=== PATIENT | male | born 1960 | race Caucasian/White ===

== ENCOUNTER → 2018-04-08 15:50 | Outpatient (CLI) | payer MEDICARE, OTHER, SELFPAY ==
[2018-04-08 16:09] LABS: Basophils % 0.7 % (0.1-2.0); Eosinophils % 0.6 % (0.1-12.0); Hemoglobin 15.1 g/dL (14.1-18.0); Lymphocytes # 1.2 K/mm3 (0.7-4.5); Lymphocytes % 26.5 K/mm3 (10-50); Mean Corpuscular HGB Conc 32.2 g/dL (31.8-35.4); Mean Corpuscular Volume 93.2 fl (80-94); Mean Platelet Volume 8.8 fl (7.4-10.4); Monocytes # 0.2 K/mm3 (0.1-1.0); Monocytes % 4.8 % (1.7-9.3); Neutrophils # 2.9 K/mm3 (1.8-7.8); Neutrophils % 67.4 % (37.0-80.0); Platelet Count 115 K/mm3 (142-424); Red Blood Count 5.04 M/mm3 (4.60-6.20); Red Cell Distribution Width 13.1 % (11.5-17.5); White Blood Count 4.3 K/mm3 (4.8-10.8)
--- NOTE | 2018-04-08 16:16 | XR_ITS ---
XR chest 2V HISTORY: ORDERING PHYSICIAN: Fredi Whatley MD PATIENT AGE: 58 years COMPARISON: None FINDINGS: There is extensive gaseous distention of both large and small bowel with bilateral bowel interposition under the hemidiaphragm somewhat similar when compared 07/03/2014. There is mild bibasilar atelectasis. Unremarkable cardiovascular structures. Bone plate is noted over the right humerus. Upper lobes are clear. IMPRESSION: Elevated hemidiaphragm with gaseous distended large and small bowel with bowel interposition and mild bibasilar atelectasis
[2018-04-08 18:42] LABS: Anion Gap 12.5 mEq/L (5-15); Blood Urea Nitrogen 13 mg/dL (7-18); Calcium 9.3 mg/dL (8.5-10.1); Carbon Dioxide 30 mmol/L (21.0-32.0); Chloride 104 mmol/L (98-107); Creatinine,Serum 0.94 mg/dL (0.70-1.30); Estimated Glomerular Filt Rate 82 ml/min (>60); GFR (African American) 99 ML/MIN (>60); Glucose 94 mg/dL (74-106); Potassium 4.5 mmoL/L (3.5-5.1); Sodium 142 mmol/L (136-145)
== END ==
PROVIDERS: PCP Emergency Medicine; Visit Provider Orthopaedic Surgery
DX: Z01.818 Encounter for other preprocedural examination (principal); S62.101A Fracture of unspecified carpal bone, right wrist, initial encounter for closed fracture; S52.531A Colles' fracture of right radius, initial encounter for closed fracture; S52.601A Unspecified fracture of lower end of right ulna, initial encounter for closed fracture
CPT/HCPCS: 36415; 71046; 80048; 85025; 93005

== ENCOUNTER 2018-04-10 09:57 | Day surgery (SDC) | payer MEDICARE, OTHER, SELFPAY ==
[2018-04-09 14:04] VITALS: BMI 21.9
[2018-04-10] VITALS (11 sets, daily range): BP systolic 97–116; BP diastolic 68–84; PULSE 63–78; RESP 16–20; TEMP 36.2–43; O2SAT 94–99; BMI 21.9
--- NOTE | 2018-04-10 11:47 | P.PN_ITS ---
[facility] Anesthesia Checklist - Patient Identification Patient Identification: Arm Band, Verbal (Name & ) - Structural Data Admitted From: Home Planned Operative Procedure/s: Extra articular right distal radius ORIF Consent for Planned Operative Procedure(s) Verified: Yes Verified Documents: Surgical Consent, History and Physical - NPO Status Verified Time NPO: 20:00 - Additional verifications Anesthesia Reactions: No - Airway Assessment C-Spine Mobility Assessed: Yes TMJ Mobility Assessed: Yes Dentition: Good Dentition - Neurological Assessment Level of Consciousness: Awake Hx Seizures: Yes (Last episode 06/2014) Numbness or tingling in extremities: No - Anesthesia Plan Anesthesia Risk discussed: Yes Anesthesia Plan: Verified ASA Class: III Anesthesia Type: General - Preoperative Comments Pre-Operative Comments: Right Supraclaviculer nerve block [facility] Anesthesia HX I have reviewed the patient's past medical history: Yes Medical History: Reports:: Seizures Denies:: Cancer, Diabetes Mellitus Type 1, Diabetes Mellitus Type 2, Internal Pacemaker, MRSA Other Medical History: Denies: Blood Transfusion Reaction Other Surgeries: Yes: No Previous Surgery. No: Pacemaker Amputation: No Fractures: No *Family Hx:: Unable to obtain
--- NOTE | 2018-04-10 14:24 | XR_ITS ---
XR wrist RT 2V HISTORY ORIF right wrist ITS.REASON: IN OR ORIF,,1:50 FLUORO TIME ORDERING PHYSICIAN: Fredi Whatley MD PATIENT AGE: 58 years Comparison: 04/01/2018 FINDINGS: Fluoroscopy with C-arm utilized for ORIF of the comminuted right wrist fracture. Volar bone plate is present with multiple screws with good alignment of fracture fragments with minimal lateral displacement of the distal fracture fragment. IMPRESSION: Good alignment status post ORIF right distal radial fracture
--- NOTE | 2018-04-10 15:07 | HMH.ANESI ---
[facility] Anesthesia Record Part I Intake, IV Amount: 1,100 Estimated blood loss (mL): 50 Urine output (mL): 0 Blood Products used (#): none Blood Pressure: 115/84 SaO2: 96 Pulse Rate: 72 Respiratory Rate: 16 Temperature: 99.2 F Patient is:: Awake, Stable Stable to PACU at:: 15:02
--- NOTE | 2018-04-10 15:08 | P.PN_ITS ---
[facility] Anesthesia Record Part II Discharge Time: 15:32 Destination: [facility] PACU nurse assessment reviewed?: Yes Patient Condition:: Good Anesthesia Complications:: None
--- NOTE | 2018-04-10 15:08 | HMH.ANESII ---
[facility] Anesthesia Record Part II Discharge Time: 15:32 Destination: [facility] PACU nurse assessment reviewed?: Yes Patient Condition:: Good Anesthesia Complications:: None
--- NOTE | 2018-04-10 16:05 | PC.NURSE ---
1525[facility] 1 [address] dr last orders. see emar.
--- NOTE | 2018-04-11 12:04 | HMH.OPNOTE ---
Date of procedure: 04/10/18 Pre-op Diagnosis:: 1. Closed, comminuted, displaced distal radius fracture, right wrist 2. Closed, nondisplaced fracture distal ulna and ulnar styloid process, right wrist Post-op Diagnosis:: 1. Closed, comminuted, displaced distal radius fracture, right wrist 2. Closed, nondisplaced fracture distal ulna and ulnar styloid process, right wrist Procedure performed:: Open reduction and internal fixation, right distal radius Surgeon:: Fredi Whatley MD Weed Cutter(s):: Jessie Mccauley FISH SKINNING MACHINE FEEDER:: Other (Carlos Walker) Anesthesia: GETA, regional Estimated blood loss (mL): 30 Clinical Note:: Patient is a 58-year-old ambidextrous male who sustained a closed, comminuted and displaced fracture of her right distal radius and nondisplaced fracture of the right distal ulna following a mechanical fall about a week ago. Evaluation including x-rays of his right wrist showed a closed, comminuted and displaced fracture of the right distal radius and nondisplaced fracture of the distal ulna and ulnar styloid process. There was dorsal displacement and angulation angulation and foreshortening of the radius with loss of radial inclination and loss of the normal volar tilt of the distal radius. Surgery was indicated to reduce and stabilize the fracture in order to decrease pain, restore the anatomy and function. Operative findings:: Displaced, comminuted and unstable fracture of the right distal radius and a nondisplaced fracture of the distal ulna and ulnar styloid process as noted on the preoperative x-rays. Bone was noted to be osteoporotic and soft. Operative note:: On the day of the procedure, the patient was met in the preoperative area. The patient was positively identified, physical examination performed and documented. Following a detailed discussion with the patient about the management options including both nonsurgical and surgical, he elected to proceed with surgical remediation. After appropriate workup, the patient was brought to the hospital for surgery. I have again discussed the details of the procedure, risks and benefits, alternatives and the expected outcomes. The complications discussed include but are not limited to infection, bleeding, injury to nerves, tendons and blood vessels, incisional scar (cosmesis), DVT/PE, malunion, nonunion/delayed union, loss of position, refracture, wrist/finger stiffness, CRPS (complex regional pain syndrome- pain, sensory and temperature changes, swelling and stiffness), painful/prominent hardware, loss of fixation/hardware failure, incomplete relief of pain, incomplete return of function, posttraumatic arthritis and likely need for further surgery in future and also the risks of anesthesia including heart attack, stroke, and even . I have discussed how there is a small but real possibility of loss of use of the arm, loss of the limb or loss of life itself. I have also explained how additional surgery may be required if there are any complications or the fracture fails to heal. We have also discussed the postoperative pain management, recovery and rehabilitation, immobilization required, the likely need for physical therapy, the possibility of stiffness, chronic pain and we've also discussed the option of nonsurgical treatment. Patient expressed a full understanding and wished to proceed. The operative side was marked and the consent form was reviewed and signed. Patient was then brought to the operating room and placed supine on the table. The right upper extremity was placed over an arm table. All the bony prominences were well padded. A general anesthesia was administered by the anesthetic team. Prior to the patient had a scalene nerve block in the preoperative area. A well-padded tourniquet cuff was applied over the right upper arm. The right upper extremity was prepped and draped in the usual sterile fashion. A preprocedure timeout was performed as per hospital protocol. 2 g of IV Ancef wa
--- NOTE | 2018-04-11 12:58 | P.OP_ITS ---
Date of procedure: 04/10/18 Pre-op Diagnosis:: 1. Closed, comminuted, displaced distal radius fracture, right wrist 2. Closed, nondisplaced fracture distal ulna and ulnar styloid process, right wrist Post-op Diagnosis:: 1. Closed, comminuted, displaced distal radius fracture, right wrist 2. Closed, nondisplaced fracture distal ulna and ulnar styloid process, right wrist Procedure performed:: Open reduction and internal fixation, right distal radius Surgeon:: Fredi Whatley MD Document Scanner(s):: Jessie Mccauley ELECTRICAL EQUIPMENT ASSEMBLER:: Other (Carlos Walker) Anesthesia: GETA, regional Estimated blood loss (mL): 30 Clinical Note:: Patient is a 58-year-old ambidextrous male who sustained a closed, comminuted and displaced fracture of her right distal radius and nondisplaced fracture of the right distal ulna following a mechanical fall about a week ago. Evaluation including x-rays of his right wrist showed a closed, comminuted and displaced fracture of the right distal radius and nondisplaced fracture of the distal ulna and ulnar styloid process. There was dorsal displacement and angulation angulation and foreshortening of the radius with loss of radial inclination and loss of the normal volar tilt of the distal radius. Surgery was indicated to reduce and stabilize the fracture in order to decrease pain, restore the anatomy and function. Operative findings:: Displaced, comminuted and unstable fracture of the right distal radius and a nondisplaced fracture of the distal ulna and ulnar styloid process as noted on the preoperative x-rays. Bone was noted to be osteoporotic and soft. Operative note:: On the day of the procedure, the patient was met in the preoperative area. The patient was positively identified, physical examination performed and documented. Following a detailed discussion with the patient about the management options including both nonsurgical and surgical, he elected to proceed with surgical remediation. After appropriate workup, the patient was brought to the hospital for surgery. I have again discussed the details of the procedure, risks and benefits, alternatives and the expected outcomes. The complications discussed include but are not limited to infection, bleeding, injury to nerves, tendons and blood vessels, incisional scar (cosmesis), DVT/PE , malunion, nonunion/delayed union, loss of position, refracture, wrist/finger stiffness, CRPS (complex regional pain syndrome- pain, sensory and temperature changes, swelling and stiffness), painful/prominent hardware, loss of fixation/ hardware failure, incomplete relief of pain, incomplete return of function, posttraumatic arthritis and likely need for further surgery in future and also the risks of anesthesia including heart attack, stroke, and even . I have discussed how there is a small but real possibility of loss of use of the arm, loss of the limb or loss of life itself. I have also explained how additional surgery may be required if there are any complications or the fracture fails to heal. We have also discussed the postoperative pain management, recovery and rehabilitation, immobilization required, the likely need for physical therapy, the possibility of stiffness, chronic pain and we've also discussed the option of nonsurgical treatment. Patient expressed a full understanding and wished to proceed. The operative side was marked and the consent form was reviewed and signed. Patient was then brought to the operating room and placed supine on the table. The right upper extremity was placed over an arm table. All the bony prominences were well padded. A general anesthesia was administered by the anesthetic team. Prior to the patient had a scalene nerve block in the preoperative a
== END 2018-04-10 16:25 | disposition hospice, home (50) ==
PROVIDERS: PCP Emergency Medicine; Visit Provider Orthopaedic Surgery
PROC: (CPT 25608; principal; 2018-04-10 11:30)
DX: S52.501A Unspecified fracture of the lower end of right radius, initial encounter for closed fracture (principal); S52.614A Nondisplaced fracture of right ulna styloid process, initial encounter for closed fracture; W19.XXXA Unspecified fall, initial encounter
CPT/HCPCS: 25608; 73100; 76000; 93005; 96374; C1713; C1769; C1776; J2405

== ENCOUNTER → 2018-04-25 10:03 | Outpatient (CLI) | payer MEDICARE, OTHER, SELFPAY ==
--- NOTE | 2018-04-25 10:10 | XR_ITS ---
XR wrist RT min 3V HISTORY: Follow-up right wrist fracture ITS.REASON: sp ORIF rt wrist/ cast applied ORDERING PHYSICIAN: Fredi Whatley MD PATIENT AGE: 58 years COMPARISON: Right wrist 04/01/2018 FINDINGS: The metallic orthopedic plate is seen fixating to the volar surface of the distal radius fixated by multiple threaded screws with the previously angulated for now is near anatomic alignment. The chip fracture of the ulnar styloid is faintly seen through the density of the cast. IMPRESSION: Satisfactory ORIF distal radial fracture with stable essentially nondisplaced fracture of the ulnar styloid
== END ==
PROVIDERS: Visit Provider Orthopaedic Surgery
DX: Z09 Encounter for follow-up examination after completed treatment for conditions other than malignant neoplasm (principal); S62.101A Fracture of unspecified carpal bone, right wrist, initial encounter for closed fracture; S52.531A Colles' fracture of right radius, initial encounter for closed fracture; S52.601A Unspecified fracture of lower end of right ulna, initial encounter for closed fracture
CPT/HCPCS: 73110

== ENCOUNTER → 2018-05-23 09:06 | Outpatient (CLI) | payer MEDICARE, OTHER, SELFPAY ==
--- NOTE | 2018-05-23 09:11 | XR_ITS ---
XR wrist RT min 3V HISTORY: Distal radial and ulnar styloid fracture ITS.REASON: s/p ORIF rt wrist surgery 04/10/18 ORDERING PHYSICIAN: Fredi Whatley MD PATIENT AGE: 58 years COMPARISON: Right wrist within the cast 04/25/2018 FINDINGS: The cast has been removed. The volar metallic plate is again seen transfixing the distal radial fracture. There is blurring of the fracture line suggesting partial healing. The ulnar styloid chip fractures unchanged in appearance and probably will never completely fuse. IMPRESSION: Interval healing of comminuted distal radial fracture
== END ==
PROVIDERS: Visit Provider Orthopaedic Surgery
DX: Z09 Encounter for follow-up examination after completed treatment for conditions other than malignant neoplasm (principal)
CPT/HCPCS: 73110

== ENCOUNTER 2018-07-08 08:00 | Outpatient (RCR) | payer MEDICARE, OTHER, SELFPAY | END 2018-07-08 08:01 | disposition home or self-care (01) | LOC: OT 08:00 | PROVIDERS: PCP Emergency Medicine; Visit Provider Orthopaedic Surgery | DX: S52.531A Colles' fracture of right radius, initial encounter for closed fracture (principal) | CPT/HCPCS: 97110; 97140; 97166 ==

== ENCOUNTER → 2018-07-18 09:18 | Outpatient (CLI) | payer MEDICARE, OTHER, SELFPAY ==
--- NOTE | 2018-07-18 09:22 | XR_ITS ---
XR wrist RT min 3V HISTORY follow-up ORIF ITS.REASON: sp orif rt wrist sx 04/10/18 ORDERING PHYSICIAN: Fredi Whatley MD PATIENT AGE: 58 years Comparison: 05/23/2018 FINDINGS: Anterior bone plate remains in place stabilizing the transverse distal radial fracture with good alignment. Fracture line still visible along the ulnar aspect. Ulnar styloid avulsion injury once again noted. IMPRESSION: Overall no change nondisplaced distal radial fracture status post ORIF
== END ==
PROVIDERS: PCP Emergency Medicine; Visit Provider Orthopaedic Surgery
DX: Z09 Encounter for follow-up examination after completed treatment for conditions other than malignant neoplasm (principal)
CPT/HCPCS: 73110

== ENCOUNTER → 2022-05-30 09:32 | Outpatient (CLI) | payer MEDICARE, OTHER, SELFPAY ==
--- NOTE | 2022-05-30 09:39 | XR_ITS ---
PROCEDURE INFORMATION: Exam: XR Left Hip Exam date and time: 05/30/2022 9:54 AM Age: 62 years old Clinical indication: Hip pain; Left hip TECHNIQUE: Imaging protocol: Radiologic exam of the Left hip. Views: 2 or 3 views hip with pelvis when performed. COMPARISON: No relevant prior studies available. FINDINGS: Bones/joints: Degenerative spondylosis and facet arthropathy within the lower lumbar spine. Osteophytosis and eburnation of the sacroiliac joints and hips. Soft tissues: Unremarkable. Gastrointestinal tract: Air-filled loops of small and large bowel without definite pathologic distention. Rectal fecal impaction. Vasculature: Phleboliths overlie the pelvic soft tissues. IMPRESSION: 1. Air-filled loops of small and large bowel without definite pathologic distention. Rectal fecal impaction. 2. Degenerative disc disease and facet arthropathy within the lower lumbar spine. 3. 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
== END ==
PROVIDERS: PCP Emergency Medicine; Visit Provider Physician Assistant Surgical
DX: M25.552 Pain in left hip (principal)
CPT/HCPCS: 73502

== ENCOUNTER 2023-06-11 18:56 | Inpatient (IN) | payer MEDICARE, OTHER, SELFPAY ==
[2023-06-11 18:58] VITALS: BP 129/88; PULSE 71; RESP 16; TEMP 36.7; O2SAT 95; BMI 23.6
--- NOTE | 2023-06-11 19:08 | CT_ITS ---
PROCEDURE INFORMATION: Exam: CT Abdomen And Pelvis With Contrast Exam date and time: 06/11/2023 8:21 PM Age: 63 years old Clinical indication: Bloating and vomiting; Abdominal pain; Additional info: Distended abd, abd pain x2 days TECHNIQUE: Imaging protocol: Computed tomography of the abdomen and pelvis with contrast. Radiation optimization: All CT scans at this facility use at least one of these dose optimization techniques: automated exposure control; mA and/or kV adjustment per patient size (includes targeted exams where dose is matched to clinical indication); or iterative reconstruction. Contrast material: ISOVUE; Contrast volume: 75 ml; Contrast route: IV; REPORTING DATA: Count of CT and Cardiac NM exams in prior 12 months: This patient has received 0 known CTs and 0 known cardiac nuclear medicine studies in the 12 months prior to the current study. COMPARISON: CR XR HIP LT 2-3V W/PELVIS 05/30/2022 9:54 AM FINDINGS: Lungs: Bilateral ground-glass regions of opacification. Findings nonspecific and may reflect interstitial lung disease. An acute inflammatory process could not be entirely excluded. Liver: Hepatic steatosis Gallbladder and bile ducts: Normal. No calcified stones. No ductal dilation. Pancreas: Normal. No ductal dilation. Spleen: Normal. No splenomegaly. Adrenal glands: Evaluation limited Kidneys and ureters: Normal. No hydronephrosis. Stomach and bowel: Markedly dilated large bowel loops. Collapse of the rectosigmoid colon. Visualized small bowel loops are collapsed. Appendix: No evidence of appendicitis. Intraperitoneal space: Unremarkable. No free air. No significant fluid collection. Vasculature: Incomplete visualization of twisting of the mesenteric vessels compatible with closed loop obstruction. Lymph nodes: Unremarkable. No enlarged lymph nodes. Urinary bladder: Unremarkable as visualized. Reproductive: Unremarkable as visualized. Bones/joints: Unremarkable. No acute fracture. Soft tissues: Unremarkable. IMPRESSION: 1. Findings suggestive of volvulus. 2. Incomplete visualization of twisting of the mesenteric vessels compatible with closed loop obstruction. 3. A call has been placed to the referring physician at which time an addended report will be issued.
--- NOTE | 2023-06-11 19:10 | HMH.EDGENADL ---
Discharge Plan Disposition Patient Disposition: Admitted Condition: Serious Prescriptions Prescriptions: No Action zonisamide 100 mg capsule 100 mg PO Q12H omeprazole 20 mg capsule,delayed release(DR/EC) 20 mg PO DAILY potassium chloride 10 mEq tablet,ER particles/crystals 10 meq PO DAILY lacosamide [Vimpat] 200 mg tablet See Rx Instructions PO BID Qty: 120 5RF Rx Instructions: 2 tablets PO twice a day; phenobarbital 64.8 mg tablet See Rx Instructions PO .COMPLEX Qty: 150 5RF Rx Instructions: 1 tablet PO daily & 2 tablets qhs for seizures furosemide 40 MG tablet 40 mg PO DAILY montelukast 10 MG tablet 10 mg PO PM loratadine 10 MG tablet 10 mg PO DAILY doxepin 25 mg capsule 75 mg PO PM Referrals Follow up/Referrals: Reji Goodman MD [Primary Care Provider] - See instructions Clinical Impressions Clinical Impression: Sigmoid volvulus Instructions Patient Instructions: DI for Acute Abdominal Pain Discharge ED Provider: Hari Han General Adult HPI General Chief complaint: Abdominal Pain Stated complaint: abd pain Time Seen by Provider: 06/11/23 19:03 History of Present Illness HPI narrative: 63-year-old male, resident at assisted living facility, history of seizures, presents with abdominal distention and pain. Patient reports that his abdomen has been distended for the last couple of days. He reports that he had a tiny amount of hard stool out last night but other than that has not had a normal bowel movement for at least 2 weeks. Reports he has not been passing gas. Patient reports vomiting this morning and yesterday. No prior history of abdominal surgery. No reported fevers. Patient is at baseline mental status per EMS. Related Data Home Medications Medication Instructions Recorded Confirmed furosemide 40 mg tablet 40 mg PO DAILY Fluid 04/01/18 05/30/22 loratadine 10 mg tablet 10 mg PO DAILY allergies 04/01/18 05/30/22 montelukast 10 mg tablet 10 mg PO PM allergies 04/01/18 05/30/22 zonisamide 100 mg capsule 100 mg PO Q12H parkinsons 04/08/18 05/30/22 doxepin 25 mg capsule 75 mg PO PM seizures 05/30/22 05/30/22 omeprazole 20 mg capsule,delayed 20 mg PO DAILY 05/30/22 05/30/22 release potassium chloride 10 mEq 10 meq PO DAILY 05/30/22 05/30/22 tablet,extended release(part/cryst) Previous Rx's Medication Instructions Recorded lacosamide 200 mg tablet (Vimpat) See Rx Instructions PO BID 01/25/23 seizures #120 tabs phenobarbital 64.8 mg tablet See Rx Instructions PO .COMPLEX sz 05/10/23 #150 tabs Allergies Allergy/AdvReac Type Severity Reaction Status Date / Time No Known Allergies Allergy Verified 06/11/23 22:45 [facility] Disclaimer: The information contained in this section may have been updated after the patient was seen, as this information can be updated by other users. Social History Smoking Status: Unknown if ever smoked alcohol intake: never substance use type: denies use current occupational status: disabled Travel in the last 8 weeks: None household members: caregiver housing: assisted living facility current occupational exposures/hazards: No caffeine: No ROS Obtained: Yes All systems reviewed & no additional complaints except as documented Physical Exam General General appearance: alert and in no apparent distress Head Head exam: atraumatic and normocephalic Eye Eye exam: Present normal appearance, PERRL and EOMI ENT ENT exam: Present normal oropharynx and normal external ear exam Neck Neck exam: Present normal inspection and full ROM Chest Chest inspection: Present normal inspection and symmetric chest wall rise; Absent tenderness Respiratory Respiratory exam: Present normal lung sounds bilaterally; Absent respiratory distress Cardiovascular Cardiovascular exam: Present regular rate and normal rhythm Abdominal Exam Abdominal exam: Present
[2023-06-11 19:30] VITALS: BP 127/81; PULSE 67; O2SAT 96
[2023-06-11 19:50] LABS: Basophils % 0.2 % (0.1-2.0); Eosinophils # 0.1 K/mm3 (0.0-0.4); Lymphocytes # 0.9 K/mm3 (0.7-4.5); Lymphocytes % 12.6 % (10-50); Mean Corpuscular HGB Conc 31.9 g/dL (31.8-35.4); Mean Corpuscular Volume 93.9 fl (80-94); Mean Platelet Volume 9.5 fl (7.4-10.4); Monocytes # 0.3 K/mm3 (0.1-1.0); Monocytes % 3.9 % (1.7-9.3); Neutrophils # 5.5 K/mm3 (1.8-7.8); Neutrophils % 82.3 % (37.0-80.0); Platelet Count 107 K/mm3 (142-424); Red Blood Count 5.33 M/mm3 (4.60-6.20); Red Cell Distribution Width 14.2 % (11.5-17.5); White Blood Count 6.7 K/mm3 (4.8-10.8)
[2023-06-11 19:59] LABS: Alanine Aminotransferase 35 U/L (12-78); Albumin Level 4.7 g/dl (3.5-5.0); Albumin/Globulin Ratio 1.6 (1.1-1.8); Alkaline Phosphatase 132 U/L (38-126); Anion Gap 14.1 mEq/L (5-15); Aspartate Amino Transferase 41 U/L (17-59); Bilirubin,Total 0.8 mg/dl (0.2-1.3); Blood Urea Nitrogen 16 mg/dl (9-20); Calcium 9.2 mg/dl (8.4-10.2); Carbon Dioxide 28 mmol/L (22.0-30.0); Chloride 104 mmol/L (98-107); Creatinine Clearance Estimated 76 mL/min (50-200); Estimated Glomerular Filt Rate 85 ml/min (>60); GFR (African American) 102 ML/MIN (>60); Globulin 2.9 g/dL (1.3-3.2); Glucose 133 mg/dl (74-100); Potassium 3.1 mmoL/L (3.5-5.1); Sodium 143 mmol/L (136-145); Total Protein,Serum 7.6 g/dl (6.3-8.2)
[2023-06-11 20:00] VITALS: BP 124/84; PULSE 73; O2SAT 96
[2023-06-11 20:00] LABS: Lactic Acid 1.5 mmol/L (0.7-2.1)
[2023-06-11 21:00] VITALS: BP 136/90; PULSE 84; RESP 18; O2SAT 95
[2023-06-11 21:30] VITALS: BP 132/89; PULSE 88; RESP 20; O2SAT 95
--- NOTE | 2023-06-11 21:43 | PC.NURSE ---
Surgery team paged @ [phone] Darrick Mock returned call @ 2139 [facility] returned call @ 2140 Denise returned call @ [phone]
--- NOTE | 2023-06-11 21:45 | PC.NURSE ---
WENT IN TO ASSIST PT WITH TAKING CLOTHES SHOES AND SOCKS OFF PLACED IN PERSONAL BELONGING BAG AND PT HAD GOWN PUT ON, CALL LIGHT AT BS
--- NOTE | 2023-06-11 21:56 | EXP.SURG.CON ---
History of Present Illness *Admission Date: 06/11/23 *Reason for visit:: Volvulus *History of present illness: This is a 63-year-old gentleman who presented to the emergency department with increasing abdominal pain/distention. Evaluation included a CT scan revealed massive colonic distention which changes most consistent with likely sigmoid volvulus. More profound volvulus to include transverse colon and cecum not able to be radiographically excluded. Forwarded from emergency department evaluation: 63-year-old male, resident at assisted living facility, history of seizures, presents with abdominal distention and pain. Patient reports that his abdomen has been distended for the last couple of days. He reports that he had a tiny amount of hard stool out last night but other than that has not had a normal bowel movement for at least 2 weeks. Reports he has not been passing gas. Patient reports vomiting this morning and yesterday. No prior history of abdominal surgery. No reported fevers. Patient is at baseline mental status per EMS. [facility] Disclaimer: The information contained in this section may have been updated after the patient was seen, as this information can be updated by other users. Social History Smoking Status: Unknown if ever smoked alcohol intake: never substance use type: denies use current occupational status: disabled Travel in the last 8 weeks: None household members: caregiver housing: assisted living facility current occupational exposures/hazards: No caffeine: No Meds Home Medications and Allergies Home Medications Medication Instructions Recorded Confirmed Type furosemide 40 mg tablet 40 mg PO DAILY Fluid 04/01/18 05/30/22 History loratadine 10 mg tablet 10 mg PO DAILY allergies 04/01/18 05/30/22 History montelukast 10 mg tablet 10 mg PO PM allergies 04/01/18 05/30/22 History zonisamide 100 mg capsule 100 mg PO Q12H parkinsons 04/08/18 05/30/22 History doxepin 25 mg capsule 75 mg PO PM seizures 05/30/22 05/30/22 History omeprazole 20 mg capsule,delayed 20 mg PO DAILY 05/30/22 05/30/22 History release potassium chloride 10 mEq 10 meq PO DAILY 05/30/22 05/30/22 History tablet,extended release(part/cryst) lacosamide 200 mg tablet (Vimpat) See Rx Instructions PO BID 01/25/23 Rx seizures #120 tabs phenobarbital 64.8 mg tablet See Rx Instructions PO .COMPLEX sz 05/10/23 Rx #150 tabs New Prescriptions to Start Prescriptions: Allergies Allergy/AdvReac Type Severity Reaction Status Date / Time No Known Allergies Allergy Verified 05/30/22 10:42 Exam (Inpt) Vital signs and Labs for Last 24 Hours: Temp Pulse Resp BP Pulse Ox O2 Del Method 98.1 F 88 20 132/89 95 Room Air 06/11/23 18:58 06/11/23 21:30 06/11/23 21:30 06/11/23 21:30 06/11/23 21:30 06/11/23 20:00 Laboratory Results - last 24 hr 06/11/23 19:40: WBC 6.7, RBC 5.33, Hgb 16.0, Hct 50.0, MCV 93.9, MCH 30.0, MCHC 31.9, RDW 14.2, Plt Count 107 L, MPV 9.5, Neut % (Auto) 82.3 H, Lymph % (Auto) 12.6, [place] % (Auto) 3.9, Eos % (Auto) 1.0, Baso % (Auto) 0.2, Neut # (Auto) 5.5, Lymph # (Auto) 0.9, [place] # (Auto) 0.3, Eos # (Auto) 0.1, Baso # (Auto) 0.0, Sodium 143, Potassium 3.1 L, Chloride 104, Carbon Dioxide 28, Anion Gap 14.1, BUN 16, Creatinine 0.90, Estimated Creat Clear 76, Estimated GFR 85, Est GFR ( Amer) 102, Glucose 133 H, Lactate 1.5, Calcium 9.2, Total Bilirubin 0.8, AST 41, ALT 35, Alkaline Phosphatase 132 H, Total Protein 7.6, Albumin 4.7, Globulin 2.9, Albumin/Globulin Ratio 1.6 I & O for Labs for Last 24 Hours: Intake & Output 06/09/23 06/10/23 06/11/23 06/12/23 11:59 11:59 11:59 11:59 Weight 160 lb Constitutional: no acute distress Respiratory: Absent respiratory distress Cardiac: Absent Tachycardia GI: Present distention Comments:: Profound Results Labs 06/11/23 19:40 06/11/23 19:40 Labs: Laboratory Results - last
[2023-06-11 22:29] VITALS: BP 122/84; PULSE 75; RESP 18; TEMP 36.6
--- NOTE | 2023-06-11 23:09 | HMH.SCOPE ---
Procedure: Date: 06/11/23 Patient Date of :: 1960 Procedure Performed:: Flexible sigmoidoscopy Indications:: Sigmoid volvulus Performing Provider:: Geo Smith MD Referring Provider:: Emergency department Sedation:: Monitored anesthesia care Procedure:: After informed consent was obtained the patient was taken to the endoscopy suite. Sedation ensued after the patient was transferred to the left lateral decubitus position. Pulse, blood pressure, and oxygen saturation were monitored throughout the procedure. Digital rectal exam revealed no significant abnormality. The colonoscope was placed in position. Very large amount of stool was noted throughout the rectum and sigmoid colon. Multiple attempts at advancement of the colonoscope were unsuccessful in obtaining decompression. Additional efforts were deemed unwarranted and the decision was made to proceed with surgical intervention. The colonoscope was carefully removed and the patient was transferred to recovery in stable condition. Please see findings and specimens below for detail. Findings:: Rectum/sigmoid with large volume of stool Unable to successfully decompress volvulus Specimens:: None Recommendations:: The patient was transferred emergently to the operating room Complications:: No immediate Estimated blood obtained (mL): 0 Colonoscopy Component Colonoscopy Component Was a colonoscopy performed during today's procedure?: No
[2023-06-12] VITALS (37 sets, daily range): BP systolic 87–121; BP diastolic 46–76; PULSE 68–90; RESP 12–22; TEMP 35.7–37.2; O2SAT 94–98; BMI 20.5
--- NOTE | 2023-06-12 02:30 | EXP.OP.NOTE ---
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 Decompression was not able to be accomplished. Please see separate endoscopy report. He was then transferred to the operative suite where his abdomen was prepped and draped in a sterile fashion. A midline laparotomy incision was made. A tiny serosal laceration to the proximal/mid small bowel was noted during entry with scalpel. This was felt to be due to the degree with which the small bowel was compressed to the anterior abdominal wall secondary to underlying massive colonic distention. Although this did appear to be a small serosal only injury, imbrication with interrupted 3-0 Nurolon was completed. A massively dilated right colon and transverse colon were noted. The right colon/cecum was partially volvulized; however, further evaluation revealed that this was secondary to the primary causative transverse torsion. The massive cecal distention and patchy serosal changes however made a subtotal colectomy necessary. The right colon was carefully elevated as the mesentery was taken at the colonic margin with a combination of electrocautery and the Enseal device. The terminal ileum was transected with the linear stapler. The massively dilated transverse colon was then detorsed. The mesenteric dissection continued to just beyond the splenic flexure. The sigmoid colon appeared viable with no significant dilatation. The decision was made to proceed with subtotal colectomy, sigmoid mucous fistula, and end ileostomy. Of note, the right and proximal transverse colon was with the linear stapler to essentially remove weight from the operative field with concomitant secondary torsion. The transverse colon was treated in a similar manner. The third specimen (the splenic flexure) was treated in a similar manner. With all 3 specimens passed off for pathologic evaluation attention was turned to creation of a sigmoid mucous fistula and end ileostomy. Bilateral lower quadrant skin incisions were made. The left lower quadrant incision was much smaller as it was for the mucous fistula. The underlying fascia was then transected in a cruciate manner. The sigmoid colon margin was then brought through the defect with Downey. In a similar manner the ileostomy site was created on the right. The serosa was approximated intra-abdominally with interrupted 2-0 Vicryl. The midline laparotomy incision was reapproximated with running #2 Novafil. Skin was stapled. The ileostomy and mucous fistula were then matured with interrupted 3-0 Vicryl. Dressings were applied and the patient was transferred to recovery in stable condition after extubation. Note: Due to the emergent nature of the patient's procedures, official informed consent (POA) could not be obtained. The patient did appear to understand and agreed to proceed. Condition: stable Disposition: PACU Specimens:: Right/proximal transverse colon Transverse colon Splenic flexure Note: The above specimens were secondary to overall size/weight and secondary concomitant torque on remaining structures. Complications:: No immediate
[2023-06-12 02:52] LABS: Basophils % 0.1 % (0.1-2.0); Eosinophils # 0.1 K/mm3 (0.0-0.4); Eosinophils % 1.2 % (0.1-12.0); Hematocrit 47.2 % (42.0-52.0); Hemoglobin 14.5 g/dL (14.1-18.0); Lymphocytes # 0.5 K/mm3 (0.7-4.5); Mean Corpuscular HGB Conc 30.7 g/dL (31.8-35.4); Mean Corpuscular Hemoglobin 29.5 pg (27.0-31.2); Mean Corpuscular Volume 96.1 fl (80-94); Mean Platelet Volume 9.2 fl (7.4-10.4); Monocytes # 0.2 K/mm3 (0.1-1.0); Monocytes % 3.5 % (1.7-9.3); Neutrophils # 4.6 K/mm3 (1.8-7.8); Neutrophils % 86.1 % (37.0-80.0); Platelet Count 90 K/mm3 (142-424); Red Blood Count 4.91 M/mm3 (4.60-6.20); Red Cell Distribution Width 14.2 % (11.5-17.5); White Blood Count 5.3 K/mm3 (4.8-10.8)
--- NOTE | 2023-06-12 02:56 | EXP.ANES.CKL ---
[facility] Disclaimer: The information contained in this section may have been updated after the patient was seen, as this information can be updated by other users. Social History Smoking Status: Unknown if ever smoked alcohol intake: never substance use type: denies use current occupational status: disabled Travel in the last 8 weeks: None household members: caregiver housing: assisted living facility current occupational exposures/hazards: No caffeine: No [facility] Anesthesia Checklist Patient Identification Patient Identification: Arm Band Structural Data Admitted From: Emergency Dept Planned Operative Procedure/s: Sigmoidectomy Consent for Planned Operative Procedure(s) Verified: Yes Verified Documents: Surgical Consent and History and Physical NPO Status Verified Time NPO: 00:00 Additional verifications Patient : No Anesthesia Reactions: No Hx Blood Transfusions: No Blood Transfusion Reaction: No Cephalosporin Allergy: No Previous Colonoscopy: No Cardiovascular Assessment Peripheral Edema: No Airway Assessment Mallampati Score:: Class III C-Spine Mobility Assessed: Yes TMJ Mobility Assessed: Yes Dentition: Poor Dentition Neurological Assessment Level of Consciousness: Awake, Alert, Appropriate and Follows Commands Hx Seizures: Yes Anesthesia Plan Anesthesia Risk discussed: Yes ASA Class: III Anesthesia Type: General
--- NOTE | 2023-06-12 02:57 | EXP.ANES.I ---
[facility] Anesthesia Record Part I Anesthesia Record I Intake, IV Amount: 1,800 Hydration: Adequate Estimated blood loss (mL): 200 Urine output (mL): 200 Blood Products used (#): none Blood Pressure: 107/69 SaO2: 96 Pulse Rate: 72 Airway Patency: Patent Respiratory Rate: 22 Temperature: 96.2 F Pain scale (0-10): 0 Nausea: No Vomiting: No Patient is:: Drowsy and Stable Stable to PACU at:: 02:40
[2023-06-12 03:06] LABS: Anion Gap 15.9 mEq/L (5-15); Blood Urea Nitrogen 17 mg/dl (9-20); Calcium 8.1 mg/dl (8.4-10.2); Carbon Dioxide 23 mmol/L (22.0-30.0); Chloride 107 mmol/L (98-107); Creatinine Clearance Estimated 76 mL/min (50-200); Estimated Glomerular Filt Rate 113 ml/min (>60); GFR (African American) 137 ML/MIN (>60); Glucose 172 mg/dl (74-100); Sodium 143 mmol/L (136-145)
[2023-06-12 03:11] LABS: MANUAL DIFFERENTIAL MANUAL DIFFERENTIAL (MANUAL DIFF)
[2023-06-12 03:12] LABS: Potassium 2.9 mmoL/L (3.5-5.1)
--- NOTE | 2023-06-12 03:13 | PC.NURSE ---
critical potassium of 2.9 reported by annia in lab, name and verified, AYDIN Paula notified
--- NOTE | 2023-06-12 03:14 | PC.NURSE ---
pt to floor via stretcher at this time
--- NOTE | 2023-06-12 03:29 | EXP.HP ---
History of Present Illness *Admission Date: 06/11/23 *Reason for visit:: transverse colon volvuslus w/ secondary cecal voulus *History of present illness: 63 year old male presented to the ED from [place] for c/o abd pain, bloating, constipation for the last two weeks. PMHX of seizures and chronic hip pain. The ED workup revealed hypokalemia and a massively distended colon with swirl sign suggesting a sigmoid volvulus. The ED physician spoke with Dr. Smith for surgical consultation and the hospitalist team for admission and medical management of the patient. The patient was then taken to the Endoscopy suite to attempt decompression. 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 He is alert and oriented. NG tube is in place and connected to low wall suction. A surgical consult will be placed to assist with further medical management. [facility] Disclaimer: The information contained in this section may have been updated after the patient was seen, as this information can be updated by other users. Social History Smoking Status: Unknown if ever smoked alcohol intake: never substance use type: denies use current occupational status: disabled Travel in the last 8 weeks: None household members: caregiver housing: assisted living facility current occupational exposures/hazards: No caffeine: No Review of Systems Review of Systems Review of systems:: pertinent systems reviewed and negative unless documented below *Cardiovascular Cardiovascular: Reports system reviewed and no additional complaints, except as documented *Respiratory Respiratory: Reports system reviewed and no additional complaints, except as documented *Gastrointestinal Gastrointestinal: Reports abdominal pain *Genitourinary Genitourinary: Reports system reviewed and no additional complaints, except as documented *Musculoskeletal Musculoskeletal: Reports system reviewed and no additional complaints, except as documented *Neurologic Neurologic: Reports system reviewed and no additional complaints, except as documented Meds Home Medications and Allergies Home Medications Medication Instructions Recorded Confirmed Type furosemide 40 mg tablet 40 mg PO DAILY Fluid 04/01/18 06/12/23 History loratadine 10 mg tablet 10 mg PO DAILY allergies 04/01/18 06/12/23 History montelukast 10 mg tablet 10 mg PO HS allergies 04/01/18 06/12/23 History zonisamide 100 mg capsule 100 mg PO Q12H Seizures 04/08/18 06/12/23 History omeprazole 20 mg capsule,delayed 20 mg PO DAILY Acid Reflux 05/30/22 06/12/23 History release potassium chloride 10 mEq 10 meq PO DAILY potassium 05/30/22 06/12/23 History tablet,extended release(part/cryst) replacement acetaminophen 650 mg tablet 650 mg PO Q6H PRN Pain 06/12/23 06/12/23 History doxepin 75 mg capsule 75 mg PO HS Insomnia 06/12/23 06/12/23 History lacosamide 200 mg tablet (Vimpat) 400 mg PO BID seizures 06/12/23 06/12/23 History loperamide 2 mg capsule 2 mg PO Q3H PRN Diarrhea 06/12/23 06/12/23 History phenobarbital 64.8 mg tablet 64.8 mg PO AM seizures 06/12/23 06/12/23 History phenobarbital 64.8 mg tablet 129.6 mg PO HS seizures 06/12/23 06/12/23 History New Prescriptions to Start Prescriptions: Allergies Allergy/AdvReac Type Severity Reaction Status Date / Time No Known Allergies Allergy Verified 06/11/23 22:45 Exam Data for Last 24 hours Vital signs and Labs for Last 24 Hours: Temp Pulse Resp BP Pulse Ox O2 Del Method 97.6 F 68 15 121/72 97 Room Air 06/12/23 03:09 06/12/23 03:09 06/12/23 03:09 06/12/23 03:06/12/23 03:06/12/23 03:09 Laboratory Results - last 24 hr 06/11/23 19:40: WBC 6.7, RBC 5.33, Hgb 16.0, Hct 50.0, MCV 93
[2023-06-12 04:07] LABS: Magnesium 1.8 mg/dl (1.6-2.3)
--- NOTE | 2023-06-12 04:42 | P.PNANES_ITS ---
[facility] Disclaimer: The information contained in this section may have been updated after the patient was seen, as this information can be updated by other users. Social History Smoking Status: Unknown if ever smoked alcohol intake: never substance use type: denies use current occupational status: disabled Travel in the last 8 weeks: None household members: caregiver housing: assisted living facility current occupational exposures/hazards: No caffeine: No [facility] Anesthesia Checklist Patient Identification Patient Identification: Arm Band and Family Structural Data Admitted From: Home Planned Operative Procedure/s: 40 weeks gestation, here for labor and delivery. Consent for Planned Operative Procedure(s) Verified: Yes Verified Documents: Surgical Consent and History and Physical NPO Status Verified Time NPO: 00:00 Additional verifications Patient : Yes Anesthesia Reactions: No Hx Blood Transfusions: No Blood Transfusion Reaction: No Cephalosporin Allergy: No Previous Colonoscopy: No Airway Assessment Mallampati Score:: Class I C-Spine Mobility Assessed: Yes TMJ Mobility Assessed: Yes Dentition: Good Dentition Neurological Assessment Level of Consciousness: Awake, Alert, Appropriate and Follows Commands Hx Seizures: No Anesthesia Plan Anesthesia Risk discussed: Yes ASA Class: I Anesthesia Type: Epidural
--- NOTE | 2023-06-12 04:43 | EXP.ANES.I ---
[facility] Anesthesia Record Part I Anesthesia Record I Intake, IV Amount: 900 Hydration: Adequate Estimated blood loss (mL): 600 Urine output (mL): 0 Blood Products used (#): none Blood Pressure: 140/80 SaO2: 97 Pulse Rate: 108 Airway Patency: Patent Respiratory Rate: 18 Temperature: 97.4 F Pain scale (0-10): 0 Nausea: No Vomiting: No Patient is:: Awake and Stable Stable to PACU at:: 04:23
[2023-06-12 04:53] LABS: Acanthocytes 1+; Lymphocytes % 13 % (10-50); Monocytes % 3 % (2-9); Neutrophils % 84 % (42-76); Platelet Estimate Normal; Total Cells Counted 100
[2023-06-12 04:59] LABS: Microscopic, Urine URINE MICROSCOPIC (MICROSCOPIC)
[2023-06-12 05:00] LABS: Appearance,Urine CLEAR (Clear); Bilirubin,Urine Negative (Negative); Blood, Urine TRACE-I (Negative); Color,Urine YELLOW (Yellow); Glucose,Urine (UA) Negative (Negative); Ketones,Urine TRACE (Negative); Leukocyte Esterase,Urine Negative (Negative); Nitrate,Urine Negative (Negative); Protein,Urine TRACE (Negative); Urobilinogen,Urine 0.2 EU/dl (0.2)
[2023-06-12 05:50] LABS: Bacteria,Urine 1+ /lpf; Mucus,Urine 1+ /lpf; WBC,Urine Occasional #/hpf (0-3)
--- NOTE | 2023-06-12 06:34 | PC.NURSE ---
educated pt. on use of egg breaker, verbalized understanding, will need continued teaching. verified egg breaker with Kayleigh Hammonds RN.
--- NOTE | 2023-06-12 06:55 | PC.NURSE ---
med rec and some admission questions unable to be answered due to pt. confusion.
--- NOTE | 2023-06-12 07:47 | PC.NURSE ---
LEGISLATIVE ANALYST cleared with Ernie Gomez RN, 3 mg used this shift
[2023-06-12 08:38] LABS: Basophils % 0.2 % (0.1-2.0); Eosinophils # 0.1 K/mm3 (0.0-0.4); Eosinophils % 0.9 % (0.1-12.0); Hematocrit 43.9 % (42.0-52.0); Hemoglobin 14.2 g/dL (14.1-18.0); Lymphocytes # 0.5 K/mm3 (0.7-4.5); Lymphocytes % 6.3 % (10-50); Mean Corpuscular HGB Conc 32.4 g/dL (31.8-35.4); Mean Corpuscular Hemoglobin 30.1 pg (27.0-31.2); Mean Corpuscular Volume 92.8 fl (80-94); Mean Platelet Volume 9.6 fl (7.4-10.4); Monocytes # 0.4 K/mm3 (0.1-1.0); Monocytes % 4.6 % (1.7-9.3); Neutrophils # 7.3 K/mm3 (1.8-7.8); Platelet Count 92 K/mm3 (142-424); Red Blood Count 4.73 M/mm3 (4.60-6.20); Red Cell Distribution Width 14.5 % (11.5-17.5); White Blood Count 8.3 K/mm3 (4.8-10.8)
[2023-06-12 08:48] LABS: Anion Gap 16.1 mEq/L (5-15); Blood Urea Nitrogen 16 mg/dl (9-20); Calcium 8.2 mg/dl (8.4-10.2); Carbon Dioxide 22 mmol/L (22.0-30.0); Chloride 108 mmol/L (98-107); Creatinine Clearance Estimated 65 mL/min (50-200); Estimated Glomerular Filt Rate 113 ml/min (>60); GFR (African American) 137 ML/MIN (>60); Glucose 136 mg/dl (74-100); Potassium 3.1 mmoL/L (3.5-5.1); Sodium 143 mmol/L (136-145)
--- NOTE | 2023-06-12 09:06 | P.CONPHA_ITS ---
Pharmacy Intervention Comments: Home medications were verified using a med list from [facility]. -Leonel Meade, PharmD student
--- NOTE | 2023-06-12 10:32 | P.PNANES_ITS ---
[facility] Anesthesia Record Part II Anesthesia Record Part II Discharge Time: 03:09 Destination: Medical Surgical Department PACU nurse assessment reviewed?: Yes Patient Condition:: Good Anesthesia Complications:: None Swallowing reflex intact?: Yes Airway Patency: Patent Cyanosis?: No Blood Pressure: 121/72 SaO2: 97 Respiratory Rate: 15 Pulse Rate: 68 Temperature: 97.6 F Mental Status: Alert & Oriented Pain level:: 0 Nausea and/or vomitting:: None Intake, IV Amount: 0 Hydration: Adequate
--- NOTE | 2023-06-12 10:37 | PC.NURSE ---
pt unsure of medical history.
--- NOTE | 2023-06-12 12:02 | EXP.SURG.PN ---
Subjective Patient reports: feels better Exam Data for Last 24 hours Vital signs and Labs for Last 24 Hours: Temp Pulse Resp BP Pulse Ox O2 Del Method 98.5 F 78 18 91/63 L 97 Room Air 06/12/23 11:07 06/12/23 11:00 06/12/23 11:00 06/12/23 11:00 06/12/23 11:00 06/12/23 11:00 Laboratory Results - last 24 hr 06/11/23 19:40: WBC 6.7, RBC 5.33, Hgb 16.0, Hct 50.0, MCV 93.9, MCH 30.0, MCHC 31.9, RDW 14.2, Plt Count 107 L, MPV 9.5, Neut % (Auto) 82.3 H, Lymph % (Auto) 12.6, [place] % (Auto) 3.9, Eos % (Auto) 1.0, Baso % (Auto) 0.2, Neut # (Auto) 5.5, Lymph # (Auto) 0.9, [place] # (Auto) 0.3, Eos # (Auto) 0.1, Baso # (Auto) 0.0, Sodium 143, Potassium 3.1 L, Chloride 104, Carbon Dioxide 28, Anion Gap 14.1, BUN 16, Creatinine 0.90, Estimated Creat Clear 76, Estimated GFR 85, Est GFR ( Amer) 102, Glucose 133 H, Lactate 1.5, Calcium 9.2, Total Bilirubin 0.8, AST 41, ALT 35, Alkaline Phosphatase 132 H, Total Protein 7.6, Albumin 4.7, Globulin 2.9, Albumin/Globulin Ratio 1.6 06/12/23 00:00: Urine Color Yellow, Urine Appearance Clear, Urine pH 6.0, Ur Specific Ant[place] 1.020, Urine Protein Trace, Urine Glucose (UA) Negative, Urine Ketones Trace, Urine Blood Trace-i, Urine Nitrate Negative, Urine Bilirubin Negative, Urine Urobilinogen 0.2, Ur Leukocyte Esterase Negative, Urine RBC 5-10, Urine WBC Occasional, Urine Bacteria 1+, Urine Mucus 1+ 06/12/23 02:49: WBC 5.3, RBC 4.91, Hgb 14.5, Hct 47.2, MCV 96.1 H, MCH 29.5, MCHC 30.7 L, RDW 14.2, Plt Count 90 L, MPV 9.2, Neut % (Auto) 86.1 H, Lymph % (Auto) 9.0 L, [place] % (Auto) 3.5, Eos % (Auto) 1.2, Baso % (Auto) 0.1, Neut # (Auto) 4.6, Lymph # (Auto) 0.5 L, [place] # (Auto) 0.2, Eos # (Auto) 0.1, Baso # (Auto) 0.0, Total Counted 100, Neutrophils % (Manual) 84 H, Lymphocytes % (Manual) 13, Monocytes % (Manual) 3, Platelet Estimate Normal, Acanthocytes (Spur) 1+, Sodium 143, Potassium 2.9 L*, Chloride 107, Carbon Dioxide 23, Anion Gap 15.9 H, BUN 17, Creatinine 0.70 D, Estimated Creat Clear 76, Estimated GFR 113, Est GFR ( Amer) 137 D, Glucose 172 H D, Calcium 8.1 L, Magnesium 1.8 06/12/23 07:45: Sodium 143, Potassium 3.1 L, Chloride 108 H, Carbon Dioxide 22, Anion Gap 16.1 H, BUN 16, Creatinine 0.70, Estimated Creat Clear 65, Estimated GFR 113, Est GFR ( Amer) 137, Glucose 136 H D, Calcium 8.2 L 06/12/23 08:20: WBC 8.3 D, RBC 4.73, Hgb 14.2, Hct 43.9, MCV 92.8, MCH 30.1, MCHC 32.4, RDW 14.5, Plt Count 92 L, MPV 9.6, Neut % (Auto) 88.0 H, Lymph % (Auto) 6.3 L, [place] % (Auto) 4.6, Eos % (Auto) 0.9, Baso % (Auto) 0.2, Neut # (Auto) 7.3, Lymph # (Auto) 0.5 L, [place] # (Auto) 0.4, Eos # (Auto) 0.1, Baso # (Auto) 0.0 I & O for Last 24 hours: Intake & Output 06/10/23 06/11/23 06/12/23 06/13/23 11:59 11:59 11:59 11:59 Intake Total 1800 / 1800 Output Total 725 / 725 Balance 1075 / 1075 Weight 138 lb 8.016 oz Constitutional Constitutional: no acute distress *Routine Respiratory Exam Respiratory: Absent respiratory distress *Routine Cardiovascular Exam Cardiovascular: Absent tachycardia *Routine Abdominal Exam Comments: Ileostomy and mucous fistula viable Progress Note: A&P Assessment and plan (1) Transverse colon volvulus: Status: Acute Assessment and plan: Stable status post subtotal colectomy with ileostomy/mucous fistula. Continue nasogastric decompression for now Continue incentive spirometer Begin ambulation (2) Cecal volvulus: Status: Acute (3) History of seizure: Status: Acute
--- NOTE | 2023-06-12 12:06 | CARE MANAGER ---
Addendum entered by [facility] 06/24/23 09:33: Updated patient information has been faxed to Yenni bailey/ [facility]. Addendum entered by [facility] 06/21/23 10:47: Updated patient information has been faxed to Yenni bailey/ [facility]. Discharge date is unknown at this time. Addendum entered by Cecy Gooding 06/18/23 12:30: I have updated Jillian bailey/ Suzanne Cren[facility] regarding this patient. Addendum entered by [facility] 06/17/23 08:08: Updated patient information has been faxed to Yenni bailey/ [facility]. I have also updated Yenni that patient is not medically stable for discharge at this time. Addendum entered by [facility] 06/14/23 11:00: Yenni bailey/ [facility] stated that she can accept this patient SNF level of care. I will update patient, MD and Guardian. Addendum entered by [facility] 06/14/23 08:48: Guardian has called back and approved patient information to be faxed to [facility]: information has been faxed at this time. Addendum entered by [facility] 06/13/23 12:00: I have updated Guardian that I am unable to get [facility]. Guardian stated that she would make contact with State Guardian's in that area and call me back with other facilities. Addendum entered by [facility] 06/12/23 14:49: PT/OT recommended SNF level of care at time of discharge. I called and left a message with Admission Coor at [facility] to return my phone call. Discharge date is unknown at this time. Addendum entered by Mago Card RN 06/12/23 12:18: Evangelina called back to state that the patient's brother, Johann and sister in law, Genny, can have access to information if they call. She states the brother is currently in [facility] which is in [facility] and this is probably where we should look for placement once patient is medically stable. Addendum entered by Mago Card RN 06/12/23 12:10: The number to reach transportation dispatch manager guardianship after hours is [phone] Original Note: Spoke with Evangelina from [facility]. Currently the patient's guardian is on medical leave and so she will be handling his case. Her direct number is [phone]. She states that when he is ready for rehab it is ok to send his information to [facility].
--- NOTE | 2023-06-12 12:23 | PC.NURSE ---
[address] Smith about ambulation status. verbally received from that pt was to start ambulation tomorrow. entered order for pt to ambulate qid. clarified with md: pt to ambulate today, does not have to ambulate in halls, md just wants him moving. per md ok to enter PT/OT order
--- NOTE | 2023-06-12 14:05 | PC.NURSE ---
1330 pt worked with PT at bedside. able to stand with minimal assistance. pt tolerated well.
--- NOTE | 2023-06-12 15:28 | HMH.PTEV ---
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 He resides at a local personal usp and is generally independent with all ADLs and mobility without AD at baseline. Subjective Subjective He reports some pain in the abdomen with mobility, but overall feel much better. Rehab PT IP Eval Objective Appearance Patient Behavior Appropriate Patient Orientation Person,Place Difficulty following instructions none Speech Pattern Clear Ambulation Patient Able to Ambulate No Balance Ability to Arise Able, uses arms to help Sitting Balance Steady, safe Standing Balance Steady, wide stance Dynamic Sitting Balance Ability Good Dynamic Standing Balance Ability Fair Transfers Bed Transfer Ability Minimal x 1 (25% assist) Chair Transfer Ability Minimal x 1 (25% assist) Sit to Stand Bed Transfer Ability Minimal x 1 (25% assist) Sit to Stand Chair Transfer Ability Minimal x 1 (25% assist) ROM All Extremities PT ROM Status WFL MMT All Extremities PT MMT WFL Rehab PT IP prob,goals,plan Problems Date of Evaluation: 06/12/23 PT IP Problems Bed Mobility,Transfers,Gait Rehab Potential Rehab Potential Good Plan PT Intervention Plan Bed Mobility,Transfers,Gait, Self care,Therapeutic Exercise PT Plan Frequency Daily Duration LOS Discharge Goals Bed Transfer Ability Contact Guard/Hand Hold Sit to Stand Chair Transfer Ability Contact Guard/Hand Hold Ambulation Assistive Device None Ambulation Distance (feet) 30 Discharge Plan PT Discharge Plan Pt is currently most appropriate for rehab placement once medically stable for d/c. G -code Required No PHYSICIAN CERTIFICATION: I certify the specified therapy services for Ac Quinonez are required, authorized, and reviewed every 30 days.
[2023-06-12 18:36] LABS: Chloride 108 mmol/L (98-107)
[2023-06-12 18:37] LABS: Potassium 3.7 mmoL/L (3.5-5.1); Sodium 140 mmol/L (136-145)
[2023-06-12 18:39] LABS: Alanine Aminotransferase 36 U/L (12-78); Aspartate Amino Transferase 47 U/L (17-59); Blood Urea Nitrogen 14 mg/dl (9-20); Creatinine Clearance Estimated 65 mL/min (50-200); Estimated Glomerular Filt Rate 113 ml/min (>60); GFR (African American) 137 ML/MIN (>60)
[2023-06-12 18:40] LABS: Albumin/Globulin Ratio 1.3 (1.1-1.8); Alkaline Phosphatase 92 U/L (38-126); Anion Gap 9.7 mEq/L (5-15); Calcium 8.3 mg/dl (8.4-10.2); Carbon Dioxide 26 mmol/L (22.0-30.0); Globulin 2.3 g/dL (1.3-3.2); Glucose 118 mg/dl (74-100); Magnesium 1.9 mg/dl (1.6-2.3); Total Protein,Serum 5.3 g/dl (6.3-8.2)
--- NOTE | 2023-06-12 19:10 | PC.NURSE ---
pt received 10 doses of Morphine from CALL CENTRE SUPERVISOR during this shift. 1899
[2023-06-13] VITALS (11 sets, daily range): BP systolic 83–116; BP diastolic 60–76; PULSE 66–90; RESP 16–21; TEMP 36.4–37.1; O2SAT 90–96; BMI 21.7
--- NOTE | 2023-06-13 05:03 | PC.NURSE ---
Pt has used PROMOTIONAL MARKETING AGENT pump as needed this shift. Pt A&OX4. NG 58 cm at L nare draining dark brown fluid, intermittent low wall suction in place. Colostomy and mucous fistula stomas pink. 50 ml emptied from colostomy bag this shift. Very little output from mucous fistula. Midline incision dressing is CDI. Coto catheter in place draining clear, dark yellow urine. Scds in place to BLE. LR infusing @125 ml/hr. Pt remains on RA and has tolerated well. NSR on telemetry.
[2023-06-13 06:16] LABS: Chloride 108 mmol/L (98-107); Sodium 140 mmol/L (136-145)
[2023-06-13 06:17] LABS: Potassium 3.7 mmoL/L (3.5-5.1)
[2023-06-13 06:19] LABS: Alanine Aminotransferase 31 U/L (12-78); Albumin Level 2.8 g/dl (3.5-5.0); Albumin/Globulin Ratio 1.2 (1.1-1.8); Alkaline Phosphatase 81 U/L (38-126); Anion Gap 9.7 mEq/L (5-15); Aspartate Amino Transferase 38 U/L (17-59); Bilirubin,Total 0.7 mg/dl (0.2-1.3); Blood Urea Nitrogen 15 mg/dl (9-20); Calcium 8.4 mg/dl (8.4-10.2); Carbon Dioxide 26 mmol/L (22.0-30.0); Creatinine Clearance Estimated 69 mL/min (50-200); Estimated Glomerular Filt Rate 97 ml/min (>60); GFR (African American) 117 ML/MIN (>60); Globulin 2.3 g/dL (1.3-3.2); Glucose 97 mg/dl (74-100); Total Protein,Serum 5.1 g/dl (6.3-8.2)
[2023-06-13 06:35] LABS: Basophils % 0.4 % (0.1-2.0); Eosinophils # 0.1 K/mm3 (0.0-0.4); Eosinophils % 0.9 % (0.1-12.0); Hematocrit 41.6 % (42.0-52.0); Hemoglobin 13.3 g/dL (14.1-18.0); Lymphocytes # 0.8 K/mm3 (0.7-4.5); Lymphocytes % 12.8 % (10-50); Mean Corpuscular HGB Conc 31.9 g/dL (31.8-35.4); Mean Corpuscular Hemoglobin 30.1 pg (27.0-31.2); Mean Corpuscular Volume 94.3 fl (80-94); Mean Platelet Volume 9.7 fl (7.4-10.4); Monocytes # 0.4 K/mm3 (0.1-1.0); Monocytes % 5.7 % (1.7-9.3); Neutrophils # 5.2 K/mm3 (1.8-7.8); Neutrophils % 80.2 % (37.0-80.0); Platelet Count 76 K/mm3 (142-424); Red Blood Count 4.42 M/mm3 (4.60-6.20); Red Cell Distribution Width 14.5 % (11.5-17.5); White Blood Count 6.5 K/mm3 (4.8-10.8)
--- NOTE | 2023-06-13 07:44 | P.PN_ITS ---
Subjective Patient reports: feels better Exam Data for Last 24 hours Vital signs and Labs for Last 24 Hours: Temp Pulse Resp BP Pulse Ox O2 Del Method 98.7 F 81 16 89/63 L 91 L Room Air 06/13/23 07:33 06/13/23 06:00 06/13/23 06:00 06/13/23 06:00 06/13/23 06:00 06/13/23 06:54 Laboratory Results - last 24 hr 06/12/23 07:45: Sodium 143, Potassium 3.1 L, Chloride 108 H, Carbon Dioxide 22, Anion Gap 16.1 H, BUN 16, Creatinine 0.70, Estimated Creat Clear 65, Estimated GFR 113, Est GFR ( Amer) 137, Glucose 136 H D, Calcium 8.2 L 06/12/23 08:20: WBC 8.3 D, RBC 4.73, Hgb 14.2, Hct 43.9, MCV 92.8, MCH 30.1, MCHC 32.4, RDW 14.5, Plt Count 92 L, MPV 9.6, Neut % (Auto) 88.0 H, Lymph % (Auto) 6.3 L, [place] % (Auto) 4.6, Eos % (Auto) 0.9, Baso % (Auto) 0.2, Neut # (Auto) 7.3, Lymph # (Auto) 0.5 L, [place] # (Auto) 0.4, Eos # (Auto) 0.1, Baso # (Auto) 0.0 06/12/23 18:05: Sodium 140, Potassium 3.7, Chloride 108 H, Carbon Dioxide 26, Anion Gap 9.7, BUN 14, Creatinine 0.70, Estimated Creat Clear 65, Estimated GFR 113, Est GFR ( Amer) 137, Glucose 118 H, Calcium 8.3 L, Magnesium 1.9, Total Bilirubin 1.0, AST 47, ALT 36, Alkaline Phosphatase 92, Total Protein 5.3 L D, Albumin 3.0 L D, Globulin 2.3, Albumin/Globulin Ratio 1.3 06/13/23 05:44: WBC 6.5, RBC 4.42 L, Hgb 13.3 L, Hct 41.6 L, MCV 94.3 H, MCH 30.1, MCHC 31.9, RDW 14.5, Plt Count 76 L, MPV 9.7, Neut % (Auto) 80.2 H, Lymph % (Auto) 12.8, [place] % (Auto) 5.7, Eos % (Auto) 0.9, Baso % (Auto) 0.4, Neut # (Auto) 5.2, Lymph # (Auto) 0.8, [place] # (Auto) 0.4, Eos # (Auto) 0.1, Baso # (Auto) 0.0, Sodium 140, Potassium 3.7, Chloride 108 H, Carbon Dioxide 26, Anion Gap 9.7, BUN 15, Creatinine 0.80, Estimated Creat Clear 69, Estimated GFR 97, Est GFR ( Amer) 117, Glucose 97, Calcium 8.4, Magnesium 2.0, Total Bilirubin 0.7, AST 38, ALT 31, Alkaline Phosphatase 81, Total Protein 5.1 L, Albumin 2.8 L, Globulin 2.3, Albumin/Globulin Ratio 1.2 I & O for Last 24 hours: Intake & Output 06/10/23 06/11/23 06/12/23 06/13/23 11:59 11:59 11:59 11:59 Intake Total 1800 / 1800 3271 / 3271 Output Total 725 / 725 1575 / 1575 Balance 1075 / 1075 1696 / 1696 Weight 138 lb 8.016 oz 147 lb Constitutional Constitutional: no acute distress *Routine Respiratory Exam Respiratory: Absent respiratory distress *Routine Cardiovascular Exam Cardiovascular: Absent tachycardia *Routine Abdominal Exam Comments: Ileostomy and mucous fistula viable. Small amount of air and fluid in ileostomy bag. Progress Note: A&P Assessment and plan (1) Transverse colon volvulus: Status: Acute Assessment and plan: Overall, doing fairly well status post subtotal colectomy with ileostomy/mucous fistula NG to drain bag Remove Coto Continue to increase ambulation/physical therapy (2) Cecal volvulus: Status: Acute (3) History of seizure: Status: Acute
--- NOTE | 2023-06-13 11:55 | PC.NURSE ---
0820 pt ng tube placed to gravity per md orders.
--- NOTE | 2023-06-13 12:09 | PC.NURSE ---
Pt sister in law called to check on pt. AVA requested via state guardianship that pt be placed in a specific care home near her because that is where his brother currently resides. AVA is Genny Quinonez [phone]
--- NOTE | 2023-06-13 15:13 | EXP.ACUTE.PN ---
Subjective *Date: 06/13/23 *Time: 15:13 Interval history: Patient had some gas from his colostomy today. NG transition to gravity. No nausea or vomiting. Stable on room air. Afebrile overnight. Blood pressure softer this morning on rounds. No jarad bleeding noted. Medical Exam Vital signs and Labs for Last 24 Hours: Vital Signs Temp Pulse Pulse Resp BP Pulse Ox O2 Del Method 06/13/23 08:00 80 06/13/23 12:58 Room Air 06/13/23 12:00 98 F 82 21 88/66 L 90 L Room Air 06/13/23 11:00 Room Air 06/13/23 08:00 82 92 L Room Air 06/13/23 09:00 Room Air 06/13/23 10:00 98.1 F 78 20 90/64 L 91 L Room Air 06/13/23 08:00 82 18 83/60 L 92 L Room Air 06/13/23 07:33 98.7 F 06/13/23 06:54 Room Air 06/13/23 06:00 81 16 89/63 L 91 L Room Air 06/13/23 05:00 Room Air 06/13/23 04:53 92 L Room Air 06/13/23 04:00 80 06/13/23 04:00 98.6 F 82 20 103/72 L 93 L Room Air 06/13/23 03:00 Room Air 06/13/23 02:00 87 20 98/73 L 92 L Room Air 06/13/23 00:00 80 06/12/23 20:00 80 06/13/23 00:30 Room Air 06/13/23 00:00 97.6 F 84 20 88/65 L 96 Room Air 06/12/23 23:00 Room Air 06/12/23 20:00 95 Room Air 06/12/23 22:00 82 20 96/66 L 94 L Room Air 06/12/23 21:00 Room Air 06/12/23 20:00 98.7 F 80 18 94/63 L 96 Room Air 06/12/23 19:00 77 18 89/65 L 94 L Room Air 06/12/23 18:39 Room Air 06/12/23 16:00 70 06/12/23 18:00 73 20 101/61 L 94 L Room Air 06/12/23 17:00 69 18 93/63 L 95 Room Air 06/12/23 16:59 Room Air 06/12/23 16:01 77 18 89/60 L 95 Room Air 06/12/23 15:48 73 95 Room Air Intake and Output 06/12/23 06/13/23 06/13/23 23:59 07:59 15:59 Intake Total 2147 / 4546 1124 / 1174 50 / 1174 Output Total 300 / 2000 825 / 1325 500 / 1325 Balance 1847 / 2546 299 / -151 -450 / -151 Intake: Intake, Oral Amount 0 / 0 Intake, Other Amount 298 / 298 Intake, Total IV Amount 1849 / 2448 1124 / 1174 50 / 1174 KCl 10mEq/100ml 100 ml @ 100 300 / 300 mls/hr IV Q1H [facility] Rx#:[id number] KCl 10mEq/100ml 100 ml @ 100 299 / 299 mls/hr IV Q1H [facility] Rx#:[id number] Lactated Ringers 1000ML 1,000 950 / 1499 1024 / 1024 ml @ 125 mls/hr IV .Q8H [facility] Rx# :[id number] Piperacillin/Tazo 3.375 gm In 0 300 / 350 100 / 150 50 / 150 .9 % Sodium Chloride 50 ml @ 100 mls/hr IV Q6H [facility] Rx#: [id number] Output: Output, Urine Amount 0 / 725 100 / 100 Output, Stool Amount 50 / 50 Output, Urine Amount (Catheter) 425 / 825 400 / 825 Coto 425 / 825 400 / 825 Output, Gastric Drainage Amount 300 / 450 250 / 350 100 / 350 Left Nare 300 / 450 250 / 350 100 / 350 Other: Number of Unmeasured Voids 0 0 Weight 66.678 kg 66.678 kg Patient Weight 06/13/23 23:59 Weight 66.678 kg Laboratory Results - last 24 hr 06/12/23 18:05: Sodium 140, Potassium 3.7, Chloride 108 H, Carbon Dioxide 26, Anion Gap 9.7, BUN 14, Creatinine 0.70, Estimated Creat Clear 65, Estimated GFR 113, Est GFR ( Amer) 137, Glucose 118 H, Calcium 8.3 L, Magnesium 1.9, Total Bilirubin 1.0, AST 47, ALT 36, Alkaline Phosphatase 92, Total Protein 5.3 L D, Albumin 3.0 L D, Globulin 2.3, Albumin/Globulin Ratio 1.3 06/13/23 05:44: WBC 6.5, RBC 4.42 L, Hgb 13.3 L, Hct 41.6 L, MCV 94.3 H, MCH 30.1, MCHC 31.9, RDW 14.5, Plt Count 76 L, MPV 9.7, Neut % (Auto) 80.2 H, Lymph % (Auto) 12.8, [place] % (Auto) 5.7, Eos % (Auto) 0.9, Baso % (Auto) 0.4, Neut # (Auto) 5.2, Lymph # (Auto) 0.8, [place] # (Auto) 0.4, Eos # (Auto) 0.1, Baso # (Auto) 0.0, Sodium 140, Potassium 3.7, Chloride 108 H, Carbon Dioxide 26, Anion Gap 9.7, BUN 15, Creatinine 0.80, Estimated Creat Clear 69, Estimated GFR 97, Est GFR ( Amer) 117, Glucose 97, Calcium 8.4, Magnesium 2.0, Total Bilirubin 0.7, AST 38, ALT 31, Alkaline Phosphatase 81, [place]
--- NOTE | 2023-06-13 16:16 | PC.NURSE ---
Addendum entered by Jessie Gomez RN 06/13/23 16:20: pt voided 250ml of urine Original Note: 1550 pt had not voided since carr was dc this am. when asked, pt denied needing to void. bolus was ordered r/t pt having soft bp. bladder scanner used to assess amount of urine in pt bladder. 303ml of urine was determined to be average of what was in bladder. pt was assisted to standing position at bedside and was able to void in urinal.
--- NOTE | 2023-06-13 16:49 | PC.NURSE ---
[address] Smith that pt ng tube was placed to gravity at 0820. pt denies any n/v or belching at this time. no residual/overflow noted to gravity bag. able to aspirate 20ml stomach contents. pt has been able to tolerate occasional water this shift. per Dr Smith remove pt ng tube at this time. also notified Dr Smith that pt has had unchanged/no new drainage noted to midline incision since he rounded on pt this am. per Dr Smith ok to leave pt dressing in place at this time. but midline dressing and fernanda ostomy appliances to be changed in am tomorrow.
--- NOTE | 2023-06-13 17:36 | PC.NURSE ---
[address] Smith, requested if pt is able to have clear liquids. per dr smith, ok for pt to have limited clear liquids per nursing, no carbonation and no tray. Dr Alba notified of updates in pt orders from Surgery.
--- NOTE | 2023-06-13 17:40 | PC.NURSE ---
1720 ng tube removed at this time. pt tolerated well.
--- NOTE | 2023-06-13 18:44 | PC.NURSE ---
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
--- NOTE | 2023-06-13 18:52 | PC.NURSE ---
Pt has rested in room this shift. he was up to the chair until approx 1200. pt tolerated well. he was able to talk to his sister in law on the phone and appeared to enjoy this. pt has nad at this time. pt is currently sitting up in bed watching tv. pt was able to pull approx 1500ml on the incentive spirometer this evening. this did produce a non productive cough. pt denies any pain that is unrelieved by the BARREL REAMER pump which he used 10 times this shift. pt does have scattered rhonchi that clear with cough. lung sounds are diminished in the bases with faint crackles. bowel sounds are hypo active in all quads. minimal drainage noted from mucous fistula and some gas/air noted from colostomy.
--- NOTE | 2023-06-13 20:42 | PC.NURSE ---
Patient brother called, update provided and spoke to patient.
[2023-06-14] VITALS (10 sets, daily range): BP systolic 108–130; BP diastolic 63–77; PULSE 69–90; RESP 16–19; TEMP 36.7–37; O2SAT 93–97; BMI 21.7
[2023-06-14 05:53] LABS: Basophils % 0.2 % (0.1-2.0); Eosinophils % 0.7 % (0.1-12.0); Hematocrit 38.6 % (42.0-52.0); Hemoglobin 12.1 g/dL (14.1-18.0); Lymphocytes # 0.8 K/mm3 (0.7-4.5); Lymphocytes % 16.9 % (10-50); Mean Corpuscular HGB Conc 31.2 g/dL (31.8-35.4); Mean Corpuscular Hemoglobin 29.7 pg (27.0-31.2); Mean Corpuscular Volume 95.2 fl (80-94); Mean Platelet Volume 9.7 fl (7.4-10.4); Monocytes # 0.2 K/mm3 (0.1-1.0); Monocytes % 4.7 % (1.7-9.3); Neutrophils # 3.7 K/mm3 (1.8-7.8); Neutrophils % 77.5 % (37.0-80.0); Platelet Count 80 K/mm3 (142-424); Red Blood Count 4.06 M/mm3 (4.60-6.20); Red Cell Distribution Width 14.3 % (11.5-17.5); White Blood Count 4.8 K/mm3 (4.8-10.8)
[2023-06-14 06:01] LABS: Chloride 105 mmol/L (98-107); Potassium 3.6 mmoL/L (3.5-5.1); Sodium 135 mmol/L (136-145)
[2023-06-14 06:04] LABS: Alanine Aminotransferase 33 U/L (12-78); Albumin Level 2.5 g/dl (3.5-5.0); Albumin/Globulin Ratio 1.1 (1.1-1.8); Alkaline Phosphatase 73 U/L (38-126); Anion Gap 11.6 mEq/L (5-15); Aspartate Amino Transferase 44 U/L (17-59); Bilirubin,Total 0.7 mg/dl (0.2-1.3); Blood Urea Nitrogen 16 mg/dl (9-20); Calcium 8.2 mg/dl (8.4-10.2); Carbon Dioxide 22 mmol/L (22.0-30.0); Creatinine Clearance Estimated 69 mL/min (50-200); Estimated Glomerular Filt Rate 113 ml/min (>60); GFR (African American) 137 ML/MIN (>60); Globulin 2.3 g/dL (1.3-3.2); Glucose 78 mg/dl (74-100); Total Protein,Serum 4.8 g/dl (6.3-8.2)
[2023-06-14 06:14] LABS: Magnesium 1.8 mg/dl (1.6-2.3)
--- NOTE | 2023-06-14 08:58 | EXP.SURG.PN ---
Subjective Patient reports: no new complaints Narrative: No nausea or emesis since nasogastric tube removed. Per nursing, he has continued to have some air in the bag . Exam Data for Last 24 hours Vital signs and Labs for Last 24 Hours: Temp Pulse Resp BP Pulse Ox O2 Del Method 98.6 F 78 18 129/69 93 L Room Air 06/14/23 07:59 06/14/23 07:59 06/14/23 07:59 06/14/23 07:59 06/14/23 07:59 06/14/23 07:59 Laboratory Results - last 24 hr 06/14/23 05:26: WBC 4.8 D, RBC 4.06 L, Hgb 12.1 L, Hct 38.6 L, MCV 95.2 H, MCH 29.7, MCHC 31.2 L, RDW 14.3, Plt Count 80 L, MPV 9.7, Neut % (Auto) 77.5, Lymph % (Auto) 16.9, [place] % (Auto) 4.7, Eos % (Auto) 0.7, Baso % (Auto) 0.2, Neut # (Auto) 3.7, Lymph # (Auto) 0.8, [place] # (Auto) 0.2, Eos # (Auto) 0.0, Baso # (Auto) 0.0, Sodium 135 L, Potassium 3.6, Chloride 105, Carbon Dioxide 22, Anion Gap 11.6, BUN 16, Creatinine 0.70, Estimated Creat Clear 69, Estimated GFR 113, Est GFR ( Amer) 137, Glucose 78, Calcium 8.2 L, Magnesium 1.8, Total Bilirubin 0.7, AST 44, ALT 33, Alkaline Phosphatase 73, Total Protein 4.8 L, Albumin 2.5 L D, Globulin 2.3, Albumin/Globulin Ratio 1.1 I & O for Last 24 hours: Intake & Output 06/11/23 06/12/23 06/13/23 06/14/23 11:59 11:59 11:59 11:59 Intake Total 1800 / 1800 3321 / 3321 3834 / 3834 Output Total 725 / 725 2075 / 2075 600 / 600 Balance 1075 / 1075 1246 / 1246 3234 / 3234 Weight 138 lb 8.016 oz 147 lb 146 lb 15.997 oz Constitutional Constitutional: no acute distress *Routine Respiratory Exam Respiratory: Absent respiratory distress *Routine Cardiovascular Exam Cardiovascular: Absent tachycardia *Routine Abdominal Exam Abdominal: Present soft and distended (Mild distention in mid/upper abdomen) Comments: Ileostomy pink/viable. Air and small amount of output/succus in bag. Mucous fistula viable. Midline incision without sign of infection. Progress Note: A&P Assessment and plan (1) Transverse colon volvulus: Status: Acute Assessment and plan: Overall, doing well status post subtotal colectomy with ileostomy/mucous fistula Clear liquid diet without carbonation (2) Cecal volvulus: Status: Acute
--- NOTE | 2023-06-14 09:46 | PC.NURSE ---
DSG to Midline incision site changed with MD Smith in room. Ostomy appliances left in place.
--- NOTE | 2023-06-14 10:50 | DIET.NUTRFU ---
Patient NGT removed and diet advanced to clear liquids today. Nursing reported that patient is tolerating diet well. Will provide Boost Breeze with all meals to aid in meeting protein and energy needs. Patient's wt is currently stable at 66kg. Gas and drainage output noted from colostomy. Labs reviewed, albumin 2.5 noted. Patient's urine output remains good, 1525mL noted yesterday. Will continue to monitor patient's nutritional status and intervene as needed.
--- NOTE | 2023-06-14 11:07 | PC.NURSE ---
INSPECTOR PUBLICATIONS DC. Medication wasted via charge nurse. 5 mg of Morphine self administered via INSPECTOR PUBLICATIONS this shift.
--- NOTE | 2023-06-14 11:14 | EXP.ACUTE.PN ---
Subjective *Date: 06/14/23 *Time: 11:14 Interval history: Patient's pain doing somewhat better. Decreased use of BRICK MACHINE OPERATOR pump. No nausea or vomiting. Tolerating limited clears yesterday. Afebrile and hemodynamically stable. Medical Exam Vital signs and Labs for Last 24 Hours: Vital Signs Temp Pulse Pulse Resp BP Pulse Ox O2 Del Method 06/14/23 11:00 Room Air 06/14/23 08:00 Room Air 06/14/23 09:00 Room Air 06/14/23 07:59 98.6 F 78 18 129/69 93 L Room Air 06/14/23 06:20 Room Air 06/14/23 05:00 Room Air 06/14/23 04:00 98.4 F 69 17 119/63 95 Room Air 06/14/23 04:00 80 06/14/23 03:00 Room Air 06/14/23 01:00 Room Air 06/14/23 00:00 98.1 F 86 17 118/67 95 Room Air 06/13/23 20:00 90 06/14/23 00:00 90 06/13/23 23:00 Room Air 06/13/23 21:00 Room Air 06/13/23 20:00 98.1 F 66 17 116/76 93 L Room Air 06/13/23 19:47 Nasal Cannula 06/13/23 12:00 90 06/13/23 18:44 Room Air 06/13/23 17:00 Room Air 06/13/23 16:00 70 06/13/23 16:00 97.8 F 78 19 113/76 96 Room Air 06/13/23 15:50 Room Air 06/13/23 12:58 Room Air 06/13/23 12:00 98 F 82 21 88/66 L 90 L Room Air Intake and Output 06/13/23 06/14/23 06/14/23 23:59 07:59 15:59 Intake Total 3834 / 5008 Output Total 600 / 1925 900 / 900 Balance 3234 / 3083 -900 / -900 Intake: Intake, Oral Amount 380 / 380 Intake, Other Amount 609 / 609 Intake, Total IV Amount 2845 / 4019 Lactated Ringers 1000ML 1,000 1795 / 2819 ml @ 125 mls/hr IV .Q8H [facility] Rx# :[id number] Lactated Ringers 1000ML 1,000 1000 / 1000 ml @ 500 mls/hr IV .Q2H [facility] Rx# :[id number] Piperacillin/Tazo 3.375 gm In 0 50 / 200 .9 % Sodium Chloride 50 ml @ 100 mls/hr IV Q6H [facility] Rx#: [id number] Output: Output, Urine Amount 600 / 700 900 / 900 Other: Number of Voids 0 Number of Bowel Movements 1 Weight 66.678 kg Patient Weight 06/14/23 23:59 Weight 66.678 kg Laboratory Results - last 24 hr 06/14/23 05:26: WBC 4.8 D, RBC 4.06 L, Hgb 12.1 L, Hct 38.6 L, MCV 95.2 H, MCH 29.7, MCHC 31.2 L, RDW 14.3, Plt Count 80 L, MPV 9.7, Neut % (Auto) 77.5, Lymph % (Auto) 16.9, [place] % (Auto) 4.7, Eos % (Auto) 0.7, Baso % (Auto) 0.2, Neut # (Auto) 3.7, Lymph # (Auto) 0.8, [place] # (Auto) 0.2, Eos # (Auto) 0.0, Baso # (Auto) 0.0, Sodium 135 L, Potassium 3.6, Chloride 105, Carbon Dioxide 22, Anion Gap 11.6, BUN 16, Creatinine 0.70, Estimated Creat Clear 69, Estimated GFR 113, Est GFR ( Amer) 137, Glucose 78, Calcium 8.2 L, Magnesium 1.8, Total Bilirubin 0.7, AST 44, ALT 33, Alkaline Phosphatase 73, Total Protein 4.8 L, Albumin 2.5 L D, Globulin 2.3, Albumin/Globulin Ratio 1.1 I & O for Labs for Last 24 Hours: Intake & Output 06/11/23 06/12/23 06/13/23 06/14/23 23:59 23:59 23:59 23:59 Intake Total 3947 / 4546 5008 / 5008 Output Total 1475 / 1999 1925 / 1925 900 / 900 Balance 2472 / 2546 3083 / 3083 -900 / -900 Weight 72.575 kg 62.823 kg 66.678 kg 66.678 kg Constitutional: Present no acute distress, thin and chronically ill appearing Head: Present atraumatic and normocephalic ENT: Present normal exam Comment:: Pterygium bilaterally Neck: Present normal inspection Respiratory: Present normal respiratory effort; Absent rhonchi, wheezes or crackles Cardiac: Present Reg Rate and Rhythm GI: Present soft, tenderness (interval improvement, incision CDI. Ostomy and mucous fistula pink and healthy) and normal bowel sounds; Absent distention Extremities: Present normal inspection and full ROM Skin: Present intact; Absent erythema Neuro: Present Grossly Intact, alert, awake and moves all extremities Assessment and Plan *Assessment and plan (1) Transverse colon volvulus: Status: Acute Category: Medical Code(s): K56.2 - Volvulus (2) Cecal volvulus:
[2023-06-15] VITALS (9 sets, daily range): BP systolic 118–139; BP diastolic 71–96; PULSE 70–98; RESP 16–19; TEMP 36.9–37.4; O2SAT 94–97; BMI 22.6
--- NOTE | 2023-06-15 06:56 | EXP.ACUTE.PN ---
Subjective *Date: 06/15/23 *Time: 08:39 Interval history: Tolerating clear liquid diet. Complaining of some abdominal pain today. No nausea or vomiting. Stable on room air. Remains afebrile. Having output from his ostomy including both gas and liquid output. In bedside chair for meals. Medical Exam Vital signs and Labs for Last 24 Hours: Vital Signs Temp Pulse Pulse Resp BP Pulse Ox O2 Del Method 06/15/23 06:14 Room Air 06/15/23 04:49 Room Air 06/15/23 04:00 80 06/15/23 04:00 99.3 F 77 18 124/82 94 L Room Air 06/15/23 03:00 Room Air 06/15/23 01:00 Room Air 06/15/23 00:00 70 06/14/23 23:00 Room Air 06/14/23 23:51 98.4 F 89 19 130/76 97 Room Air 06/14/23 20:57 Room Air 06/14/23 20:00 80 06/14/23 19:50 Room Air 06/14/23 19:48 98.0 F 82 19 123/77 97 Room Air 06/14/23 18:33 Room Air 06/14/23 17:00 Room Air 06/14/23 12:00 80 06/14/23 16:00 80 06/14/23 16:00 98.5 F 83 16 118/74 93 L Room Air 06/14/23 15:00 Room Air 06/14/23 08:00 80 06/14/23 13:00 Room Air 06/14/23 11:47 98.5 F 79 18 108/73 L 93 L Room Air 06/14/23 11:00 Room Air 06/14/23 08:00 Room Air 06/14/23 09:00 Room Air 06/14/23 07:59 98.6 F 78 18 129/69 93 L Room Air Intake and Output 06/14/23 06/14/23 06/15/23 15:59 23:59 07:59 Intake Total 480 / 3105 2625 / 3105 Output Total 900 / 5 112 / 2024 400 / 400 Balance -420 / 1080 1500 / 1080 -400 / -400 Intake: Intake, Oral Amount 480 / 780 300 / 780 Intake, Total IV Amount 1650 / 1650 Lactated Ringers 1000ML 1,000 1500 / 1500 ml @ 125 mls/hr IV .Q8H [facility] Rx# :[id number] Piperacillin/Tazo 3.375 gm In 0 150 / 150 .9 % Sodium Chloride 50 ml @ 100 mls/hr IV Q6H [facility] Rx#: [id number] Infusion Intake 675 / 675 Lactated Ringers 1000ML 1,000 625 / 625 ml @ 125 mls/hr IV .Q8H [facility] Rx# :[id number] Piperacillin/Tazo 3.375 gm In 0 50 / 50 .9 % Sodium Chloride 50 ml @ 100 mls/hr IV Q6H [facility] Rx#: [id number] Output: Output, Urine Amount 900 / 2025 1125 / 2025 400 / 400 Other: Number of Unmeasured Voids 1 Number of Bowel Movements 1 Weight 69.127 kg Patient Weight 06/15/23 23:59 Weight 69.127 kg I & O for Labs for Last 24 Hours: Intake & Output 06/12/23 06/13/23 06/14/23 06/15/23 23:59 23:59 23:59 23:59 Intake Total 3947 / 4546 5008 / 5008 3105 / 3105 Output Total 1475 / 2000 1925 / 1925 2025 / 5 400 / 400 Balance 2472 / 2546 3083 / 3083 1080 / 1080 -400 / -400 Weight 62.823 kg 66.678 kg 66.678 kg 69.127 kg Constitutional: Present no acute distress, thin and chronically ill appearing Head: Present atraumatic and normocephalic ENT: Present normal exam Comment:: Pterygium bilaterally Neck: Present normal inspection Respiratory: Present normal respiratory effort; Absent rhonchi, wheezes or crackles Cardiac: Present Reg Rate and Rhythm GI: Present soft, tenderness (Mild and diffuse, incision CDI. Ostomy and mucous fistula pink and healthy) and hyperactive bowel sounds; Absent distention Comments:: [place] liquid discharge from ileostomy with gas in bag. Extremities: Present normal inspection and full ROM Skin: Present intact; Absent erythema Neuro: Present Grossly Intact, alert, awake and moves all extremities Assessment and Plan *Assessment and plan (1) Transverse colon volvulus: Status: Acute Category: Medical Code(s): K56.2 - Volvulus (2) Cecal volvulus: Status: Acute Category: Medical Code(s): K56.2 - Volvulus (3) History of seizure: Status: Acute Category: Medical Code(s): Z87.898 - Personal history of other specified conditions (4) Hypokalemia: Status: Acute Category: Medical Code(s): E87.6 - Hypokalemia Evan
[2023-06-15 07:13] LABS: Chloride 105 mmol/L (98-107)
[2023-06-15 07:14] LABS: Potassium 3.7 mmoL/L (3.5-5.1); Sodium 135 mmol/L (136-145)
[2023-06-15 07:16] LABS: Alanine Aminotransferase 30 U/L (12-78); Alkaline Phosphatase 71 U/L (38-126); Aspartate Amino Transferase 36 U/L (17-59); Bilirubin,Total 0.8 mg/dl (0.2-1.3); Blood Urea Nitrogen 14 mg/dl (9-20); Creatinine Clearance Estimated 72 mL/min (50-200); Estimated Glomerular Filt Rate 113 ml/min (>60); GFR (African American) 137 ML/MIN (>60)
[2023-06-15 07:17] LABS: Albumin Level 2.5 g/dl (3.5-5.0); Anion Gap 11.7 mEq/L (5-15); Calcium 7.9 mg/dl (8.4-10.2); Carbon Dioxide 22 mmol/L (22.0-30.0); Globulin 2.4 g/dL (1.3-3.2); Glucose 86 mg/dl (74-100); Total Protein,Serum 4.9 g/dl (6.3-8.2)
[2023-06-15 07:27] LABS: Magnesium 1.8 mg/dl (1.6-2.3)
[2023-06-15 07:31] LABS: Basophils % 0.2 % (0.1-2.0); Eosinophils % 0.9 % (0.1-12.0); Hematocrit 38.6 % (42.0-52.0); Hemoglobin 12.4 g/dL (14.1-18.0); Lymphocytes # 0.6 K/mm3 (0.7-4.5); Lymphocytes % 13.3 % (10-50); Mean Corpuscular Hemoglobin 29.7 pg (27.0-31.2); Mean Corpuscular Volume 92.8 fl (80-94); Mean Platelet Volume 9.6 fl (7.4-10.4); Monocytes # 0.2 K/mm3 (0.1-1.0); Monocytes % 4.6 % (1.7-9.3); Neutrophils # 3.7 K/mm3 (1.8-7.8); Neutrophils % 81.1 % (37.0-80.0); Platelet Count 84 K/mm3 (142-424); Red Blood Count 4.16 M/mm3 (4.60-6.20); Red Cell Distribution Width 14.1 % (11.5-17.5); White Blood Count 4.5 K/mm3 (4.8-10.8)
--- NOTE | 2023-06-15 09:07 | EXP.SURG.PN ---
Subjective Patient reports: no new complaints Narrative: No major complaints. No nausea. Taking clear liquids. Exam Data for Last 24 hours Vital signs and Labs for Last 24 Hours: Temp Pulse Resp BP Pulse Ox O2 Del Method 98.9 F 75 16 139/88 95 Room Air 06/15/23 07:12 06/15/23 08:00 06/15/23 07:12 06/15/23 07:12 06/15/23 07:12 06/15/23 08:00 Laboratory Results - last 24 hr 06/15/23 06:46: WBC 4.5 L, RBC 4.16 L, Hgb 12.4 L, Hct 38.6 L, MCV 92.8, MCH 29.7, MCHC 32.0, RDW 14.1, Plt Count 84 L, MPV 9.6, Neut % (Auto) 81.1 H, Lymph % (Auto) 13.3, [place] % (Auto) 4.6, Eos % (Auto) 0.9, Baso % (Auto) 0.2, Neut # (Auto) 3.7, Lymph # (Auto) 0.6 L, [place] # (Auto) 0.2, Eos # (Auto) 0.0, Baso # (Auto) 0.0, Sodium 135 L, Potassium 3.7, Chloride 105, Carbon Dioxide 22, Anion Gap 11.7, BUN 14, Creatinine 0.70, Estimated Creat Clear 72, Estimated GFR 113, Est GFR ( Amer) 137, Glucose 86, Calcium 7.9 L, Magnesium 1.8, Total Bilirubin 0.8, AST 36, ALT 30, Alkaline Phosphatase 71, Total Protein 4.9 L, Albumin 2.5 L, Globulin 2.4, Albumin/Globulin Ratio 1.0 L I & O for Last 24 hours: Intake & Output 06/12/23 06/13/23 06/14/23 06/15/23 11:59 11:59 11:59 11:59 Intake Total 1800 / 1800 3321 / 3321 3834 / 3834 3645 / 3645 Output Total 725 / 725 2075 / 2075 1500 / 1500 1525 / 1525 Balance 1075 / 1075 1246 / 1246 2334 / 2334 2120 / 2120 Weight 138 lb 8.016 oz 147 lb 146 lb 15.997 oz 152 lb 6.4 oz *Routine Abdominal Exam Comments: Abdomen somewhat distended. Ostomies viable. Liquid and gas from ileostomy. 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
--- NOTE | 2023-06-15 10:58 | EXP.PHA.PN ---
Subjective *Date: 06/15/23 *Time: 10:58 Medical Exam Vital signs and Labs for Last 24 Hours: Vital Signs Temp Pulse Pulse Resp BP Pulse Ox O2 Del Method 06/15/23 09:00 Room Air 06/15/23 08:00 75 06/15/23 08:00 Room Air 06/15/23 07:12 98.9 F 82 16 139/88 95 Room Air 06/15/23 06:14 Room Air 06/15/23 04:49 Room Air 06/15/23 04:00 80 06/15/23 04:00 99.3 F 77 18 124/82 94 L Room Air 06/15/23 03:00 Room Air 06/15/23 01:00 Room Air 06/15/23 00:00 70 06/14/23 23:00 Room Air 06/14/23 23:51 98.4 F 89 19 130/76 97 Room Air 06/14/23 20:57 Room Air 06/14/23 20:00 80 06/14/23 19:50 Room Air 06/14/23 19:48 98.0 F 82 19 123/77 97 Room Air 06/14/23 18:33 Room Air 06/14/23 17:00 Room Air 06/14/23 12:00 80 06/14/23 16:00 80 06/14/23 16:00 98.5 F 83 16 118/74 93 L Room Air 06/14/23 15:00 Room Air 06/14/23 13:00 Room Air 06/14/23 11:47 98.5 F 79 18 108/73 L 93 L Room Air 06/14/23 11:00 Room Air Intake and Output 06/14/23 06/15/23 06/15/23 23:59 07:59 15:59 Intake Total 2625 / 3105 540 / 540 Output Total 1125 / 2025 400 / 400 Balance 1500 / 1080 140 / 140 Intake: Intake, Oral Amount 300 / 780 540 / 540 Intake, Total IV Amount 1650 / 1650 Lactated Ringers 1000ML 1,000 1500 / 1500 ml @ 125 mls/hr IV .Q8H [facility] Rx# :[id number] Piperacillin/Tazo 3.375 gm In 0 150 / 150 .9 % Sodium Chloride 50 ml @ 100 mls/hr IV Q6H [facility] Rx#: [id number] Infusion Intake 675 / 675 Lactated Ringers 1000ML 1,000 625 / 625 ml @ 125 mls/hr IV .Q8H [facility] Rx# :[id number] Piperacillin/Tazo 3.375 gm In 0 50 / 50 .9 % Sodium Chloride 50 ml @ 100 mls/hr IV Q6H [facility] Rx#: [id number] Output: Output, Urine Amount 1124 400 / 400 Other: Number of Unmeasured Voids 1 Number of Bowel Movements 0 Weight 69.127 kg Patient Weight 06/15/23 23:59 Weight 69.127 kg Laboratory Results - last 24 hr 06/15/23 06:46: WBC 4.5 L, RBC 4.16 L, Hgb 12.4 L, Hct 38.6 L, MCV 92.8, MCH 29.7, MCHC 32.0, RDW 14.1, Plt Count 84 L, MPV 9.6, Neut % (Auto) 81.1 H, Lymph % (Auto) 13.3, [place] % (Auto) 4.6, Eos % (Auto) 0.9, Baso % (Auto) 0.2, Neut # (Auto) 3.7, Lymph # (Auto) 0.6 L, [place] # (Auto) 0.2, Eos # (Auto) 0.0, Baso # (Auto) 0.0, Sodium 135 L, Potassium 3.7, Chloride 105, Carbon Dioxide 22, Anion Gap 11.7, BUN 14, Creatinine 0.70, Estimated Creat Clear 72, Estimated GFR 113, Est GFR ( Amer) 137, Glucose 86, Calcium 7.9 L, Magnesium 1.8, Total Bilirubin 0.8, AST 36, ALT 30, Alkaline Phosphatase 71, Total Protein 4.9 L, Albumin 2.5 L, Globulin 2.4, Albumin/Globulin Ratio 1.0 L I & O for Labs for Last 24 Hours: Intake & Output 06/12/23 06/13/23 06/14/23 06/15/23 23:59 23:59 23:59 23:59 Intake Total 3947 / 4546 5008 / 5008 3105 / 3105 540 / 540 Output Total 1475 / 2000 1925 / 1925 2024 400 / 400 Balance 2472 / 2546 3083 / 3083 1080 / 1080 140 / 140 Weight 62.823 kg 66.678 kg 66.678 kg 69.127 kg The patient's infection will respond to the chosen ABx?: Yes Is the patient receiving the right drug, dose, and route?: Yes Could a more targeted ABx be ordered?: No
--- NOTE | 2023-06-15 16:02 | PC.NURSE ---
Pt has been more tired today. Has declined to sit in the chair long but only for meals. Has c/o discomfort to abdomen. Medicated per jan. Midline incision is RAÚL. No drainage noted. Stoma is beefy. Ostomy appliance in place. No leaking noted. 100 ml blood tinged drainage. Mucous fistula with appliance in place. Also no leaking found. 20 ml blood tinged drainage. Education on incentive spirometer provided. Pt has declined to wear Scds this shift. Call light within reach.
[2023-06-16] VITALS (26 sets, daily range): BP systolic 97–145; BP diastolic 70–93; PULSE 78–97; RESP 12–19; TEMP 36.5–36.9; O2SAT 93–98; BMI 22.6
--- NOTE | 2023-06-16 01:31 | CT_ITS ---
PROCEDURE INFORMATION: Exam: CT Abdomen And Pelvis Without Contrast Exam date and time: 06/16/2023 1:48 AM Age: 63 years old Clinical indication: Abdominal pain; Additional info: Abd pain S/P iliostomy/ volvulus TECHNIQUE: Imaging protocol: Computed tomography of the abdomen and pelvis without contrast. Radiation optimization: All CT scans at this facility use at least one of these dose optimization techniques: automated exposure control; mA and/or kV adjustment per patient size (includes targeted exams where dose is matched to clinical indication); or iterative reconstruction. REPORTING DATA: Count of CT and Cardiac NM exams in prior 12 months: This patient has received [address] and 0 known cardiac nuclear medicine studies in the 12 months prior to the current study. COMPARISON: CT ABDOMEN PELVIS W CON 06/11/2023 8:21 PM FINDINGS: Pleural spaces: There are trace bilateral pleural effusions. Liver: Normal. No mass. Gallbladder and bile ducts: Normal. No calcified stones. No ductal dilation. Pancreas: Normal. No ductal dilation. Spleen: There are multiple calcifications in the spleen most likely reflects small granulomas. Adrenal glands: Normal. No mass. Kidneys and ureters: Normal. No hydronephrosis. Stomach and bowel: There is severe gaseous distention of the visualized bowel loops extending to the region proximal to the right lower quadrant ostomy site (100 series 3). Appendix: No evidence of appendicitis. Intraperitoneal space: There is a massive volume of pneumoperitoneum. There is moderate ascites. Vasculature: There is atherosclerotic disease of the visualized aorta and its major branch vessels. Lymph nodes: Unremarkable. No enlarged lymph nodes. Urinary bladder: There is a small locule of air within the urinary bladder. Reproductive: Unremarkable as visualized. Bones/joints: There is diffuse degenerative disease of the visualized osseous structures. Soft tissues: The patient is status post laparotomy. IMPRESSION: 1. There is a massive volume of pneumoperitoneum. 2. There is severe gaseous distention of the visualized bowel loops extending to the region proximal to the right lower quadrant ostomy site (100 series 3).
--- NOTE | 2023-06-16 01:42 | PC.NURSE ---
upon 1am rounds RN noticed some [facility] and patient complained of an upset stomach and had the hic-ups. 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 A stat CT without contract was ordered.
--- NOTE | 2023-06-16 02:59 | XR_ITS ---
PROCEDURE INFORMATION: Exam: XR Abdomen Exam date and time: 06/16/2023 3:18 AM Age: 63 years old Clinical indication: Device placement; Gi device; Nasogastric tube; Additional info: Ng placement TECHNIQUE: Imaging protocol: Radiologic exam of the abdomen. Views: Frontal supine view of the abdomen. 1 View. COMPARISON: CT ABDOMEN PELVIS WO CON 06/16/2023 1:48 AM FINDINGS: Tubes, catheters and devices: An enteric catheter overlies the left upper quadrant. Gastrointestinal tract: There is marked gaseous distention of bowel loops in the abdomen. Severe free intraperitoneal air is again noted in the abdomen. Bones/joints: Unremarkable. IMPRESSION: Enteric catheter in place as described. Persistent marked gaseous distention. Free intraperitoneal air may relate to recent surgery.
--- NOTE | 2023-06-16 03:43 | EXP.SURG.PN ---
Subjective Narrative: Patient had developed onset of acute worsening abdominal pain a couple hours ago. According to nursing staff on examination he was noted to show new onset of significant abdominal distention. The hospitalist ordered a CT scan. This revealed massive volume of pneumoperitoneum and severe gaseous distention of visualized loops of bowel extending to the region of the right lower quadrant ostomy site. This information was relayed to me. Nursing was instructed to place a nasogastric tube and I immediately came in to evaluate the patient. Patient had massive volume of gas and liquid aspirated after nasogastric tube placement. He states that this gave him some relief. Exam Data for Last 24 hours Vital signs and Labs for Last 24 Hours: Temp Pulse Resp BP Pulse Ox O2 Del Method 98.4 F 83 18 121/84 97 Room Air 06/16/23 00:00 06/16/23 00:00 06/16/23 00:00 06/16/23 00:00 06/16/23 00:00 06/16/23 03:00 Laboratory Results - last 24 hr 06/15/23 06:46: WBC 4.5 L, RBC 4.16 L, Hgb 12.4 L, Hct 38.6 L, MCV 92.8, MCH 29.7, MCHC 32.0, RDW 14.1, Plt Count 84 L, MPV 9.6, Neut % (Auto) 81.1 H, Lymph % (Auto) 13.3, [place] % (Auto) 4.6, Eos % (Auto) 0.9, Baso % (Auto) 0.2, Neut # (Auto) 3.7, Lymph # (Auto) 0.6 L, [place] # (Auto) 0.2, Eos # (Auto) 0.0, Baso # (Auto) 0.0, Sodium 135 L, Potassium 3.7, Chloride 105, Carbon Dioxide 22, Anion Gap 11.7, BUN 14, Creatinine 0.70, Estimated Creat Clear 72, Estimated GFR 113, Est GFR ( Amer) 137, Glucose 86, Calcium 7.9 L, Magnesium 1.8, Total Bilirubin 0.8, AST 36, ALT 30, Alkaline Phosphatase 71, Total Protein 4.9 L, Albumin 2.5 L, Globulin 2.4, Albumin/Globulin Ratio 1.0 L I & O for Last 24 hours: Intake & Output 06/13/23 06/14/23 06/15/23/13/23 11:59 11:59 11:59 11:59 Intake Total 3321 / 3321 3834 / 3834 3645 / 3645 940 / 940 Output Total 2074 / 2074 1500 / 1500 1525 / 1995 1070 / 1070 Balance 1246 / 1246 2334 / 2334 2120 / 1650 -130 / -130 Weight 147 lb 146 lb 15.997 oz 152 lb 6.4 oz Microbiology Reports for the Last 24 Hours: Microbiology 06/11/23 23:15 Urine,Catheterized Urine Culture - Preliminary NO GROWTH AFTER 24 HOURS *Routine Abdominal Exam Comments: Abdomen nondistended. Ostomy is viable. 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 He has massive bowel distention and a massive pneumoperitoneum with a moderate amount of ascites. Concern for perforated viscus. Plan will be for emergent reopening of recent laparotomy with possible bowel resection. This is emergent given the concern for bowel viscus perforation and potential for worsening intra-abdominal contamination and peritonitis.
--- NOTE | 2023-06-16 04:01 | PC.NURSE ---
Attempted to call numbers on file no answer
--- NOTE | 2023-06-16 04:26 | PC.NURSE ---
Surgery just came and took patient
--- NOTE | 2023-06-16 04:39 | PC.NURSE ---
Surgery team paged per Dr. Castaneda [phone] Lindsay returned call at [phone] Kyle returned call at [phone] Carlotta returned call at [phone]
--- NOTE | 2023-06-16 07:07 | EXP.OP.NOTE ---
Date of procedure: 06/16/23 Pre-op Diagnosis:: Acute abdomen, massive pneumoperitoneum Post-op Diagnosis:: Same Procedure performed:: Reopening of recent laparotomy with thorough abdominal exploration Surgeon:: Onel Castaneda MD SUPERVISOR DAIRY SANITATION:: Kyle Florentino Anesthesia: GETA Estimated blood loss (mL): 20 Clinical Note:: Patient is a 63-year-old male who is a resident at [facility]. He had presented to the emergency department in the evening of 06/11/2023 with progressive severe abdominal pain and distention. Evaluation in the emergency department revealed findings of volvulus with closed-loop obstruction. Surgery was consulted. Patient was seen and evaluated by Dr. Smith. Given the possibility of sigmoid volvulus he underwent attempted colonoscopic decompression without success. Patient was taken emergently to the operating room in the family therapist hours of 06/12/2023 at which time he underwent laparotomy and was found to have complete volvulus of the transverse colon creating severe right colonic torsion with secondary cecal volvulus. He underwent subtotal colectomy with creation of end ileostomy and descending/sigmoid colon mucous fistula creation. Please see operative dictation for complete details. Nasogastric tube was placed to drain back on postoperative day #1 and removed later that day. On postoperative day #2 patient was started on limited clear liquids. He had ileostomy output of some liquid and gas. On the morning of postoperative day #3 he was having some slight increase in abdominal pain. Diet was judiciously advanced. On 1 AM rounds by nursing staff abdomen was noted to be significantly distended as a change from prior and patient complained of upset stomach . STAMP REDEMPTION CLERK hospitalist was asked to evaluate the patient and ordered CT scan. CT scan revealed massive volume of pneumoperitoneum and severe gaseous distention of the visualized loops of bowel extending to the region of the right lower quadrant ostomy site. This information was relayed to me. Nursing was instructed to place nasogastric tube. Patient was evaluated. He did have a significant amount of volume of gas and liquid aspirated after nasogastric tube placement which gave him some relief. CT scan was reviewed. There were findings of massive bowel distention and massive pneumoperitoneum with moderate amount of ascites. There was concern for possible perforated viscus. Plan was made for emergent reopening of recent laparotomy with possible bowel resection. At this is given emergent status as there is concern for bowel viscus perforation and potential for worsening intra-abdominal contamination and peritonitis. Operative findings:: Patient had findings of severe ileus with significant profound distention of small bowel without mechanical obstruction. He had very distended stomach. The sigmoid colon (defunctionalized) was massively distended but viable. There were a couple of linear serosal tears without definitive evidence of transmural perforation. Evaluation of the posterior stomach and duodenum was difficult given the patient's underlying abnormal anatomy but there was no definite gastric or duodenal perforation. He did have a distended gallbladder. No evidence of cholecystitis Operative note:: Patient was taken emergently to the operating room. He was positioned in supine position. General anesthesia was induced. The ostomy appliances were removed. Abdomen was prepped and draped in the standard surgical fashion. [place] were removed. Fascial sutures were incised and peritoneum was entered. There was a significant amount of fluid present which appeared to be reactive serosanguineous fluid. This was suctioned free. There was noted to be appreciable distention of small bowel and remaining colon, defunctionalized portion, was massively distended. There were a couple of linear serosal tears on the sigmoid colon but no evidence of any transmural perforation.
--- NOTE | 2023-06-16 07:51 | PC.NURSE ---
pt back to [phone] from OR
--- NOTE | 2023-06-16 07:52 | PC.NURSE ---
per telephone order from MD Castaneda, hooked pt's ngt up to lws
[2023-06-16 07:56] LABS: Microscopic,Cath URINE MICROSCOPIC (MICROSCOPIC)
--- NOTE | 2023-06-16 08:05 | PC.NURSE ---
spoke with MD Castaneda, asked if wanted this RN to give prn norco for pain and MD ordered morphine prn (see emar) and instructed this RN to hold am meds that are po as pt is npo with ngt to lws after surgery this am
[2023-06-16 08:12] LABS: Appearance,Urine/Cath CLEAR (Clear); Blood, Urine/Cath Negative (Negative); Color,Urine/Cath YELLOW (Yellow); Glucose,Urine/Cath (UA) Negative (Negative); Ketones,Urine/Cath 2+ (Negative); Leukocyte Esterase,Cath Negative (Negative); Nitrate,Cath Negative (Negative); Protein,Urine/Cath TRACE (Negative); Specific Gravity, Urine/Cath 1.025 (1.005-1.030); Urobilinogen,Cath 0.2 EU/dl (0.2)
[2023-06-16 08:27] LABS: Bacteria,Urine/Cath TRACE /lpf; Bilirubin,Cath 1+ (Negative); Squamous Epithelial Ur./Cath Occasional #/hpf (0-5); WBC,Urine/Cath Occasional #/hpf (0-3)
--- NOTE | 2023-06-16 08:33 | EXP.ACUTE.PN ---
Subjective *Date: 06/16/23 *Time: 13:37 Interval history: Patient distention and discomfort overnight. CT was obtained showing significant gaseous distention of intestines along with ascites and free air within his abdomen. Surgery contacted. Patient taken for laparotomy this morning. Significant fluid drained from abdomen. No jarad perforation or leakage noted. NG replaced, currently n.p.o. with bowel rest. Patient remains afebrile and hemodynamically stable. Medical Exam Vital signs and Labs for Last 24 Hours: Vital Signs Temp Pulse Pulse Resp BP BP Pulse Ox 06/16/23 07:45 86 14 129/85 97 06/16/23 08:15 87 13 139/84 97 06/16/23 08:00 84 14 138/88 96 06/16/23 07:30 81 16 145/93 H 96 06/16/23 07:41 97.7 F 06/16/23 07:35 97.7 F 89 18 130/74 97 06/16/23 07:25 97.7 F 96 H 19 130/78 96 06/16/23 07:15 97.7 F 91 H 17 138/81 96 06/16/23 07:05 97.7 F 97 H 19 139/86 96 06/16/23 04:00 80 06/16/23 00:00 90 06/16/23 04:00 98.2 F 79 19 120/72 96 06/16/23 03:00 06/15/23 20:00 80 06/16/23 01:00 06/16/23 00:00 98.4 F 83 18 121/84 97 06/15/23 23:00 06/15/23 21:00 06/15/23 20:00 06/15/23 20:00 99.2 F 81 19 122/71 95 06/15/23 18:40 06/15/23 12:00 98 H 06/15/23 16:00 77 06/15/23 16:48 06/15/23 15:00 06/15/23 15:31 98.6 F 76 18 132/96 H 97 06/15/23 13:00 06/15/23 10:57 06/15/23 10:24 98.4 F 76 16 118/83 94 L 06/15/23 09:00 O2 Del Method 06/16/23 07:45 Room Air 06/16/23 08:15 Room Air 08/13/23 08:00 Room Air 06/16/23 07:30 Room Air 06/16/23 07:41 06/16/23 07:35 Room Air 06/16/23 07:25 Room Air 06/16/23 07:15 Room Air 06/16/23 07:05 Room Air 06/16/23 04:00 06/16/23 00:00 06/16/23 04:00 Room Air 06/16/23 03:00 Room Air 06/15/23 20:00 06/16/23 01:00 Room Air 06/16/23 00:00 Room Air 06/15/23 23:00 Room Air 06/15/23 21:00 Room Air 06/15/23 20:00 Room Air 06/15/23 20:00 Room Air 06/15/23 18:40 Room Air 06/15/23 12:00 06/15/23 16:00 06/15/23 16:48 Room Air 06/15/23 15:00 Room Air 06/15/23 15:31 Room Air 06/15/23 13:00 Room Air 06/15/23 10:57 Room Air 06/15/23 10:24 Room Air 06/15/23 09:00 Room Air Intake and Output 06/15/23 06/16/23 06/16/23 23:59 07:59 15:59 Intake Total 480 / 1430 100 / 100 Output Total 400 / 1370 1425 / 1425 Balance 80 / 60 -1325 / -1325 Intake: Intake, Oral Amount 480 / 1380 0 / 0 Intake, Total IV Amount 100 / 100 Piperacillin/Tazo 3.375 gm In 0 100 / 100 .9 % Sodium Chloride 50 ml @ 100 mls/hr IV Q6H [facility] Rx#: [id number] Output: Output, Urine Amount 300 / 1050 325 / 325 Output, Gastric Drainage Amount 500 / 500 Right Nare 500 / 500 Output, Drainage Amount 100 / 320 600 / 600 Ostomy 100 / 300 600 / 600 Other: Number of Unmeasured Voids 0 0 Weight 69.218 kg Patient Weight 06/16/23 23:59 Weight 69.218 kg Laboratory Results - last 24 hr 06/16/23 04:55: Urine Color Yellow, Urine Appearance Clear, Urine pH 6.0, Ur Specific [place] 1.025, Urine Protein Trace, Urine Glucose (UA) Negative, Urine Ketones 2+, Urine Blood Negative, Urine Nitrate Negative, Urine Bilirubin 1+ A, Urine Urobilinogen 0.2, Ur Leukocyte Esterase Negative, Urine RBC None, Urine WBC Occasional, Ur Squamous Epith Cells Occasional, Urine Bacteria Trace I & O for Labs for Last 24 Hours: Intake & Output 06/13/23 06/14/23 06/15/23 06/16/23 23:59 23:59 23:59 23:59 Intake Total 5008 / 5008 3105 / 3105 1380 / 1430 100 / 100 Output Total 1925 / 1925 2024 / 2024 1270 / 1370 1425 / 1425 Balance 3083 / 3083 1080 / 1080 110 / 60 -1325 / -1325 Weight 66.678 kg 66.678 kg 69.127 kg 69.218 kg Microbiology Reports for the Last 24 Hours: Microbiology 06/11/23 23:15 Urine,Catheterized
[2023-06-16 08:54] LABS: Alanine Aminotransferase 22 U/L (12-78); Albumin Level 2.7 g/dl (3.5-5.0); Albumin/Globulin Ratio 1.1 (1.1-1.8); Alkaline Phosphatase 70 U/L (38-126); Anion Gap 17.1 mEq/L (5-15); Aspartate Amino Transferase 35 U/L (17-59); Bilirubin,Total 0.7 mg/dl (0.2-1.3); Blood Urea Nitrogen 12 mg/dl (9-20); Calcium 7.8 mg/dl (8.4-10.2); Carbon Dioxide 16 mmol/L (22.0-30.0); Chloride 109 mmol/L (98-107); Creatinine Clearance Estimated 72 mL/min (50-200); Estimated Glomerular Filt Rate 135 ml/min (>60); GFR (African American) 164 ML/MIN (>60); Globulin 2.4 g/dL (1.3-3.2); Glucose 105 mg/dl (74-100); Magnesium 1.9 mg/dl (1.6-2.3); Potassium 4.1 mmoL/L (3.5-5.1); Sodium 138 mmol/L (136-145); Total Protein,Serum 5.1 g/dl (6.3-8.2)
[2023-06-16 09:04] LABS: Basophils % 0.4 % (0.1-2.0); Eosinophils # 0.1 K/mm3 (0.0-0.4); Eosinophils % 0.8 % (0.1-12.0); Hematocrit 52.8 % (42.0-52.0); Hemoglobin 16.6 g/dL (14.1-18.0); Lymphocytes # 0.4 K/mm3 (0.7-4.5); Lymphocytes % 6.5 % (10-50); Mean Corpuscular HGB Conc 31.5 g/dL (31.8-35.4); Mean Corpuscular Hemoglobin 29.9 pg (27.0-31.2); Mean Platelet Volume 9.9 fl (7.4-10.4); Monocytes # 0.3 K/mm3 (0.1-1.0); Monocytes % 4.4 % (1.7-9.3); Neutrophils # 5.4 K/mm3 (1.8-7.8); Platelet Count 130 K/mm3 (142-424); Red Blood Count 5.56 M/mm3 (4.60-6.20); White Blood Count 6.1 K/mm3 (4.8-10.8)
[2023-06-16 09:05] LABS: MANUAL DIFFERENTIAL MANUAL DIFFERENTIAL (MANUAL DIFF)
[2023-06-16 10:48] LABS: Lymphocytes % 5 % (10-50); Monocytes % 7 % (2-9); Neutrophils % 88 % (42-76); Platelet Estimate Slight Decrease; RBC Morphology Normal; Total Cells Counted 100
[2023-06-17] VITALS (18 sets, daily range): BP systolic 90–124; BP diastolic 61–81; PULSE 60–90; RESP 12–16; TEMP 36.9–38.9; O2SAT 94–99; BMI 22.4
--- NOTE | 2023-06-17 06:00 | XR_ITS ---
PROCEDURE INFORMATION: Exam: XR Complete Acute Abdomen Series Including Chest Exam date and time: 06/17/2023 5:24 AM Age: 63 years old Clinical indication: Abdominal pain; Additional info: Volvulus TECHNIQUE: Imaging protocol: Radiologic exam. Complete acute abdomen series, including 2 or more views of the abdomen and a single view chest. COMPARISON: CR XR KUB 06/16/2023 3:18 AM FINDINGS: Tubes, catheters and devices: Nasogastric tube is seen in the stomach. Lungs: Normal. No consolidation. Pleural spaces: Normal. No pleural effusions. No pneumothorax. Heart/Mediastinum: Normal. No cardiomegaly. Gastrointestinal tract: Distended loops of bowel are again visualized not significantly changed from prior. Intraperitoneal space: Pneumoperitoneum is present the patient is status post recent laparotomy. Bones/joints: Normal. No acute fracture. Soft tissues: Normal. IMPRESSION: Pneumoperitoneum with distended loops of bowel unchanged from prior study.
--- NOTE | 2023-06-17 06:19 | EXP.SURG.PN ---
Subjective Narrative: Patient without significant complaints. No issues overnight. Exam Data for Last 24 hours Vital signs and Labs for Last 24 Hours: Temp Pulse Resp BP Pulse Ox O2 Del Method 98.0 F 78 15 118/81 95 Room Air 06/16/23 20:00 06/17/23 04:00 06/17/23 04:00 06/17/23 04:00 06/17/23 04:00 06/17/23 05:00 Laboratory Results - last 24 hr 06/16/23 04:55: Urine Color Yellow, Urine Appearance Clear, Urine pH 6.0, Ur Specific [place] 1.025, Urine Protein Trace, Urine Glucose (UA) Negative, Urine Ketones 2+, Urine Blood Negative, Urine Nitrate Negative, Urine Bilirubin 1+ A, Urine Urobilinogen 0.2, Ur Leukocyte Esterase Negative, Urine RBC None, Urine WBC Occasional, Ur Squamous Epith Cells Occasional, Urine Bacteria Trace 06/16/23 08:34: WBC 6.1 D, RBC 5.56 D, Hgb 16.6, Hct 52.8 H, MCV 95.0 H, MCH 29.9, MCHC 31.5 L, RDW 14.0, Plt Count 130 L D, MPV 9.9, Neut % (Auto) 88.0 H, Lymph % (Auto) 6.5 L, [place] % (Auto) 4.4, Eos % (Auto) 0.8, Baso % (Auto) 0.4, Neut # (Auto) 5.4, Lymph # (Auto) 0.4 L, [place] # (Auto) 0.3, Eos # (Auto) 0.1, Baso # (Auto) 0.0, Total Counted 100, Neutrophils % (Manual) 88 H, Lymphocytes % (Manual) 5 L, Monocytes % (Manual) 7, Platelet Estimate Slight decrease, RBC Morphology Normal, Sodium 138, Potassium 4.1, Chloride 109 H, Carbon Dioxide 16 L, Anion Gap 17.1 H, BUN 12, Creatinine 0.60 L, Estimated Creat Clear 72, Estimated GFR 135, Est GFR ( Amer) 164, Glucose 105 H, Calcium 7.8 L, Magnesium 1.9, Total Bilirubin 0.7, AST 35, ALT 22 D, Alkaline Phosphatase 70, Total Protein 5.1 L, Albumin 2.7 L, Globulin 2.4, Albumin/Globulin Ratio 1.1 I & O for Last 24 hours: Intake & Output 06/14/23 06/15/23 06/16/23 06/17/23 11:59 11:59 11:59 11:59 Intake Total 3834 / 3834 3645 / 3645 940 / 940 100 / 100 Output Total 1500 / 1500 1525 / 1995 2295 / 2295 600 / 600 Balance 2334 / 2334 2120 / 1650 -1355 / -1355 -500 / -500 Weight 146 lb 15.997 oz 152 lb 6.4 oz 152 lb 9.6 oz Microbiology Reports for the Last 24 Hours: Microbiology 06/11/23 23:15 Urine,Catheterized Urine Culture - Final NO GROWTH AFTER 48 HOURS *Routine Abdominal Exam Abdominal: Present tenderness and ostomy Comments: Abdomen less distended but still with some tenderness. Ostomy is viable without significant output. 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 Continue nasogastric decompression at this time with close monitoring.
[2023-06-17 06:21] LABS: Basophils % 0.3 % (0.1-2.0); Eosinophils % 0.5 % (0.1-12.0); Hematocrit 45.2 % (42.0-52.0); Lymphocytes % 14.9 % (10-50); Mean Corpuscular HGB Conc 30.8 g/dL (31.8-35.4); Mean Corpuscular Hemoglobin 28.8 pg (27.0-31.2); Mean Corpuscular Volume 93.6 fl (80-94); Mean Platelet Volume 9.6 fl (7.4-10.4); Monocytes # 0.6 K/mm3 (0.1-1.0); Monocytes % 8.6 % (1.7-9.3); Neutrophils # 4.9 K/mm3 (1.8-7.8); Neutrophils % 75.9 % (37.0-80.0); Platelet Count 152 K/mm3 (142-424); Red Blood Count 4.83 M/mm3 (4.60-6.20); White Blood Count 6.4 K/mm3 (4.8-10.8)
[2023-06-17 06:26] LABS: Alanine Aminotransferase 33 U/L (12-78); Albumin Level 2.6 g/dl (3.5-5.0); Albumin/Globulin Ratio 1.1 (1.1-1.8); Alkaline Phosphatase 64 U/L (38-126); Anion Gap 13.2 mEq/L (5-15); Aspartate Amino Transferase 60 U/L (17-59); Bilirubin,Total 0.6 mg/dl (0.2-1.3); Blood Urea Nitrogen 15 mg/dl (9-20); Calcium 7.8 mg/dl (8.4-10.2); Carbon Dioxide 22 mmol/L (22.0-30.0); Chloride 108 mmol/L (98-107); Creatinine Clearance Estimated 72 mL/min (50-200); Estimated Glomerular Filt Rate 97 ml/min (>60); GFR (African American) 117 ML/MIN (>60); Globulin 2.4 g/dL (1.3-3.2); Glucose 107 mg/dl (74-100); Potassium 4.2 mmoL/L (3.5-5.1); Sodium 139 mmol/L (136-145)
[2023-06-17 06:33] LABS: Magnesium 1.9 mg/dl (1.6-2.3)
--- NOTE | 2023-06-17 07:27 | EXP.ACUTE.PN ---
Subjective *Date: 06/17/23 *Time: 10:16 Interval history: Pain stable, continues to have abdominal pain. Denies any nausea or vomiting. States he has had minimal output from his ostomy. Stable on room air. No seizure activity. Medical Exam Vital signs and Labs for Last 24 Hours: Vital Signs Temp Pulse Pulse Pulse Resp BP Pulse Ox 06/17/23 06:00 77 15 119/78 98 06/17/23 04:00 90 06/17/23 04:00 78 15 118/81 95 06/17/23 02:00 78 16 122/81 97 06/17/23 04:00 06/17/23 05:00 06/16/23 23:00 06/17/23 00:00 83 15 124/79 94 L 06/16/23 08:00 90 06/16/23 20:00 78 15 107/70 L 96 06/17/23 03:00 06/17/23 01:00 06/16/23 22:00 85 16 108/73 L 98 06/17/23 00:00 80 06/16/23 21:00 06/16/23 20:00 06/16/23 20:00 98.0 F 06/16/23 18:11 06/16/23 18:00 86 16 106/73 L 94 L 06/16/23 16:00 85 12 107/72 L 95 06/16/23 17:00 06/16/23 16:00 80 06/16/23 12:00 90 06/16/23 15:09 98.5 F 06/16/23 13:00 06/16/23 11:00 06/16/23 14:15 91 H 15 97/75 L 94 L 06/16/23 13:15 91 H 100/74 L 93 L 06/16/23 12:15 88 115/79 93 L 06/16/23 11:15 89 112/79 95 06/16/23 10:59 97.8 F 06/16/23 08:00 85 06/16/23 10:15 88 14 116/80 94 L 06/16/23 09:45 88 13 117/76 95 06/16/23 09:15 86 14 118/75 96 06/16/23 07:45 86 14 129/85 97 06/16/23 08:45 86 14 125/81 96 06/16/23 08:46 06/16/23 08:00 96 06/16/23 08:15 87 13 139/84 97 06/16/23 08:00 84 14 138/88 96 06/16/23 07:30 81 16 145/93 H 96 06/16/23 07:41 97.7 F 06/16/23 07:35 97.7 F 89 18 130/74 97 O2 Del Method 06/17/23 06:00 Room Air 06/17/23 04:00 06/17/23 04:00 Room Air 06/17/23 02:00 Room Air 06/17/23 04:00 Room Air 06/17/23 05:00 Room Air 06/16/23 23:00 Room Air 06/17/23 00:00 Room Air 06/16/23 08:00 06/16/23 20:00 Room Air 06/17/23 03:00 Room Air 06/17/23 01:00 Room Air 06/16/23 22:00 Room Air 06/17/23 00:00 06/16/23 21:00 Room Air 06/16/23 20:00 Room Air 06/16/23 20:00 06/16/23 18:11 Room Air 06/16/23 18:00 Room Air 06/16/23 16:00 Room Air 06/16/23 17:00 Room Air 06/16/23 16:00 06/16/23 12:00 06/16/23 15:09 06/16/23 13:00 Room Air 06/16/23 11:00 Room Air 06/16/23 14:15 Room Air 06/16/23 13:15 Room Air 06/16/23 12:15 Room Air 06/16/23 11:15 Room Air 06/16/23 10:59 06/16/23 08:00 06/16/23 10:15 Room Air 06/16/23 09:45 Room Air 06/16/23 09:15 Room Air 06/16/23 07:45 Room Air 06/16/23 08:45 Room Air 06/16/23 08:46 Room Air 06/16/23 08:00 Room Air 06/16/23 08:15 Room Air 06/16/23 08:00 Room Air 06/16/23 07:30 Room Air 06/16/23 07:41 06/16/23 07:35 Room Air Intake and Output 06/16/23 06/16/23 06/17/23 15:59 23:59 07:59 Intake Total 0 / 200 100 / 200 Output Total 125 5 475 / 2024 700 / 700 Balance -125 / -1825 -375 / -1825 -700 / -700 Intake: Intake, Oral Amount 0 / 0 Intake, Total IV Amount 100 / 200 Piperacillin/Tazo 3.375 gm In 0 100 / 200 .9 % Sodium Chloride 50 ml @ 100 mls/hr IV Q6H [facility] Rx#: [id number] Output: Output, Urine Amount 0 / 325 0 / 325 700 / 700 Output, Urine Amount (Catheter) 125 / 300 175 / 300 [place] 125 / 300 175 / 300 Output, Gastric Drainage Amount 300 / 800 Right Nare 300 / 800 Output, Drainage Amount 0 / 600 Ostomy 0 / 600 Other: Number of Unmeasured Voids 0 0 Weight 68.719 kg Patient Weight 06/17/23 23:59 Weight 68.719 kg Laboratory Results - last 24 hr 06/16/23 04:55: Urine Color Yellow, Urine Appearance Clear, Urine pH 6.0, Ur Specific [place] 1.025, Urine Protein Trace, Urine Glucose (UA) Negative, Urine Ketones 2+, Urine Blood Negative, Urine Nitrate Negative, Urine Bilirubin
--- NOTE | 2023-06-17 07:58 | PC.NURSE ---
notified MD Alba that pt has temp of 102, instructed to give tylenolMD to order
--- NOTE | 2023-06-17 11:00 | DIET.NUTRFU ---
Patient reviewed in rounds today, he now triggers for PCM due to unable to advance diet and nutrition prior to admit. Patient had to undergo sx again and is now NPO. He does have active BS. Patient was clear liquids x2 meals on 06/14, Full liquids x1 meal on 06/15, otherwise has been NPO since admit late on 06/11. If continues NPO may need to consider TPN to better meet nutritional needs. Reviewed that with provider today. Labs reviewed albumin slightly up at 2.6L. He received lactated ringers yesterday. Last BM 06/14 prior to secondary sx. Wt is up at 68kg, admit wt 62kg, possible increase due to IVF received. No hx of CHF, but was on lasix prior to admit, will continue to monitor weights.
[2023-06-18] VITALS (13 sets, daily range): BP systolic 87–106; BP diastolic 57–72; PULSE 70–80; RESP 14–18; TEMP 36.3–37.1; O2SAT 93–99; BMI 20.8
[2023-06-18 06:39] LABS: Basophils % 0.4 % (0.1-2.0); Eosinophils % 0.8 % (0.1-12.0); Hematocrit 42.1 % (42.0-52.0); Lymphocytes # 0.8 K/mm3 (0.7-4.5); Lymphocytes % 15.8 % (10-50); Mean Corpuscular Hemoglobin 29.4 pg (27.0-31.2); Mean Platelet Volume 9.4 fl (7.4-10.4); Monocytes # 0.3 K/mm3 (0.1-1.0); Monocytes % 6.3 % (1.7-9.3); Neutrophils # 3.7 K/mm3 (1.8-7.8); Neutrophils % 76.9 % (37.0-80.0); Platelet Count 130 K/mm3 (142-424); Red Blood Count 4.43 M/mm3 (4.60-6.20); Red Cell Distribution Width 14.2 % (11.5-17.5); White Blood Count 4.8 K/mm3 (4.8-10.8)
[2023-06-18 06:46] LABS: Alanine Aminotransferase 33 U/L (12-78); Albumin Level 2.3 g/dl (3.5-5.0); Alkaline Phosphatase 61 U/L (38-126); Anion Gap 12.8 mEq/L (5-15); Aspartate Amino Transferase 62 U/L (17-59); Bilirubin,Total 0.4 mg/dl (0.2-1.3); Blood Urea Nitrogen 16 mg/dl (9-20); Calcium 7.5 mg/dl (8.4-10.2); Carbon Dioxide 23 mmol/L (22.0-30.0); Chloride 108 mmol/L (98-107); Creatinine Clearance Estimated 66 mL/min (50-200); Estimated Glomerular Filt Rate 135 ml/min (>60); GFR (African American) 164 ML/MIN (>60); Globulin 2.2 g/dL (1.3-3.2); Glucose 83 mg/dl (74-100); Potassium 3.8 mmoL/L (3.5-5.1); Sodium 140 mmol/L (136-145); Total Protein,Serum 4.5 g/dl (6.3-8.2)
--- NOTE | 2023-06-18 06:55 | EXP.SURG.PN ---
Subjective Patient reports: no new complaints Narrative: He states that he feels okay . Exam Data for Last 24 hours Vital signs and Labs for Last 24 Hours: Temp Pulse Resp BP Pulse Ox O2 Del Method 97.9 F 73 16 100/66 L 95 Room Air 06/18/23 06:00 06/18/23 06:00 06/18/23 06:00 06/18/23 06:00 06/18/23 06:00 06/18/23 06:44 Laboratory Results - last 24 hr 06/18/23 05:25: WBC 4.8, RBC 4.43 L, Hgb 13.0 L, Hct 42.1, MCV 95.0 H, MCH 29.4, MCHC 31.0 L, RDW 14.2, Plt Count 130 L, MPV 9.4, Neut % (Auto) 76.9, Lymph % (Auto) 15.8, [place] % (Auto) 6.3, Eos % (Auto) 0.8, Baso % (Auto) 0.4, Neut # (Auto) 3.7, Lymph # (Auto) 0.8, [place] # (Auto) 0.3, Eos # (Auto) 0.0, Baso # (Auto) 0.0, Sodium 140, Potassium 3.8, Chloride 108 H, Carbon Dioxide 23, Anion Gap 12.8, BUN 16, Creatinine 0.60 L D, Estimated Creat Clear 66, Estimated GFR 135, Est GFR ( Amer) 164 D, Glucose 83 D, Calcium 7.5 L, Total Bilirubin 0.4, AST 62 H, ALT 33, Alkaline Phosphatase 61, Total Protein 4.5 L, Albumin 2.3 L D, Globulin 2.2, Albumin/Globulin Ratio 1.0 L I & O for Last 24 hours: Intake & Output 06/15/23 06/16/23 06/17/23 06/18/23 11:59 11:59 11:59 11:59 Intake Total 3645 / 3645 940 / 940 100 / 100 600 / 600 Output Total 152 / 1994 2295 / 2295 1300 / 1300 675 / 675 Balance 2120 / 1650 -1355 / -1355 -1200 / -1200 -75 / -75 Weight 152 lb 6.4 oz 152 lb 9.6 oz 151 lb 8 oz 140 lb 9.6 oz Constitutional Constitutional: no acute distress *Routine Respiratory Exam Respiratory: Absent respiratory distress *Routine Cardiovascular Exam Cardiovascular: Absent tachycardia *Routine Abdominal Exam Abdominal: Present soft Comments: Moderate epigastric distention. Fairly large volume of fluid within ostomy bag. Progress Note: A&P Assessment and plan (1) Transverse colon volvulus: Status: Acute Assessment and plan: Stable POD6 s/p subtotal colectomy and POD2 s/p re-exploration for suspected massive free air and increasing distention/pain. No definitive evidence of obvious injury or other complication noted upon re-exploration. He continues to have output via ostomy. Moderate distention remains. Contrast study via NG tube to assess for possible leak not seen during re-exploration. (2) Cecal volvulus: Status: Acute (3) History of seizure: Status: Acute (4) Hypokalemia: Status: Acute
--- NOTE | 2023-06-18 07:00 | FL_ITS ---
FINAL REPORT CLINICAL HISTORY: possible perf, FT 2:22 FINDINGS: UPPER GI EXAM HISTORY: Abdominal pain, nausea. PROCEDURE: . Gastrografin contrastt was placed through the patient's nasogastric tube. Spot and overhead films were obtained. FINDINGS: There is no gastroesophageal reflux. Peristalsis is normal. The rugal fold pattern of the stomach appears edematous. There is no extravasation of contrast identified but the study is limited secondary to marked dilatation of small bowel loops. There is narrowing of the proximal duodenum which may be secondary to edema but narrowing secondary to malignancy cannot be excluded. FLUOROSCOPY TIME: 2.22 minutes IMPRESSION: 1. Edematous appearance of the stomach. 2. Narrowing of the proximal duodenum may be secondary to edema but endoscopic correlation is recommended. 3. No extravasationof contrast is identified but the study is limited secondary to marked gaseous distention in overlapping bowel loops. A CT with oral contrast may better assess for small perforation. Films reviewed , interpreted and dictated by Dr. Nguyen Transcribed by Kyle López PA-C. Reviewed, Interpreted and Dictated by Onel Nguyen III, MD Transcribed by ARTHUR Chavez Authenticated and [facility]
--- NOTE | 2023-06-18 12:01 | CT_ITS ---
FINAL REPORT TECHNIQUE: Axial images through the abdomen and pelvis were performed without contrast. Oral contrast was given. This study was performed with techniques to keep radiation doses as low as reasonably achievable, (ALARA). Individualized dose reduction techniques using automated exposure control or adjustment of mA and/or kV according to the patient's size were employed. CLINICAL HISTORY: ? small perforation (not seen on UGI) COMPARISON: 06/16/2023 FINDINGS: ABDOMEN: There is mild bibasilar atelectasis and small left effusion. The heart size is normal. Limited images of the liver are unremarkable. The spleen is normal. No adrenal mass is identified. The aorta is normal in caliber. There is no significant adenopathy. There is no nephrolithiasis. There is no hydronephrosis. There is a large amount of ascites. There is a large amount of pneumoperitoneum, worse than previous. There are multiple distended bowel loops. Moderate anasarca is identified. There is wall thickening of multiple bowel loops. PELVIS: Bilateral pelvic ostomies are noted. The appendix is not identified. There is a [place] catheter. There is no significant adenopathy. IMPRESSION: Large amount of pneumoperitoneum, worse than previous. Large ascites. Reviewed, Interpreted and Dictated by Onel Nguyen III, MD Transcribed by Neha Zheng Authenticated and [facility]
--- NOTE | 2023-06-18 12:36 | EXP.PN ---
Subjective *Date: 06/18/23 *Time: 12:36 Interval history: No acute events overnight. He continues to have output from his ileostomy. He denies pain. Exam Data for Last 24 hours Vital signs and Labs for Last 24 Hours: Temp Pulse Resp BP Pulse Ox O2 Del Method 98.3 F 77 18 95/64 L 99 Room Air 06/18/23 11:11 06/18/23 10:00 06/18/23 10:00 06/18/23 10:00 06/18/23 10:00 06/18/23 11:00 Laboratory Results - last 24 hr 06/18/23 05:25: WBC 4.8, RBC 4.43 L, Hgb 13.0 L, Hct 42.1, MCV 95.0 H, MCH 29.4, MCHC 31.0 L, RDW 14.2, Plt Count 130 L, MPV 9.4, Neut % (Auto) 76.9, Lymph % (Auto) 15.8, [place] % (Auto) 6.3, Eos % (Auto) 0.8, Baso % (Auto) 0.4, Neut # (Auto) 3.7, Lymph # (Auto) 0.8, [place] # (Auto) 0.3, Eos # (Auto) 0.0, Baso # (Auto) 0.0, Sodium 140, Potassium 3.8, Chloride 108 H, Carbon Dioxide 23, Anion Gap 12.8, BUN 16, Creatinine 0.60 L D, Estimated Creat Clear 66, Estimated GFR 135, Est GFR ( Amer) 164 D, Glucose 83 D, Calcium 7.5 L, Magnesium 2.0, Total Bilirubin 0.4, AST 62 H, ALT 33, Alkaline Phosphatase 61, Total Protein 4.5 L, Albumin 2.3 L D, Globulin 2.2, Albumin/Globulin Ratio 1.0 L I & O for Last 24 hours: Intake & Output 06/15/23 06/16/23 06/17/23 06/18/23 23:59 23:59 23:59 23:59 Intake Total 1380 / 1430 200 / 200 600 / 600 0 / 0 Output Total 1270 / 1370 2024 / 2024 1225 / 1225 150 / 150 Balance 110 / 60 -1825 / -1825 -625 / -625 -150 / -150 Weight 69.127 kg 69.218 kg 68.719 kg 63.775 kg Constitutional Constitutional: no acute distress *Routine HEENT Exam Head: Present normocephalic Eye: Present EOMI and PERRL ENT: Present mucous membranes moist *Routine Neck Exam Neck: Present supple; Absent lymphadenopathy *Routine Respiratory Exam Respiratory: Present CTA bilaterally *Routine Cardiovascular Exam Cardiovascular: Present RRR *Routine Abdominal Exam Abdominal: Present soft and tenderness; Absent rebound *Routine Extremities Exam Extremities: Absent cyanosis, clubbing or edema *Routine Skin Exam Skin: Present warm; Absent rash *Routine Neurological Exam Neurological: Present alert and moving all extremities Assessment and Plan *Assessment and plan (1) Transverse colon volvulus: Status: Acute Category: Medical Code(s): K56.2 - Volvulus (2) Cecal volvulus: Status: Acute Category: Medical Code(s): K56.2 - Volvulus (3) History of seizure: Status: Acute Category: Medical Code(s): Z87.898 - Personal history of other specified conditions (4) Hypokalemia: Status: Acute Category: Medical Code(s): E87.6 - Hypokalemia Plan 63 year old male presented to the ED from [place] for c/o abd pain, bloating, constipation for the last two weeks. The ED workup revealed hypokalemia and a massively distended colon with swirl sign suggesting a sigmoid volvulus. The pt arrived to the medical floor hemodynamically stable s/p laparotomy with 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 Status post repeat exploratory laparotomy yesterday morning 06/16. 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 Continue NG to intermittent low wall suction. N.p.o. at this time. Distention improved - encourage ambulation - IV morphine 2 mg every 2 hours as needed, monitor for toxicity. - Zofran 4 mg as needed every 6-8 hours for nausea. Protonix PPI 40 mg daily -Maintenance IV fluid -Zosyn 3.375 gm Q 6 hr for empiric coverage. White cell count remains normal at 6.4. Repeat CBC in the morning ordered. -Tylenol 650 mg every 4-6 hours as needed for fever or pain. -General Surgery ordered an gastrografin study which revealed no extravasation of contrast but the study is limited secondary to marked gaseous distension in overlapping bowel loops. HX OF SEIZURE -Continue phenobarbital 129.6 mg nightly, zonisamide 100 mg twice daily, and lacosamide 400 mg twice amsoud
--- NOTE | 2023-06-18 12:54 | PC.NURSE ---
[address] Smith via phone. notified him that ct order needed to be modified according to radiology. pt is to only have oral contrast via ng tube, not IV contrast. per Dr Smith, ok to modify order 1249 ok to transfer pt out of stepdown
--- NOTE | 2023-06-18 17:32 | PC.NURSE ---
received report from michael diez. patient has done okay this shift. changed dressing to midline and ileostomy twice this shift. had large amount of liquid from stoma with some chunks noted. green in color. some irritation from tape around the stoma noted. rings out as needed. no complaints this shift.
[2023-06-19] VITALS (10 sets, daily range): BP systolic 95–105; BP diastolic 61–70; PULSE 67–80; RESP 15–19; TEMP 36.8–37.2; O2SAT 93–100; BMI 21.2
[2023-06-19 06:08] LABS: Basophils % 0.3 % (0.1-2.0); Eosinophils % 0.7 % (0.1-12.0); Hematocrit 40.4 % (42.0-52.0); Hemoglobin 13.2 g/dL (14.1-18.0); Lymphocytes # 0.8 K/mm3 (0.7-4.5); Lymphocytes % 17.8 % (10-50); Mean Corpuscular HGB Conc 32.8 g/dL (31.8-35.4); Mean Corpuscular Hemoglobin 30.5 pg (27.0-31.2); Mean Platelet Volume 9.5 fl (7.4-10.4); Monocytes # 0.2 K/mm3 (0.1-1.0); Monocytes % 4.6 % (1.7-9.3); Neutrophils # 3.3 K/mm3 (1.8-7.8); Neutrophils % 76.8 % (37.0-80.0); Platelet Count 152 K/mm3 (142-424); Red Blood Count 4.34 M/mm3 (4.60-6.20); Red Cell Distribution Width 14.3 % (11.5-17.5); White Blood Count 4.3 K/mm3 (4.8-10.8)
[2023-06-19 06:26] LABS: Chloride 108 mmol/L (98-107); Potassium 3.7 mmoL/L (3.5-5.1); Sodium 140 mmol/L (136-145)
[2023-06-19 06:29] LABS: Alanine Aminotransferase 43 U/L (12-78); Albumin Level 2.3 g/dl (3.5-5.0); Alkaline Phosphatase 74 U/L (38-126); Anion Gap 15.7 mEq/L (5-15); Aspartate Amino Transferase 82 U/L (17-59); Bilirubin,Total 0.5 mg/dl (0.2-1.3); Blood Urea Nitrogen 15 mg/dl (9-20); Carbon Dioxide 20 mmol/L (22.0-30.0); Creatinine Clearance Estimated 68 mL/min (50-200); Estimated Glomerular Filt Rate 135 ml/min (>60); GFR (African American) 164 ML/MIN (>60); Globulin 2.3 g/dL (1.3-3.2); Glucose 83 mg/dl (74-100); Total Protein,Serum 4.6 g/dl (6.3-8.2)
[2023-06-19 06:30] LABS: Phosphorous 2.6 mg/dl (2.5-4.5)
--- NOTE | 2023-06-19 07:45 | EXP.SURG.PN ---
Subjective Patient reports: no new complaints, still having pain and pain is less Narrative: No nausea Exam Data for Last 24 hours Vital signs and Labs for Last 24 Hours: Temp Pulse Resp BP Pulse Ox O2 Del Method 98.3 F 67 16 103/69 L 96 Room Air 06/19/23 04:00 06/19/23 04:00 06/19/23 04:00 06/19/23 04:00 06/19/23 04:00 06/19/23 07:00 Laboratory Results - last 24 hr 06/19/23 05:33: WBC 4.3 L, RBC 4.34 L, Hgb 13.2 L, Hct 40.4 L, MCV 93.0, MCH 30.5, MCHC 32.8, RDW 14.3, Plt Count 152, MPV 9.5, Neut % (Auto) 76.8, Lymph % (Auto) 17.8, [place] % (Auto) 4.6, Eos % (Auto) 0.7, Baso % (Auto) 0.3, Neut # (Auto) 3.3, Lymph # (Auto) 0.8, [place] # (Auto) 0.2, Eos # (Auto) 0.0, Baso # (Auto) 0.0, Sodium 140, Potassium 3.7, Chloride 108 H, Carbon Dioxide 20 L, Anion Gap 15.7 H, BUN 15, Creatinine 0.60 L, Estimated Creat Clear 68, Estimated GFR 135, Est GFR ( Amer) 164, Glucose 83, Calcium 8.0 L, Phosphorus 2.6, Total Bilirubin 0.5, AST 82 H D, ALT 43 D, Alkaline Phosphatase 74, Total Protein 4.6 L, Albumin 2.3 L, Globulin 2.3, Albumin/Globulin Ratio 1.0 L I & O for Last 24 hours: Intake & Output 06/16/23 06/17/23 06/18/23 06/19/23 11:59 11:59 11:59 11:59 Intake Total 940 / 940 100 / 100 600 / 600 100 / 100 Output Total 2295 / 2295 1300 / 1300 675 / 675 2049 Balance -1355 / -1355 -1200 / -1200 -75 / -75 -1950 / -1950 Weight 152 lb 9.6 oz 151 lb 8 oz 140 lb 9.6 oz 143 lb Radiology Reports for the Last 24 Hours: UGI (06/18/23)- IMPRESSION: 1. Edematous appearance of the stomach. 2. Narrowing of the proximal duodenum may be secondary to edema but endoscopic correlation is recommended. 3. No extravasationof contrast is identified but the study is limited secondary to marked gaseous distention in overlapping bowel loops. A CT with oral contrast may better assess for small perforation CT A/P (06/18/23)- IMPRESSION: Large amount of pneumoperitoneum, worse than previous. Large ascites. Constitutional Constitutional: no acute distress *Routine Respiratory Exam Respiratory: Absent respiratory distress *Routine Cardiovascular Exam Cardiovascular: Absent tachycardia *Routine Abdominal Exam Abdominal: Present soft and distended (Unchanged distention most prominent in epigastric region) Comments: Air and fluid in ostomy bag Progress Note: A&P Assessment and plan (1) Free intraperitoneal air: Status: Acute Assessment and plan: Although the patient is postop days 7 and 3 status post exploratory laparotomy, the volume of free air seems to be discordant. No obvious leak noted per UGI series and no definitive leak noted per follow-up CT scan. The patient remains afebrile with stable normal vital signs. His white blood cell count is not elevated and he states that he is feeling a little better . Although he may ultimately benefit from endoscopic evaluation and/or repeat exploration (may require transfer to a tertiary center), initially proceeding with continued nasogastric decompression and NPO status reasonable. If he does have a tiny focus of injury ( pinhole ) that has not been able to be identified/located...it may ultimately resolve/heal with conservative management. As he may require NPO status for an extended period of time, I have discussed the possibility of beginning TPN with the primary service. (2) Transverse colon volvulus: Status: Acute Assessment and plan: POD7 and POD3 s/p subtotal colectomy/ileostomy and follow-up re-exploration for free intraperitoneal air. (3) Cecal volvulus: Status: Acute
--- NOTE | 2023-06-19 11:26 | XR_ITS ---
FINAL REPORT CLINICAL HISTORY: Confirm PICC line placement COMPARISON: 06/17/2023 abdomen with chest FINDINGS: A single portable view of the chest was obtained. NG tube is present with the tip in the fundus. Right PICC line is present with the tip in the cavoatrial junction. The heart size and pulmonary vascularity are within normal limits. The large pneumoperitoneum has increased from prior. There is mild bibasilar atelectasis. The bony thorax is intact. Postoperative changes are noted in the right humerus. IMPRESSION: NG tube and right PICC line present as above. Increased large pneumoperitoneum. Mild bibasilar atelectasis. Reviewed, Interpreted and Dictated by Onel Nguyen III, MD Transcribed by Geovanna Aguilera Authenticated and [facility]
--- NOTE | 2023-06-19 11:39 | PC.NURSE ---
notified Eliceo Holman of pt needing PICC line.
--- NOTE | 2023-06-19 11:43 | DIET.NUTRFU ---
Addendum entered by Neva Corrales RD, LD 06/19/23 14:49: TPN of AA4.25 D10% will run at 95ml once at goal rate to provide 2280ml/96.6gm protein and 1662.8kcal with GIR of 2.44 to provide 100% of nutritional needs until oral diet is medically feasible determined by surgeon Original Note: Patient still unable to advance diet, he has been NPO since 06/16 post secondary sx. He was NPO from 06/11-06/14 lunch prior to 1st GI sx. Patient is nutritional depleted with severe PCM. Patient is reported to have BM on 06/18 and 06/19, but also still reporting abdominal pain. Last dose of bolus fluids on 06/17. Since unable to start oral diet, pharmacy was consulted to start TPN. Needs are based on severe depletion at CBW of 64.8kg are 1600-1800kcal and 85-95gm protein. This RD will work with liza to provide nutrition in TPN, trapper up to goals.
--- NOTE | 2023-06-19 11:44 | EXP.PN ---
Subjective *Date: 06/19/23 *Time: 16:58 Interval history: No acute events overnight denies pain Exam Data for Last 24 hours Vital signs and Labs for Last 24 Hours: Temp Pulse Resp BP Pulse Ox O2 Del Method 98.3 F 67 19 95/64 L 100 Room Air 06/19/23 11:17 06/19/23 11:17 06/19/23 11:17 06/19/23 11:17 06/19/23 11:17 06/19/23 11:17 Laboratory Results - last 24 hr 06/19/23 05:33: WBC 4.3 L, RBC 4.34 L, Hgb 13.2 L, Hct 40.4 L, MCV 93.0, MCH 30.5, MCHC 32.8, RDW 14.3, Plt Count 152, MPV 9.5, Neut % (Auto) 76.8, Lymph % (Auto) 17.8, [place] % (Auto) 4.6, Eos % (Auto) 0.7, Baso % (Auto) 0.3, Neut # (Auto) 3.3, Lymph # (Auto) 0.8, [place] # (Auto) 0.2, Eos # (Auto) 0.0, Baso # (Auto) 0.0, Sodium 140, Potassium 3.7, Chloride 108 H, Carbon Dioxide 20 L, Anion Gap 15.7 H, BUN 15, Creatinine 0.60 L, Estimated Creat Clear 68, Estimated GFR 135, Est GFR ( Amer) 164, Glucose 83, Calcium 8.0 L, Phosphorus 2.6, Total Bilirubin 0.5, AST 82 H D, ALT 43 D, Alkaline Phosphatase 74, Total Protein 4.6 L, Albumin 2.3 L, Globulin 2.3, Albumin/Globulin Ratio 1.0 L I & O for Last 24 hours: Intake & Output 06/16/23 06/17/23 06/18/23 06/19/23 23:59 23:59 23:59 23:59 Intake Total 200 / 200 600 / 600 50 / 50 50 / 50 Output Total 2024 / 2024 1225 / 1225 600 / 600 1600 / 1600 Balance -1825 / -1825 -625 / -625 -550 / -550 -1550 / -1550 Weight 69.218 kg 68.719 kg 63.775 kg 64.864 kg Constitutional Constitutional: no acute distress *Routine HEENT Exam Head: Present normocephalic Eye: Present EOMI and PERRL ENT: Present mucous membranes moist Comments: NGT in place *Routine Neck Exam Neck: Present supple; Absent lymphadenopathy *Routine Respiratory Exam Respiratory: Present CTA bilaterally *Routine Cardiovascular Exam Cardiovascular: Present RRR *Routine Abdominal Exam Abdominal: Present soft and tenderness; Absent rebound *Routine Extremities Exam Extremities: Absent cyanosis, clubbing or edema *Routine Skin Exam Skin: Present warm; Absent rash *Routine Neurological Exam Neurological: Present alert and moving all extremities Assessment and Plan *Assessment and plan (1) Transverse colon volvulus: Status: Acute Category: Medical Code(s): K56.2 - Volvulus (2) Cecal volvulus: Status: Acute Category: Medical Code(s): K56.2 - Volvulus (3) History of seizure: Status: Acute Category: Medical Code(s): Z87.898 - Personal history of other specified conditions (4) Hypokalemia: Status: Acute Category: Medical Code(s): E87.6 - Hypokalemia Plan 63 year old male presented to the ED from [place] for c/o abd pain, bloating, constipation for the last two weeks. The ED workup revealed hypokalemia and a massively distended colon with swirl sign suggesting a sigmoid volvulus. The pt arrived to the medical floor hemodynamically stable s/p laparotomy with 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 Status post repeat exploratory laparotomy yesterday morning 06/16. Problems addressed as follows: TRANSVERSE COLON VOLVULUS W/ SECONDARY CECAL VOLVULUS - Continue NG to intermittent low wall suction. N.p.o. at this time. - encourage ambulation - IV morphine 2 mg every 2 hours as needed, monitor for toxicity. - Zofran 4 mg as needed every 6-8 hours for nausea. Protonix PPI 40 mg daily -Zosyn 3.375 gm Q 6 hr for empiric coverage. White cell count remains normal at 6.4. Repeat CBC in the morning ordered. -Tylenol 650 mg every 4-6 hours as needed for fever or pain. -Gastrografin study 06/19/23 revealed no extravasation of contrast but the study is limited secondary to marked gaseous distension in overlapping bowel loops. HX OF SEIZURE -Continue phenobarbital 129.6 mg nightly, zonisamide 100 mg twice daily, and lacosamide 400 mg twice daily per home regimen -Seizure precautions HYPOKALEMIA HYPOCALCEMIA Acid-base disturbances -Potassium stable today.
--- NOTE | 2023-06-19 14:15 | PC.NURSE ---
Radiology called regarding PICC line post xray.
[2023-06-19 15:05] LABS: Cholesterol 106 mg/dl (140-200); Triglycerides 137 mg/dl (30-150)
--- NOTE | 2023-06-19 15:29 | PC.NURSE ---
awaiting chest xray read to start TPN.
--- NOTE | 2023-06-19 17:13 | PC.NURSE ---
pt alert and oriented t/o shift. pt ls cta. pt on room air. pt abdomen flat, bowel sounds active.pt has ng in right nare to suction. abdomen tender intermittently to touch. pt has a midline incision with dressing in place, c/d/i. pt has mucous fistula and ostomy noted to abdomen area. pt has worked with PT/OT today and was up to chair at times. pt has f/c draining at bedside. pt was started on TPN this shift. pt did have picc line placed to right upper arm. pt has used incentive spirometer this shift with encouragement. pt will turn himself in bed with encouragement from staff.
--- NOTE | 2023-06-19 21:58 | PC.NURSE ---
RN offered to walk patient multiple times, all times patient refused stated he didnt want to right now
--- NOTE | 2023-06-19 22:33 | PC.NURSE ---
TPN changed to 50ml/hr, Per MAR notes to go up every 6ht 25ml/hr.
[2023-06-20] VITALS (11 sets, daily range): BP systolic 101–111; BP diastolic 66–75; PULSE 60–80; RESP 18; TEMP 36.5–37.3; O2SAT 91–99; BMI 20.2; BMI 21.5
--- NOTE | 2023-06-20 04:30 | PC.NURSE ---
Increased TPN to 75ml/hr per TPN order from JAN. Spoke to Genia from [facility] to confirm.
[2023-06-20 05:36] LABS: Basophils % 0.3 % (0.1-2.0); Eosinophils % 0.2 % (0.1-12.0); Hematocrit 38.6 % (42.0-52.0); Hemoglobin 12.6 g/dL (14.1-18.0); Lymphocytes # 0.8 K/mm3 (0.7-4.5); Lymphocytes % 21.4 % (10-50); Mean Corpuscular HGB Conc 32.7 g/dL (31.8-35.4); Mean Corpuscular Hemoglobin 30.6 pg (27.0-31.2); Mean Corpuscular Volume 93.6 fl (80-94); Monocytes # 0.2 K/mm3 (0.1-1.0); Monocytes % 5.7 % (1.7-9.3); Neutrophils # 2.7 K/mm3 (1.8-7.8); Neutrophils % 72.3 % (37.0-80.0); Platelet Count 148 K/mm3 (142-424); Red Blood Count 4.13 M/mm3 (4.60-6.20); Red Cell Distribution Width 14.4 % (11.5-17.5); White Blood Count 3.7 K/mm3 (4.8-10.8)
[2023-06-20 05:39] LABS: POC Glucose,Bedside 140 (70-110)
--- NOTE | 2023-06-20 05:39 | PC.NURSE ---
Patient got rest last night. Did not complain of pain or nausea. No other issues were noted.
[2023-06-20 05:42] LABS: Chloride 108 mmol/L (98-107); Potassium 3.3 mmoL/L (3.5-5.1); Sodium 141 mmol/L (136-145)
[2023-06-20 05:44] LABS: Alanine Aminotransferase 62 U/L (12-78); Ammonia 27 umol/L (9-30); Aspartate Amino Transferase 124 U/L (17-59); Blood Urea Nitrogen 16 mg/dl (9-20); Creatinine Clearance Estimated 64 mL/min (50-200); Estimated Glomerular Filt Rate 135 ml/min (>60); GFR (African American) 164 ML/MIN (>60)
[2023-06-20 05:45] LABS: Albumin Level 2.3 g/dl (3.5-5.0); Alkaline Phosphatase 73 U/L (38-126); Anion Gap 7.3 mEq/L (5-15); Bilirubin,Total 0.3 mg/dl (0.2-1.3); Calcium 7.9 mg/dl (8.4-10.2); Carbon Dioxide 29 mmol/L (22.0-30.0); Globulin 2.4 g/dL (1.3-3.2); Glucose 153 mg/dl (74-100); Magnesium 2.1 mg/dl (1.6-2.3); Phosphorous 2.5 mg/dl (2.5-4.5); Total Protein,Serum 4.7 g/dl (6.3-8.2)
--- NOTE | 2023-06-20 06:56 | P.PN_ITS ---
Subjective Patient reports: no new complaints Narrative: Per nursing 200 mL of fluid was emptied from his ileostomy bag this evening Exam Data for Last 24 hours Vital signs and Labs for Last 24 Hours: Temp Pulse Resp BP Pulse Ox O2 Del Method 97.8 F 70 18 107/75 L 91 L Room Air 06/20/23 04:00 06/20/23 05:00 06/20/23 04:00 06/20/23 04:00 06/20/23 04:00 06/20/23 06:55 Laboratory Results - last 24 hr 06/19/23 14:30: Triglycerides 137, Cholesterol 106 L 06/20/23 05:25: POC Glucose 140 H 06/20/23 05:30: WBC 3.7 L, RBC 4.13 L, Hgb 12.6 L, Hct 38.6 L, MCV 93.6, MCH 30.6, MCHC 32.7, RDW 14.4, Plt Count 148, MPV 9.0, Neut % (Auto) 72.3, Lymph % (Auto) 21.4, [place] % (Auto) 5.7, Eos % (Auto) 0.2, Baso % (Auto) 0.3, Neut # (Auto) 2.7, Lymph # (Auto) 0.8, [place] # (Auto) 0.2, Eos # (Auto) 0.0, Baso # (Auto) 0.0, Sodium 141, Potassium 3.3 L, Chloride 108 H, Carbon Dioxide 29, Anion Gap 7.3, BUN 16, Creatinine 0.60 L, Estimated Creat Clear 64, Estimated GFR 135, Est GFR ( Amer) 164, Glucose 153 H D, Calcium 7.9 L, Phosphorus 2.5, Magnesium 2.1, Total Bilirubin 0.3, AST 124 H D, ALT 62 D, Alkaline Phosphatase 73, Ammonia 27, Total Protein 4.7 L, Albumin 2.3 L, Globulin 2.4, Albumin/Globulin Ratio 1.0 L I & O for Last 24 hours: Intake & Output 06/17/23 06/18/23 06/19/23 06/20/23 11:59 11:59 11:59 11:59 Intake Total 100 / 100 600 / 600 100 / 100 100 / 100 Output Total 1300 / 1300 675 / 675 2049 / 2049 950 / 950 Balance -1200 / -1200 -75 / -75 -1950 / -1950 -850 / -850 Weight 151 lb 8 oz 140 lb 9.6 oz 143 lb 136 lb 7 oz Constitutional Constitutional: no acute distress *Routine Respiratory Exam Respiratory: Absent respiratory distress *Routine Cardiovascular Exam Cardiovascular: Absent tachycardia *Routine Abdominal Exam Abdominal: Present soft Comments: Epigastric distention improved Progress Note: A&P Assessment and plan (1) Free intraperitoneal air: Status: Acute Assessment and plan: The patient is postop days 8 and 4 status post exploratory laparotomy; however, the volume of free air seems to be discordant. He does have decreased epigastric distention this AM. In addition, no obvious leak noted per UGI series and no definitive leak noted per follow-up CT scan. The patient remains afebrile with stable normal vital signs. His white blood cell count is not elevated and he continues to deny significant pain. As previously stated, he may ultimately benefit from endoscopic evaluation and/or repeat exploration (may require transfer to a tertiary center). Currently, the plan remains to continue with nasogastric decompression and NPO status. As he may require NPO status for an extended period of time, TPN remains reasonable. (2) Transverse colon volvulus: Status: Acute Assessment and plan: POD8 and POD4 s/p subtotal colectomy/ileostomy and follow-up re-exploration for free intraperitoneal air. (3) Cecal volvulus: Status: Acute
--- NOTE | 2023-06-20 08:39 | EXP.PN ---
Subjective *Date: 06/20/23 *Time: 12:34 Interval history: No acute events overnight He denies abdominal pain He denies nausea Exam Data for Last 24 hours Vital signs and Labs for Last 24 Hours: Temp Pulse Resp BP Pulse Ox O2 Del Method 97.7 F 66 18 107/75 L 99 Room Air 06/20/23 07:35 06/20/23 07:35 06/20/23 07:35 06/20/23 04:00 06/20/23 07:35 06/20/23 07:35 Laboratory Results - last 24 hr 06/19/23 14:30: Triglycerides 137, Cholesterol 106 L 06/20/23 05:25: POC Glucose 140 H 06/20/23 05:30: WBC 3.7 L, RBC 4.13 L, Hgb 12.6 L, Hct 38.6 L, MCV 93.6, MCH 30.6, MCHC 32.7, RDW 14.4, Plt Count 148, MPV 9.0, Neut % (Auto) 72.3, Lymph % (Auto) 21.4, [place] % (Auto) 5.7, Eos % (Auto) 0.2, Baso % (Auto) 0.3, Neut # (Auto) 2.7, Lymph # (Auto) 0.8, [place] # (Auto) 0.2, Eos # (Auto) 0.0, Baso # (Auto) 0.0, Sodium 141, Potassium 3.3 L, Chloride 108 H, Carbon Dioxide 29, Anion Gap 7.3, BUN 16, Creatinine 0.60 L, Estimated Creat Clear 64, Estimated GFR 135, Est GFR ( Amer) 164, Glucose 153 H D, Calcium 7.9 L, Phosphorus 2.5, Magnesium 2.1, Total Bilirubin 0.3, AST 124 H D, ALT 62 D, Alkaline Phosphatase 73, Ammonia 27, Total Protein 4.7 L, Albumin 2.3 L, Globulin 2.4, Albumin/Globulin Ratio 1.0 L I & O for Last 24 hours: Intake & Output 06/17/23 06/18/23 06/19/23 06/20/23 23:59 23:59 23:59 23:59 Intake Total 600 / 600 50 / 50 150 / 150 0 / 0 Output Total 1225 / 1225 600 / 600 2200 / 2200 350 / 350 Balance -625 / -625 -550 / -550 -2050 / -2050 -350 / -350 Weight 68.719 kg 63.775 kg 64.864 kg 65.998 kg Constitutional Constitutional: no acute distress *Routine HEENT Exam Head: Present normocephalic Eye: Present EOMI and PERRL ENT: Present mucous membranes moist Comments: NGT in place *Routine Neck Exam Neck: Present supple; Absent lymphadenopathy *Routine Respiratory Exam Respiratory: Present CTA bilaterally *Routine Cardiovascular Exam Cardiovascular: Present RRR *Routine Abdominal Exam Abdominal: Present soft and tenderness; Absent rebound Comments: ileostomy bag with thin/clear green/brown fluid midline vertical incision with dressing c/d/i *Routine Extremities Exam Extremities: Absent cyanosis, clubbing or edema *Routine Skin Exam Skin: Present warm; Absent rash *Routine Neurological Exam Neurological: Present alert and moving all extremities Assessment and Plan *Assessment and plan (1) Transverse colon volvulus: Status: Acute Category: Medical Code(s): K56.2 - Volvulus (2) Cecal volvulus: Status: Acute Category: Medical Code(s): K56.2 - Volvulus (3) History of seizure: Status: Acute Category: Medical Code(s): Z87.898 - Personal history of other specified conditions (4) Hypokalemia: Status: Acute Category: Medical Code(s): E87.6 - Hypokalemia Plan #pneumoperitoneum #transverse colon volvulus The patient is s/p laparotomy with 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 s/p repeat exploratory lapartomy 06/16. Nasogastric decompression per General surgery. Per General Surgery volume of pneumoperitoneum is discordant and the patient may benefit from endoscopic evaluation or repeat exploration. TPN was started on 06/19/23 Continuing Protonix and Zosyn (06/12-present) I will order a CBC and CMP for tomorrow morning NPO Full code dvt ppx: SCDs
[2023-06-20 12:38] LABS: POC Glucose,Bedside 138 (70-110)
--- NOTE | 2023-06-20 13:20 | PC.NURSE ---
ROUNDED ON PT. SITTING UP IN BED ASLEEP AT THIS TIME. NO NEEDS OR DISCOMFORT NOTED AT THIS TIME.
[2023-06-20 18:00] LABS: POC Glucose,Bedside 138 (70-110)
[2023-06-20 21:30] LABS: POC Glucose,Bedside 104 (70-110)
--- NOTE | 2023-06-20 22:29 | PC.NURSE ---
Encouraged patient to get up and walk. Patient did not want to at this time. informed patient that it would help his strength. Patient asked to do in the AM.
[2023-06-21] VITALS: BP 101/68; PULSE 78; PULSE 80; RESP 18; TEMP 36.8; O2SAT 95
[2023-06-21 04:00] VITALS: BP 94/68; PULSE 74; PULSE 80; RESP 18; TEMP 36.6; O2SAT 99; BMI 20.7
--- NOTE | 2023-06-21 04:39 | PC.NURSE ---
With 4:00 rounds we got patient to stand on side of bed. For a couple minutes. Patient tolerated it good. Did complain of pain the middle of the ABD. Cramping like in nature. a gradually got worse. See MAR. A coccyx patch was applied for protection. No breakdown was noted or redness. Patient has had an okay night. other than the once complaint of pain no other issues were noted.
[2023-06-21 05:50] LABS: POC Glucose,Bedside 119 (70-110)
[2023-06-21 05:54] LABS: Basophils % 0.4 % (0.1-2.0); Eosinophils % 0.1 % (0.1-12.0); Hemoglobin 12.8 g/dL (14.1-18.0); Lymphocytes # 0.6 K/mm3 (0.7-4.5); Lymphocytes % 14.7 % (10-50); Mean Corpuscular Volume 93.5 fl (80-94); Mean Platelet Volume 9.9 fl (7.4-10.4); Monocytes # 0.3 K/mm3 (0.1-1.0); Monocytes % 6.7 % (1.7-9.3); Neutrophils # 3.3 K/mm3 (1.8-7.8); Neutrophils % 78.1 % (37.0-80.0); Platelet Count 136 K/mm3 (142-424); Red Blood Count 4.27 M/mm3 (4.60-6.20); Red Cell Distribution Width 14.3 % (11.5-17.5); White Blood Count 4.2 K/mm3 (4.8-10.8)
[2023-06-21 05:59] LABS: Chloride 108 mmol/L (98-107); Potassium 3.6 mmoL/L (3.5-5.1); Sodium 138 mmol/L (136-145)
[2023-06-21 06:01] LABS: Blood Urea Nitrogen 16 mg/dl (9-20); Creatinine Clearance Estimated 66 mL/min (50-200); Estimated Glomerular Filt Rate 167 ml/min (>60); GFR (African American) 202 ML/MIN (>60)
[2023-06-21 06:02] LABS: Alanine Aminotransferase 79 U/L (12-78); Albumin Level 2.2 g/dl (3.5-5.0); Albumin/Globulin Ratio 0.9 (1.1-1.8); Alkaline Phosphatase 67 U/L (38-126); Ammonia 58 umol/L (9-30); Anion Gap 7.6 mEq/L (5-15); Aspartate Amino Transferase 185 U/L (17-59); Bilirubin,Total 0.4 mg/dl (0.2-1.3); Calcium 7.8 mg/dl (8.4-10.2); Carbon Dioxide 26 mmol/L (22.0-30.0); Globulin 2.5 g/dL (1.3-3.2); Glucose 131 mg/dl (74-100); Magnesium 2.1 mg/dl (1.6-2.3); Phosphorous 2.6 mg/dl (2.5-4.5); Total Protein,Serum 4.7 g/dl (6.3-8.2)
--- NOTE | 2023-06-21 06:31 | EXP.SURG.PN ---
Subjective Narrative: No major complaints. Some minor abdominal cramping. Has had mild NG output. Ileostomy functioning. Exam Data for Last 24 hours Vital signs and Labs for Last 24 Hours: Temp Pulse Resp BP Pulse Ox O2 Del Method 97.8 F 74 18 94/68 L 99 Room Air 06/21/23 04:00 06/21/23 04:00 06/21/23 04:00 06/21/23 04:00 06/21/23 04:00 06/21/23 05:00 Laboratory Results - last 24 hr 06/20/23 12:31: POC Glucose 138 H 06/20/23 17:53: POC Glucose 138 H 06/20/23 21:11: POC Glucose 104 06/21/23 05:38: POC Glucose 119 H 06/21/23 05:40: WBC 4.2 L, RBC 4.27 L, Hgb 12.8 L, Hct 40.0 L, MCV 93.5, MCH 30.0, MCHC 32.0, RDW 14.3, Plt Count 136 L, MPV 9.9, Neut % (Auto) 78.1, Lymph % (Auto) 14.7, [place] % (Auto) 6.7, Eos % (Auto) 0.1, Baso % (Auto) 0.4, Neut # (Auto) 3.3, Lymph # (Auto) 0.6 L, [place] # (Auto) 0.3, Eos # (Auto) 0.0, Baso # (Auto) 0.0, Sodium 138, Potassium 3.6, Chloride 108 H, Carbon Dioxide 26, Anion Gap 7.6, BUN 16, Creatinine 0.50 L, Estimated Creat Clear 66, Estimated GFR 167, Est GFR ( Amer) 202 D, Glucose 131 H, Calcium 7.8 L, Phosphorus 2.6, Magnesium 2.1, Total Bilirubin 0.4, AST 185 H D, ALT 79 H D, Alkaline Phosphatase 67, Ammonia 58 H, Total Protein 4.7 L, Albumin 2.2 L, Globulin 2.5, Albumin/Globulin Ratio 0.9 L I & O for Last 24 hours: Intake & Output 06/18/23 06/19/23 06/20/23 06/21/23 11:59 11:59 11:59 11:59 Intake Total 600 / 600 100 / 100 100 / 100 1240 / 1240 Output Total 675 / 675 2049 950 / 950 1949 / 1949 Balance -75 / -75 -1950 / -1950 -850 / -850 -710 / -710 Weight 140 lb 9.6 oz 143 lb 145 lb 8 oz 140 lb 8 oz *Routine Abdominal Exam Abdominal: Present soft Comments: Ileostomy healthy and functioning. Some focal epigastric distention. Progress Note: A&P Assessment and plan (1) Transverse colon volvulus: Status: Acute (2) Cecal volvulus: Status: Acute (3) History of seizure: Status: Acute (4) Hypokalemia: Status: Acute Assessment and Plan Assessment and Plan for All Diagnoses:: DC [place]. Increase activity. May ambulate with NG tube clamped.
--- NOTE | 2023-06-21 06:54 | PC.NURSE ---
midline dressing removed, carr removed at 6:45. Due to void by 12:45pm
[2023-06-21 08:00] VITALS: BP 95/61; PULSE 73; PULSE 80; RESP 16; TEMP 36.8; O2SAT 98
--- NOTE | 2023-06-21 09:07 | EXP.PN ---
Subjective *Date: 06/21/23 *Time: 19:52 Interval history: No acute events overnight. no pain Exam Data for Last 24 hours Vital signs and Labs for Last 24 Hours: Temp Pulse Resp BP Pulse Ox O2 Del Method 98.2 F 73 16 95/61 L 98 Room Air 06/21/23 08:00 06/21/23 08:00 06/21/23 08:00 06/21/23 08:00 06/21/23 08:00 06/21/23 08:00 Laboratory Results - last 24 hr 06/20/23 12:31: POC Glucose 138 H 06/20/23 17:53: POC Glucose 138 H 06/20/23 21:11: POC Glucose 104 06/21/23 05:38: POC Glucose 119 H 06/21/23 05:40: WBC 4.2 L, RBC 4.27 L, Hgb 12.8 L, Hct 40.0 L, MCV 93.5, MCH 30.0, MCHC 32.0, RDW 14.3, Plt Count 136 L, MPV 9.9, Neut % (Auto) 78.1, Lymph % (Auto) 14.7, [place] % (Auto) 6.7, Eos % (Auto) 0.1, Baso % (Auto) 0.4, Neut # (Auto) 3.3, Lymph # (Auto) 0.6 L, [place] # (Auto) 0.3, Eos # (Auto) 0.0, Baso # (Auto) 0.0, Sodium 138, Potassium 3.6, Chloride 108 H, Carbon Dioxide 26, Anion Gap 7.6, BUN 16, Creatinine 0.50 L, Estimated Creat Clear 66, Estimated GFR 167, Est GFR ( Amer) 202 D, Glucose 131 H, Calcium 7.8 L, Phosphorus 2.6, Magnesium 2.1, Total Bilirubin 0.4, AST 185 H D, ALT 79 H D, Alkaline Phosphatase 67, Ammonia 58 H, Total Protein 4.7 L, Albumin 2.2 L, Globulin 2.5, Albumin/Globulin Ratio 0.9 L I & O for Last 24 hours: Intake & Output 06/18/23 06/19/23 06/20/23 06/21/23 23:59 23:59 23:59 23:59 Intake Total 50 / 50 150 / 150 50 / 1240 1190 / 1190 Output Total 600 / 600 2200 / 2200 450 / 450 1850 / 1850 Balance -550 / -550 -2050 / -2050 -400 / 790 -660 / -660 Weight 63.775 kg 64.864 kg 65.998 kg 63.73 kg Constitutional Constitutional: no acute distress *Routine HEENT Exam Head: Present normocephalic Eye: Present EOMI and PERRL ENT: Present mucous membranes moist Comments: NGT in place *Routine Neck Exam Neck: Present supple; Absent lymphadenopathy *Routine Respiratory Exam Respiratory: Present CTA bilaterally *Routine Cardiovascular Exam Cardiovascular: Present RRR *Routine Abdominal Exam Abdominal: Present soft and tenderness; Absent rebound Comments: ileostomy bag with thin/clear green/brown fluid midline vertical incision with dressing c/d/i *Routine Extremities Exam Extremities: Absent cyanosis, clubbing or edema *Routine Skin Exam Skin: Present warm; Absent rash *Routine Neurological Exam Neurological: Present alert and moving all extremities Assessment and Plan *Assessment and plan (1) Transverse colon volvulus: Status: Acute Category: Medical Code(s): K56.2 - Volvulus (2) Cecal volvulus: Status: Acute Category: Medical Code(s): K56.2 - Volvulus (3) History of seizure: Status: Acute Category: Medical Code(s): Z87.898 - Personal history of other specified conditions (4) Hypokalemia: Status: Acute Category: Medical Code(s): E87.6 - Hypokalemia Plan #pneumoperitoneum #transverse colon volvulus The patient is s/p laparotomy with 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 s/p repeat exploratory lapartomy 06/16. Nasogastric decompression per General surgery. Per General Surgery volume of pneumoperitoneum is discordant and the patient may benefit from endoscopic evaluation or repeat exploration. TPN was started on 06/19/23 Continuing Protonix and Zosyn (06/12-present). will stop zosyn after today; he will have completed 10 days. I will order a CBC and CMP for tomorrow morning NPO Full code dvt ppx: SCDs
--- NOTE | 2023-06-21 10:15 | DIET.NUTRFU ---
Patient continues on TPN for 100% nutrition, labs were reviewed with pharmacy. Liver enzymes seem to be getting worse, now at 185/79. Reviewed output: NG 350ml and ostomy was 100ml yesterday. According to surgeon's note the ieostomy is healthy and functioning, some epigastric distention with some abdominal cramping. Encouraged him to get up and move around today, the NG tube is clamped at this time. Will continue current TPN until oral diet can be initiated. When ready for discharge placement has been arranged
[2023-06-21 10:46] LABS: POC Glucose,Bedside 105 (70-110)
[2023-06-21 12:00] VITALS: BP 97/64; PULSE 78; PULSE 80; RESP 18; TEMP 37.1; O2SAT 94
[2023-06-21 16:00] VITALS: BP 108/68; PULSE 78; PULSE 80; RESP 22; TEMP 36.6; O2SAT 99
[2023-06-21 16:37] LABS: POC Glucose,Bedside 122 (70-110)
--- NOTE | 2023-06-21 17:50 | PC.NURSE ---
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
--- NOTE | 2023-06-21 18:30 | PC.NURSE ---
pt has complained of pain one time this shift, treated per MAR, pt reeducated on use of IS, pt demonstrated appropriate use this shift, and has been reminded to use it
[2023-06-21 20:00] VITALS: BP 97/73; PULSE 75; PULSE 80; RESP 18; TEMP 37.2; O2SAT 95
[2023-06-21 21:38] LABS: POC Glucose,Bedside 105 (70-110)
[2023-06-22] VITALS (7 sets, daily range): BP systolic 93–122; BP diastolic 54–83; PULSE 70–85; RESP 16–22; TEMP 36.6–37; O2SAT 95–98; BMI 21.0; BMI 20.7
[2023-06-22 09:57] LABS: Chloride 105 mmol/L (98-107)
[2023-06-22 09:58] LABS: Sodium 135 mmol/L (136-145)
[2023-06-22 10:00] LABS: Alanine Aminotransferase 81 U/L (12-78); Albumin Level 2.2 g/dl (3.5-5.0); Albumin/Globulin Ratio 0.9 (1.1-1.8); Alkaline Phosphatase 69 U/L (38-126); Ammonia 29 umol/L (9-30); Aspartate Amino Transferase 148 U/L (17-59); Bilirubin,Total 0.5 mg/dl (0.2-1.3); Carbon Dioxide 24 mmol/L (22.0-30.0); Globulin 2.4 g/dL (1.3-3.2); Total Protein,Serum 4.6 g/dl (6.3-8.2)
[2023-06-22 10:01] LABS: Calcium 7.9 mg/dl (8.4-10.2); Glucose 113 mg/dl (74-100); Magnesium 2.1 mg/dl (1.6-2.3); Phosphorous 2.8 mg/dl (2.5-4.5)
[2023-06-22 10:05] LABS: Blood Urea Nitrogen 19 mg/dl (9-20); Creatinine Clearance Estimated 66 mL/min (50-200); Estimated Glomerular Filt Rate 167 ml/min (>60); GFR (African American) 202 ML/MIN (>60)
[2023-06-22 10:09] LABS: Basophils % 0.3 % (0.1-2.0); Eosinophils % 0.2 % (0.1-12.0); Hematocrit 39.3 % (42.0-52.0); Hemoglobin 12.7 g/dL (14.1-18.0); Lymphocytes # 0.7 K/mm3 (0.7-4.5); Lymphocytes % 12.7 % (10-50); Mean Corpuscular HGB Conc 32.2 g/dL (31.8-35.4); Mean Corpuscular Hemoglobin 30.8 pg (27.0-31.2); Mean Corpuscular Volume 95.7 fl (80-94); Mean Platelet Volume 10.9 fl (7.4-10.4); Monocytes # 0.3 K/mm3 (0.1-1.0); Monocytes % 6.3 % (1.7-9.3); Neutrophils # 4.2 K/mm3 (1.8-7.8); Neutrophils % 80.5 % (37.0-80.0); Platelet Count 113 K/mm3 (142-424); Red Cell Distribution Width 14.4 % (11.5-17.5); White Blood Count 5.2 K/mm3 (4.8-10.8)
--- NOTE | 2023-06-22 11:25 | EXP.SURG.PN ---
Subjective Patient reports: no new complaints Exam Data for Last 24 hours Vital signs and Labs for Last 24 Hours: Temp Pulse Resp BP Pulse Ox O2 Del Method 98.6 F 80 22 113/83 97 Room Air 06/22/23 08:00 06/22/23 08:00 06/22/23 08:00 06/22/23 08:00 06/22/23 08:00 06/22/23 09:00 Laboratory Results - last 24 hr 06/21/23 16:31: POC Glucose 122 H 06/21/23 21:29: POC Glucose 105 06/22/23 09:16: WBC 5.2, RBC 4.10 L, Hgb 12.7 L, Hct 39.3 L, MCV 95.7 H, MCH 30.8, MCHC 32.2, RDW 14.4, Plt Count 113 L, MPV 10.9 H, Neut % (Auto) 80.5 H, Lymph % (Auto) 12.7, [place] % (Auto) 6.3, Eos % (Auto) 0.2, Baso % (Auto) 0.3, Neut # (Auto) 4.2, Lymph # (Auto) 0.7, [place] # (Auto) 0.3, Eos # (Auto) 0.0, Baso # (Auto) 0.0, Sodium 135 L, Potassium 4.0, Chloride 105, Carbon Dioxide 24, Anion Gap 10.0, BUN 19, Creatinine 0.50 L, Estimated Creat Clear 66, Estimated GFR 167, Est GFR ( Amer) 202, Glucose 113 H, Calcium 7.9 L, Phosphorus 2.8, Magnesium 2.1, Total Bilirubin 0.5, AST 148 H, ALT 81 H, Alkaline Phosphatase 69, Ammonia 29, Total Protein 4.6 L, Albumin 2.2 L, Globulin 2.4, Albumin/Globulin Ratio 0.9 L I & O for Last 24 hours: Intake & Output 06/19/23 06/20/23 06/21/23 06/22/23 11:59 11:59 11:59 11:59 Intake Total 100 / 100 100 / 100 1240 / 1240 2260 / 2260 Output Total 2049 950 / 950 1949 / 1950 1400 / 1400 Balance -1950 / -1950 -850 / -850 -710 / -710 860 / 860 Weight 143 lb 145 lb 8 oz 140 lb 8 oz 140 lb 8 oz *Routine Abdominal Exam Comments: Slight distension. Tender to deep palpation without guarding or rebound. Progress Note: A&P Assessment and plan (1) Transverse colon volvulus: Status: Acute Assessment and plan: Clinically still with some pneumoperitoneum without peritonitis. Bowels functioning. Continue NG and TPN for now (2) Cecal volvulus: Status: Acute (3) History of seizure: Status: Acute (4) Hypokalemia: Status: Acute
--- NOTE | 2023-06-22 13:41 | EXP.PN ---
Subjective *Date: 06/22/23 *Time: 18:10 Interval history: No acute events overnight. No complaints of pain. Exam Data for Last 24 hours Vital signs and Labs for Last 24 Hours: Temp Pulse Resp BP Pulse Ox O2 Del Method 98.0 F 82 20 107/63 L 96 Room Air 06/22/23 11:36 06/22/23 11:36 06/22/23 11:36 06/22/23 11:36 06/22/23 11:36 06/22/23 12:43 Laboratory Results - last 24 hr 06/21/23 16:31: POC Glucose 122 H 06/21/23 21:29: POC Glucose 105 06/22/23 09:16: WBC 5.2, RBC 4.10 L, Hgb 12.7 L, Hct 39.3 L, MCV 95.7 H, MCH 30.8, MCHC 32.2, RDW 14.4, Plt Count 113 L, MPV 10.9 H, Neut % (Auto) 80.5 H, Lymph % (Auto) 12.7, [place] % (Auto) 6.3, Eos % (Auto) 0.2, Baso % (Auto) 0.3, Neut # (Auto) 4.2, Lymph # (Auto) 0.7, [place] # (Auto) 0.3, Eos # (Auto) 0.0, Baso # (Auto) 0.0, Sodium 135 L, Potassium 4.0, Chloride 105, Carbon Dioxide 24, Anion Gap 10.0, BUN 19, Creatinine 0.50 L, Estimated Creat Clear 66, Estimated GFR 167, Est GFR ( Amer) 202, Glucose 113 H, Calcium 7.9 L, Phosphorus 2.8, Magnesium 2.1, Total Bilirubin 0.5, AST 148 H, ALT 81 H, Alkaline Phosphatase 69, Ammonia 29, Total Protein 4.6 L, Albumin 2.2 L, Globulin 2.4, Albumin/Globulin Ratio 0.9 L I & O for Last 24 hours: Intake & Output 06/19/23 06/20/23 06/21/23 06/22/23 23:59 23:59 23:59 23:59 Intake Total 150 / 150 50 / 1240 1290 / 1290 2160 / 2160 Output Total 2200 / 2200 450 / 450 2675 / 2675 575 / 575 Balance -2049 / -2049 -400 / 790 -1385 / -1385 1585 / 1585 Weight 64.864 kg 65.998 kg 63.73 kg 63.73 kg Constitutional Constitutional: no acute distress *Routine HEENT Exam Head: Present normocephalic Eye: Present EOMI and PERRL ENT: Present mucous membranes moist Comments: NGT in place *Routine Neck Exam Neck: Present supple; Absent lymphadenopathy *Routine Respiratory Exam Respiratory: Present CTA bilaterally *Routine Cardiovascular Exam Cardiovascular: Present RRR *Routine Abdominal Exam Abdominal: Present soft and tenderness; Absent rebound Comments: ileostomy bag with thin/clear green/brown fluid midline vertical incision with dressing c/d/i *Routine Extremities Exam Extremities: Absent cyanosis, clubbing or edema *Routine Skin Exam Skin: Present warm; Absent rash *Routine Neurological Exam Neurological: Present alert and moving all extremities Assessment and Plan *Assessment and plan (1) Transverse colon volvulus: Status: Acute Category: Medical Code(s): K56.2 - Volvulus (2) Cecal volvulus: Status: Acute Category: Medical Code(s): K56.2 - Volvulus (3) History of seizure: Status: Acute Category: Medical Code(s): Z87.898 - Personal history of other specified conditions (4) Hypokalemia: Status: Acute Category: Medical Code(s): E87.6 - Hypokalemia Plan #pneumoperitoneum #transverse colon volvulus The patient is s/p laparotomy with 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 s/p repeat exploratory lapartomy 06/16. Nasogastric decompression per General surgery. Per General Surgery volume of pneumoperitoneum is discordant and the patient may benefit from endoscopic evaluation or repeat exploration. The patient received 10 days of Zosyn. TPN was started on 06/19/23 Continuing Protonix. I will order a CBC and CMP for tomorrow morning NPO Full code dvt ppx: SCDs
--- NOTE | 2023-06-22 16:53 | PC.NURSE ---
SRNA NOTE: nurse (Elba DEAN) made aware of low blood pressure at 1600 vital signs.
--- NOTE | 2023-06-22 17:49 | PC.NURSE ---
PT IS RESTING IN BED. ALERT AND ORIENTED X3. MEDICATED PER MAR FOR DISCOMFORT. PT TOLERATED AMBULATING IN THE [place] WITH 1 ASSIST. UNSTEADY GAIT. PT TOLERATED SITTING UP IN THE CHAIR FOR A COUPLE OF HOURS THIS SHIFT. BATH AND LINEN CHANGE. 250 ML'S GREEN GASTRIC CONTENTS EMPTIED FROM CANISTER. 25 ML'S EMPTIED FROM COLOSTOMY. MIDLINE INCISION OPEN TO AIR. ABDOMEN TENDER/DISTENDED WITH HYPOACTIVE BOWEL SOUNDS. WILL CONTINUE TO MONITOR.
[2023-06-22 17:53] LABS: POC Glucose,Bedside 101 (70-110)
[2023-06-22 17:53] LABS: POC Glucose,Bedside 112 (70-110)
[2023-06-22 17:53] LABS: POC Glucose,Bedside 100 (70-110)
[2023-06-23] VITALS: BP 104/70; PULSE 82; RESP 20; TEMP 36.8; O2SAT 97
[2023-06-23 04:00] VITALS: BP 105/66; PULSE 80; PULSE 81; RESP 18; TEMP 36.9; O2SAT 97; BMI 21.1
--- NOTE | 2023-06-23 07:26 | INFXCTL.NOTE ---
Pt A&OX4. Pt c/o abd pain this shift. medicated prn per jan. NG to r nare @ 58 cm to continuous LWS. 150 ml of bright green gastric content emptied this shift. Colostomy draining well. 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 Pt refused to wear scd's and to ambulate this shift. TPN infusing @95ml/hr.
[2023-06-23 08:00] VITALS: BP 100/66; PULSE 82; RESP 19; TEMP 36.8; O2SAT 98
--- NOTE | 2023-06-23 08:32 | EXP.PN ---
Subjective *Date: 06/23/23 *Time: 23:47 Interval history: No acute events overnight. He denies pain and shortness of breath. Exam Data for Last 24 hours Vital signs and Labs for Last 24 Hours: Temp Pulse Resp BP Pulse Ox O2 Del Method 98.4 F 81 18 105/66 L 97 Room Air 06/23/23 04:00 06/23/23 04:00 06/23/23 04:00 06/23/23 04:00 06/23/23 04:00 06/23/23 07:00 Laboratory Results - last 24 hr 06/22/23 04:54: POC Glucose 101 06/22/23 09:16: WBC 5.2, RBC 4.10 L, Hgb 12.7 L, Hct 39.3 L, MCV 95.7 H, MCH 30.8, MCHC 32.2, RDW 14.4, Plt Count 113 L, MPV 10.9 H, Neut % (Auto) 80.5 H, Lymph % (Auto) 12.7, [place] % (Auto) 6.3, Eos % (Auto) 0.2, Baso % (Auto) 0.3, Neut # (Auto) 4.2, Lymph # (Auto) 0.7, [place] # (Auto) 0.3, Eos # (Auto) 0.0, Baso # (Auto) 0.0, Sodium 135 L, Potassium 4.0, Chloride 105, Carbon Dioxide 24, Anion Gap 10.0, BUN 19, Creatinine 0.50 L, Estimated Creat Clear 66, Estimated GFR 167, Est GFR ( Amer) 202, Glucose 113 H, Calcium 7.9 L, Phosphorus 2.8, Magnesium 2.1, Total Bilirubin 0.5, AST 148 H, ALT 81 H, Alkaline Phosphatase 69, Ammonia 29, Total Protein 4.6 L, Albumin 2.2 L, Globulin 2.4, Albumin/Globulin Ratio 0.9 L 06/22/23 10:44: POC Glucose 112 H 06/22/23 15:49: POC Glucose 100 I & O for Last 24 hours: Intake & Output 06/20/23 06/21/23 06/22/23 06/23/23 23:59 23:59 23:59 23:59 Intake Total 50 / 1240 1290 / 1290 3135 / 3135 1045 / 1045 Output Total 450 / 450 2675 / 2675 1250 / 1250 500 / 500 Balance -400 / 790 -1385 / -1385 1885 / 1885 545 / 545 Weight 65.998 kg 63.73 kg 63.73 kg 64.773 kg Constitutional Constitutional: no acute distress *Routine HEENT Exam Head: Present normocephalic Eye: Present EOMI and PERRL ENT: Present mucous membranes moist Comments: NGT in place *Routine Neck Exam Neck: Present supple; Absent lymphadenopathy *Routine Respiratory Exam Respiratory: Present CTA bilaterally *Routine Cardiovascular Exam Cardiovascular: Present RRR *Routine Abdominal Exam Abdominal: Present soft and tenderness; Absent rebound Comments: ileostomy bag with thin/clear green/brown fluid midline vertical incision with dressing c/d/i *Routine Extremities Exam Extremities: Absent cyanosis, clubbing or edema *Routine Skin Exam Skin: Present warm; Absent rash *Routine Neurological Exam Neurological: Present alert and moving all extremities Assessment and Plan *Assessment and plan (1) Transverse colon volvulus: Status: Acute Category: Medical Code(s): K56.2 - Volvulus (2) Cecal volvulus: Status: Acute Category: Medical Code(s): K56.2 - Volvulus (3) History of seizure: Status: Acute Category: Medical Code(s): Z87.898 - Personal history of other specified conditions (4) Hypokalemia: Status: Acute Category: Medical Code(s): E87.6 - Hypokalemia Plan #pneumoperitoneum #transverse colon volvulus The patient is s/p laparotomy with 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 s/p repeat exploratory lapartomy 06/16. Nasogastric decompression per General surgery. Per General Surgery volume of pneumoperitoneum is discordant and the patient may benefit from endoscopic evaluation or repeat exploration. The patient received 10 days of Zosyn. TPN was started on 06/19/23 Continuing Protonix. I will order a CBC and CMP for tomorrow morning NPO Full code dvt ppx: SCDs
[2023-06-23 08:45] LABS: Chloride 105 mmol/L (98-107)
[2023-06-23 08:46] LABS: Sodium 133 mmol/L (136-145)
[2023-06-23 08:48] LABS: Alanine Aminotransferase 69 U/L (12-78); Aspartate Amino Transferase 108 U/L (17-59); Blood Urea Nitrogen 18 mg/dl (9-20); Creatinine Clearance Estimated 67 mL/min (50-200); Estimated Glomerular Filt Rate 135 ml/min (>60); GFR (African American) 164 ML/MIN (>60)
[2023-06-23 08:49] LABS: Albumin Level 2.3 g/dl (3.5-5.0); Albumin/Globulin Ratio 0.9 (1.1-1.8); Alkaline Phosphatase 85 U/L (38-126); Bilirubin,Total 0.5 mg/dl (0.2-1.3); Carbon Dioxide 25 mmol/L (22.0-30.0); Globulin 2.5 g/dL (1.3-3.2); Glucose 112 mg/dl (74-100); Magnesium 2.1 mg/dl (1.6-2.3); Phosphorous 2.7 mg/dl (2.5-4.5); Total Protein,Serum 4.8 g/dl (6.3-8.2)
[2023-06-23 08:50] LABS: Ammonia < 9 umol/L (9-30)
[2023-06-23 08:58] LABS: Basophils % 0.2 % (0.1-2.0); Eosinophils % 0.2 % (0.1-12.0); Hematocrit 37.8 % (42.0-52.0); Hemoglobin 12.2 g/dL (14.1-18.0); Lymphocytes # 0.8 K/mm3 (0.7-4.5); Lymphocytes % 15.4 % (10-50); Mean Corpuscular HGB Conc 32.4 g/dL (31.8-35.4); Mean Corpuscular Hemoglobin 30.9 pg (27.0-31.2); Mean Corpuscular Volume 95.4 fl (80-94); Mean Platelet Volume 11.4 fl (7.4-10.4); Monocytes # 0.4 K/mm3 (0.1-1.0); Monocytes % 8.3 % (1.7-9.3); Neutrophils # 3.8 K/mm3 (1.8-7.8); Platelet Count 132 K/mm3 (142-424); Red Blood Count 3.96 M/mm3 (4.60-6.20); Red Cell Distribution Width 14.4 % (11.5-17.5); White Blood Count 4.9 K/mm3 (4.8-10.8)
--- NOTE | 2023-06-23 09:23 | PC.NURSE ---
pt walked 100ft with assistance of two. Pt sit up in chair for a hour and will get back up later on
--- NOTE | 2023-06-23 11:08 | P.PN_ITS ---
Subjective Narrative: No significant issues. Patient has been up and out of bed with minimal ambulation with assistance. Mild to moderate NG output. Ileostomy functioning with minimal amount of liquid and some gas. Exam Data for Last 24 hours Vital signs and Labs for Last 24 Hours: Temp Pulse Resp BP Pulse Ox O2 Del Method 98.2 F 82 19 100/66 L 98 Room Air 06/23/23 08:00 06/23/23 08:00 06/23/23 08:00 06/23/23 08:00 06/23/23 08:00 06/23/23 09:00 Laboratory Results - last 24 hr 06/22/23 04:54: POC Glucose 101 06/22/23 10:44: POC Glucose 112 H 06/22/23 15:49: POC Glucose 100 06/23/23 07:37: WBC 4.9, RBC 3.96 L, Hgb 12.2 L, Hct 37.8 L, MCV 95.4 H, MCH 30.9, MCHC 32.4, RDW 14.4, Plt Count 132 L, MPV 11.4 H, Neut % (Auto) 76.0, Lymph % (Auto) 15.4, [place] % (Auto) 8.3, Eos % (Auto) 0.2, Baso % (Auto) 0.2, Neut # (Auto) 3.8, Lymph # (Auto) 0.8, [place] # (Auto) 0.4, Eos # (Auto) 0.0, Baso # (Auto) 0.0, Sodium 133 L, Potassium 4.0, Chloride 105, Carbon Dioxide 25, Anion Gap 7.0, BUN 18, Creatinine 0.60 L, Estimated Creat Clear 67, Estimated GFR 135, Est GFR ( Amer) 164, Glucose 112 H, Calcium 8.0 L, Phosphorus 2.7, Magnesium 2.1, Total Bilirubin 0.5, AST 108 H D, ALT 69, Alkaline Phosphatase 85, Ammonia < 9 L, Total Protein 4.8 L, Albumin 2.3 L, Globulin 2.5, Albumin/Globulin Ratio 0.9 L I & O for Last 24 hours: Intake & Output 06/20/23 06/21/23 06/22/23 06/23/23 11:59 11:59 11:59 11:59 Intake Total 100 / 100 1240 / 1240 2260 / 2260 2019 Output Total 950 / 950 1950 / 1949 1400 / 1400 1175 / 1175 Balance -850 / -850 -710 / -710 860 / 860 845 / 845 Weight 145 lb 8 oz 140 lb 8 oz 140 lb 8 oz 142 lb 12.8 oz *Routine Abdominal Exam Abdominal: Present soft and distended Comments: Abdomen is tympanic consistent with pneumoperitoneum. Minimal tenderness. No guarding or rebound or peritonitis. 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 with TPN for now due to ongoing persistence of pneumoperitoneum.
[2023-06-23 11:51] LABS: POC Glucose,Bedside 108 (70-110)
[2023-06-23 11:51] LABS: POC Glucose,Bedside 122 (70-110)
[2023-06-23 11:51] LABS: POC Glucose,Bedside 97 (70-110)
[2023-06-23 12:00] VITALS: BP 99/68; PULSE 78; RESP 18; TEMP 36.7; O2SAT 97
[2023-06-23 16:00] VITALS: BP 105/77; PULSE 79; RESP 17; TEMP 36.8; O2SAT 98
--- NOTE | 2023-06-23 16:42 | PC.NURSE ---
PT IS RESTING IN BED. PT HAS TOLERATED SITTING UP IN THE CHAIR SEVERAL TIMES THIS SHIFT. PT HAS AMBULATED IN THE [place] AND WORKED WITH PHYSICAL THERAPY. PT HAS REQUIRED ENCOURAGEMENT WITH MOTIVATION. PT GETS VERY TIRED AFTER AMBULATING A SHORT DISTANCE IN THE [place]. ABDOMEN SOFT WITH SOME DISTENTION. ACTIVE BOWEL SOUNDS. 150 ML'S GREEN GASTRIC CONTENTS EMPTIED FROM NG CANISTER. WILL CONTINUE TO MONITOR.
[2023-06-23 19:50] VITALS: BP 106/66; PULSE 81; RESP 20; TEMP 36.9; O2SAT 92
[2023-06-23 21:17] LABS: POC Glucose,Bedside 106 (70-110)
[2023-06-23 21:17] LABS: POC Glucose,Bedside 99 (70-110)
[2023-06-24] VITALS (18 sets, daily range): BP systolic 83–102; BP diastolic 52–69; PULSE 78–116; RESP 13–19; TEMP 36.5–43; O2SAT 95–100; BMI 22.8; BMI 23.1
--- NOTE | 2023-06-24 06:22 | EXP.SURG.PN ---
Subjective Narrative: Patient has had some abdominal discomfort. Requiring pain medicine. Exam Data for Last 24 hours Vital signs and Labs for Last 24 Hours: Temp Pulse Resp BP Pulse Ox O2 Del Method 98.2 F 86 16 101/63 L 97 Room Air 06/24/23 04:00 06/24/23 04:00 06/24/23 04:00 06/24/23 04:00 06/24/23 04:00 06/24/23 05:00 Laboratory Results - last 24 hr 06/22/23 21:05: POC Glucose 97 06/23/23 05:41: POC Glucose 108 06/23/23 07:37: WBC 4.9, RBC 3.96 L, Hgb 12.2 L, Hct 37.8 L, MCV 95.4 H, MCH 30.9, MCHC 32.4, RDW 14.4, Plt Count 132 L, MPV 11.4 H, Neut % (Auto) 76.0, Lymph % (Auto) 15.4, [place] % (Auto) 8.3, Eos % (Auto) 0.2, Baso % (Auto) 0.2, Neut # (Auto) 3.8, Lymph # (Auto) 0.8, [place] # (Auto) 0.4, Eos # (Auto) 0.0, Baso # (Auto) 0.0, Sodium 133 L, Potassium 4.0, Chloride 105, Carbon Dioxide 25, Anion Gap 7.0, BUN 18, Creatinine 0.60 L, Estimated Creat Clear 67, Estimated GFR 135, Est GFR ( Amer) 164, Glucose 112 H, Calcium 8.0 L, Phosphorus 2.7, Magnesium 2.1, Total Bilirubin 0.5, AST 108 H D, ALT 69, Alkaline Phosphatase 85, Ammonia < 9 L, Total Protein 4.8 L, Albumin 2.3 L, Globulin 2.5, Albumin/Globulin Ratio 0.9 L 06/23/23 10:52: POC Glucose 122 H 06/23/23 15:22: POC Glucose 99 06/23/23 20:22: POC Glucose 106 I & O for Last 24 hours: Intake & Output 06/21/23 06/22/23 06/23/23 06/24/23 11:59 11:59 11:59 11:59 Intake Total 1240 / 1240 2260 / 2260 2019 2254 / 2254 Output Total 1949 / 1949 1400 / 1400 1175 / 1175 1650 / 1650 Balance -710 / -710 860 / 860 845 / 845 604 / 604 Weight 140 lb 8 oz 140 lb 8 oz 142 lb 12.8 oz 154 lb 4.8 oz *Routine Abdominal Exam Abdominal: Present distended Comments: Minimal tenderness. Ileostomy functioning with gas and succus present. Mucous fistula with scant liquid. Progress Note: A&P Assessment and plan (1) Transverse colon volvulus: Status: Acute Assessment and plan: Clinically patient has persistent significant pneumoperitoneum. This is concerning as he is postoperative day #8 from his last operation. He has never had fever, tachycardia, hypotension, leukocytosis, or findings of peritonitis on examination however. I will plan for a follow-up CT scan with contrast per NG tube to reevaluate as it has been approximately 1 week. Potential for possible repeat exploration. (2) Cecal volvulus: Status: Acute (3) History of seizure: Status: Acute (4) Hypokalemia: Status: Acute
[2023-06-24 06:42] LABS: Basophils % 0.3 % (0.1-2.0); Eosinophils % 0.4 % (0.1-12.0); Hematocrit 37.3 % (42.0-52.0); Hemoglobin 12.2 g/dL (14.1-18.0); Lymphocytes # 0.8 K/mm3 (0.7-4.5); Lymphocytes % 13.7 % (10-50); Mean Corpuscular HGB Conc 32.7 g/dL (31.8-35.4); Mean Corpuscular Hemoglobin 30.7 pg (27.0-31.2); Mean Platelet Volume 10.7 fl (7.4-10.4); Monocytes # 0.5 K/mm3 (0.1-1.0); Neutrophils # 4.3 K/mm3 (1.8-7.8); Neutrophils % 76.6 % (37.0-80.0); Platelet Count 137 K/mm3 (142-424); Red Blood Count 3.96 M/mm3 (4.60-6.20); Red Cell Distribution Width 14.7 % (11.5-17.5); White Blood Count 5.6 K/mm3 (4.8-10.8)
[2023-06-24 06:47] LABS: Ammonia 17 umol/L (9-30)
[2023-06-24 06:48] LABS: Chloride 105 mmol/L (98-107); Potassium 3.8 mmoL/L (3.5-5.1); Sodium 134 mmol/L (136-145)
[2023-06-24 06:50] LABS: Alanine Aminotransferase 55 U/L (12-78); Aspartate Amino Transferase 78 U/L (17-59); Blood Urea Nitrogen 15 mg/dl (9-20); Creatinine Clearance Estimated 73 mL/min (50-200); Estimated Glomerular Filt Rate 167 ml/min (>60); GFR (African American) 202 ML/MIN (>60)
[2023-06-24 06:51] LABS: Albumin Level 2.2 g/dl (3.5-5.0); Albumin/Globulin Ratio 0.8 (1.1-1.8); Alkaline Phosphatase 94 U/L (38-126); Anion Gap 10.8 mEq/L (5-15); Bilirubin,Total 0.5 mg/dl (0.2-1.3); Calcium 7.9 mg/dl (8.4-10.2); Carbon Dioxide 22 mmol/L (22.0-30.0); Globulin 2.6 g/dL (1.3-3.2); Glucose 128 mg/dl (74-100); Magnesium 2.1 mg/dl (1.6-2.3); Phosphorous 2.7 mg/dl (2.5-4.5); Total Protein,Serum 4.8 g/dl (6.3-8.2)
[2023-06-24 07:07] LABS: POC Glucose,Bedside 116 (70-110)
--- NOTE | 2023-06-24 08:07 | EXP.PN ---
Subjective *Date: 06/25/23 *Time: 06:10 Interval history: No acute events overnight. No appetite. No pain. Exam Data for Last 24 hours Vital signs and Labs for Last 24 Hours: Temp Pulse Resp BP Pulse Ox O2 Del Method 98.2 F 86 16 101/63 L 97 Room Air 06/24/23 04:00 06/24/23 04:00 06/24/23 04:00 06/24/23 04:00 06/24/23 04:00 06/24/23 06:52 Laboratory Results - last 24 hr 06/22/23 21:05: POC Glucose 97 06/23/23 05:41: POC Glucose 108 06/23/23 07:37: WBC 4.9, RBC 3.96 L, Hgb 12.2 L, Hct 37.8 L, MCV 95.4 H, MCH 30.9, MCHC 32.4, RDW 14.4, Plt Count 132 L, MPV 11.4 H, Neut % (Auto) 76.0, Lymph % (Auto) 15.4, [place] % (Auto) 8.3, Eos % (Auto) 0.2, Baso % (Auto) 0.2, Neut # (Auto) 3.8, Lymph # (Auto) 0.8, [place] # (Auto) 0.4, Eos # (Auto) 0.0, Baso # (Auto) 0.0, Sodium 133 L, Potassium 4.0, Chloride 105, Carbon Dioxide 25, Anion Gap 7.0, BUN 18, Creatinine 0.60 L, Estimated Creat Clear 67, Estimated GFR 135, Est GFR ( Amer) 164, Glucose 112 H, Calcium 8.0 L, Phosphorus 2.7, Magnesium 2.1, Total Bilirubin 0.5, AST 108 H D, ALT 69, Alkaline Phosphatase 85, Ammonia < 9 L, Total Protein 4.8 L, Albumin 2.3 L, Globulin 2.5, Albumin/Globulin Ratio 0.9 L 06/23/23 10:52: POC Glucose 122 H 06/23/23 15:22: POC Glucose 99 06/23/23 20:22: POC Glucose 106 06/24/23 06:05: POC Glucose 116 H 06/24/23 06:20: WBC 5.6, RBC 3.96 L, Hgb 12.2 L, Hct 37.3 L, MCV 94.0, MCH 30.7, MCHC 32.7, RDW 14.7, Plt Count 137 L, MPV 10.7 H, Neut % (Auto) 76.6, Lymph % (Auto) 13.7, [place] % (Auto) 9.0, Eos % (Auto) 0.4, Baso % (Auto) 0.3, Neut # (Auto) 4.3, Lymph # (Auto) 0.8, [place] # (Auto) 0.5, Eos # (Auto) 0.0, Baso # (Auto) 0.0, Sodium 134 L, Potassium 3.8, Chloride 105, Carbon Dioxide 22, Anion Gap 10.8, BUN 15, Creatinine 0.50 L, Estimated Creat Clear 73, Estimated GFR 167, Est GFR ( Amer) 202 D, Glucose 128 H, Calcium 7.9 L, Phosphorus 2.7, Magnesium 2.1, Total Bilirubin 0.5, AST 78 H D, ALT 55, Alkaline Phosphatase 94, Ammonia 17, Total Protein 4.8 L, Albumin 2.2 L, Globulin 2.6, Albumin/Globulin Ratio 0.8 L I & O for Last 24 hours: Intake & Output 06/21/23 06/22/23 06/23/23 06/24/23 23:59 23:59 23:59 23:59 Intake Total 1290 / 1290 3135 / 3135 1935 / 1935 1364 / 1364 Output Total 2675 / 2675 1250 / 1250 1500 / 1600 650 / 650 Balance -1385 / -1385 1885 / 1885 435 / 335 714 / 714 Weight 63.73 kg 63.73 kg 64.773 kg 69.989 kg Constitutional Constitutional: no acute distress *Routine HEENT Exam Head: Present normocephalic Eye: Present EOMI and PERRL ENT: Present mucous membranes moist Comments: NGT in place *Routine Neck Exam Neck: Present supple; Absent lymphadenopathy *Routine Respiratory Exam Respiratory: Present CTA bilaterally *Routine Cardiovascular Exam Cardiovascular: Present RRR *Routine Abdominal Exam Abdominal: Present soft and tenderness; Absent rebound Comments: ileostomy bag with thin/clear green/brown fluid midline vertical incision with dressing c/d/i *Routine Extremities Exam Extremities: Absent cyanosis, clubbing or edema *Routine Skin Exam Skin: Present warm; Absent rash *Routine Neurological Exam Neurological: Present alert and moving all extremities Assessment and Plan *Assessment and plan (1) Transverse colon volvulus: Status: Acute Category: Medical Code(s): K56.2 - Volvulus (2) Cecal volvulus: Status: Acute Category: Medical Code(s): K56.2 - Volvulus (3) History of seizure: Status: Acute Category: Medical Code(s): Z87.898 - Personal history of other specified conditions (4) Hypokalemia: Status: Acute Category: Medical Code(s): E87.6 - Hypokalemia Plan #pneumoperitoneum #transverse colon volvulus The patient is s/p laparotomy with 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 s/p repeat exploratory laparotomy 06/16. Per General Surgery volume of pneumoperitoneum is discordant with what is expected after surg
--- NOTE | 2023-06-24 08:30 | PC.NURSE ---
contacted radiology for the gastrografin, rad stated they do not have an order. paged harpreetran, per md contact rad again to have them bring the gastrografin. pt needs to be rescanned.
[2023-06-24 11:40] LABS: POC Glucose,Bedside 117 (70-110)
--- NOTE | 2023-06-24 12:00 | CT_ITS ---
FINAL REPORT TECHNIQUE: After the administration of intravenous contrast, axial images were obtained through the abdomen and pelvis by computed tomography. This study was performed with technique to keep radiation doses as low as reasonably achievable, (ALARA). Individualized dose reduction techniques using automated exposure control or adjustment of the MA and/or KV according to the patient's size were employed. CLINICAL HISTORY: PERSISTENT ABDOMINAL DISTENSION, PNEUMOPERITONEUM COMPARISON: 06/18/2023 FINDINGS: Abdomen: Atelectasis is seen at the right lung base. The liver demonstrates a nodular contour likely related to cirrhosis. The spleen is unremarkable. The adrenals are normal. The pancreas is unremarkable. The kidneys enhance appropriately. The aorta is normal in caliber. There is no adenopathy. There is massive ascites and pneumoperitoneum, essentially unchanged from prior exam. There is a midline row of skin josé luis. Pelvis: The appendix is not identified. There are bilateral anterior pelvic wall ostomies. There is air in the urinary bladder which is likely iatrogenic. There is no free fluid or adenopathy. IMPRESSION: Stable, persistent massive pneumoperitoneum and ascites. Cannot exclude occult bowel perforation. Midline row skin josé luis with bilateral anterior pelvic wall ostomies. Reviewed, Interpreted and Dictated by Viet Pop MD Transcribed by Agnes Soto Authenticated and [facility]
--- NOTE | 2023-06-24 12:47 | PC.NURSE ---
pet ino, good chance he will georgi epot back to th or. due to pt being lara of state, ino advise to go ahead and start calling pts contacts to gain consent. multiple calls made, left vm to carrol for a call back
--- NOTE | 2023-06-24 13:21 | DIET.NUTRFU ---
Patient continues to receive 100% nutrition via TPN, surgeon indicated he may need another procedure. Reviewed fluid balance on 06/23: urine output 1150ml, gastric NG output 300ml and stool ostomy output 50ml. Wt is up 5# since yesterday, will continue to monitor. Labs reviewed hydration WNL, glucose elevated 128H, insulin ordered. Liver enzymes improved 78H/55 and albumin 2.2L. Will continue to monitor, continue current POC
--- NOTE | 2023-06-24 14:07 | P.PN_ITS ---
Subjective Patient reports: no new complaints Exam Data for Last 24 hours Vital signs and Labs for Last 24 Hours: Temp Pulse Resp BP Pulse Ox O2 Del Method 98.2 F 78 18 101/63 L 98 Room Air 06/24/23 08:00 06/24/23 08:00 06/24/23 08:00 06/24/23 04:00 06/24/23 08:00 06/24/23 13:00 Laboratory Results - last 24 hr 06/23/23 15:22: POC Glucose 99 06/23/23 20:22: POC Glucose 106 06/24/23 06:05: POC Glucose 116 H 06/24/23 06:20: WBC 5.6, RBC 3.96 L, Hgb 12.2 L, Hct 37.3 L, MCV 94.0, MCH 30.7, MCHC 32.7, RDW 14.7, Plt Count 137 L, MPV 10.7 H, Neut % (Auto) 76.6, Lymph % (Auto) 13.7, [place] % (Auto) 9.0, Eos % (Auto) 0.4, Baso % (Auto) 0.3, Neut # (Auto) 4.3, Lymph # (Auto) 0.8, [place] # (Auto) 0.5, Eos # (Auto) 0.0, Baso # (Auto) 0.0, Sodium 134 L, Potassium 3.8, Chloride 105, Carbon Dioxide 22, Anion Gap 10.8, BUN 15, Creatinine 0.50 L, Estimated Creat Clear 73, Estimated GFR 167, Est GFR ( Amer) 202 D, Glucose 128 H, Calcium 7.9 L, Phosphorus 2.7, Magnesium 2.1, Total Bilirubin 0.5, AST 78 H D, ALT 55, Alkaline Phosphatase 94, Ammonia 17, Total Protein 4.8 L, Albumin 2.2 L, Globulin 2.6, Albumin/Globulin Ratio 0.8 L 06/24/23 11:29: POC Glucose 117 H I & O for Last 24 hours: Intake & Output 06/22/23 06/23/23 06/24/23 06/25/23 11:59 11:59 11:59 11:59 Intake Total 2260 / 2260 2019 / 2019 2254 / 2254 Output Total 1400 / 1400 1175 / 1175 1650 / 1650 Balance 860 / 860 845 / 845 604 / 604 Weight 140 lb 8 oz 142 lb 12.8 oz 156 lb 1.6 oz Progress Note: A&P Assessment and plan (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 Occult bowel perforation cannot be excluded. Given the persistent massive amount of air and fluid in the abdomen with possible occult perforation is felt that laparotomy would be warranted. Attempt was made to obtain consent from the POA as the patient is a lara of the [facility]. Consent is granted for laparotomy but not for possible bowel resection. It was relayed that if this is necessary this could be deemed an emergency intraoperatively and consent could be foregone.
--- NOTE | 2023-06-24 14:23 | P.PNANES_ITS ---
[facility] Anesthesia Record Part I Anesthesia Record I Intake, IV Amount: 700
--- NOTE | 2023-06-24 14:23 | EXP.ANES.I ---
[facility] Anesthesia Record Part I Anesthesia Record I Intake, IV Amount: 700
--- NOTE | 2023-06-24 19:29 | P.PNANES_ITS ---
[facility] Anesthesia Record Part I Anesthesia Record I Intake, IV Amount: 3,600 Hydration: Adequate Estimated blood loss (mL): 350 Urine output (mL): 400 Blood Pressure: 100/63 SaO2: 96 Pulse Rate: 90 Airway Patency: Patent Respiratory Rate: 14 Temperature: 97.8 F Patient is:: Awake and Stable Stable to PACU at:: 19:25
--- NOTE | 2023-06-24 19:30 | EXP.OP.NOTE ---
Date of procedure: 06/24/23 Pre-op Diagnosis:: Massive pneumoperitoneum Post-op Diagnosis:: Same Procedure performed:: Exploratory laparotomy with abdominal washout Surgeon:: Onel Castaneda MD CLINICAL SCIENTIST:: Kyle Florentino Anesthesia: GETSaurabh Estimated blood loss (mL): 50 Clinical Note:: Patient is a 63-year-old male. He is a resident at [facility]. He had presented to the emergency department in the evening of 06/11/2023 with a couple day history of progressive severe abdominal pain and distention. Evaluation in the emergency department revealed findings of large bowel volvulus with closed-loop obstruction. Surgery was consulted. Patient was seen and evaluated by Dr. Smith. He underwent attempt at colonoscopic decompression without success as this was potentially a sigmoid volvulus. Patient was taken emergently to the operating room in the correctional nurse hours of 06/12/2023 at which time he underwent laparotomy and was found to have complete volvulus of the transverse colon creating severe secondary right colonic torsion with secondary cecal volvulus. Patient underwent subtotal colectomy with creation of end ileostomy and descending/sigmoid colon mucous fistula creation. On postoperative day #1 patient had his nasogastric tube placed to drain and it was removed later that day. On postoperative day #2 patient was started on some limited clear liquids. He did develop some epigastric abdominal distention. Diet was judiciously advanced. On correctional nurse 1 AM nursing rounds on 06/16/2023 patient was noted to be more significantly distended and complained of upset stomach. Patient underwent CT scan evaluation ordered by the hospitalist which revealed massive volume of pneumoperitoneum and severe gaseous distention of the visualized loops of bowel extending to the region of the right lower quadrant ostomy site. Nursing place nasogastric tube. Patient was evaluated by the surgeon on-call and his CT scan was reviewed. Given the acute change in findings of massive pneumoperitoneum with appreciable bowel distention with intra-abdominal fluid there was concern for possible perforated viscus. Patient was taken emergently to the operating room at which time he was found to have findings of severe ileus with distention of bowel without mechanical obstruction. Exploration was carried out which did reveal distended defunctionalized sigmoid colon and distended stomach which was decompressed through nasogastric tube. There was no evidence of any definite perforation. Postoperatively plan was made to continue n.p.o. status with nasogastric decompression. He had ongoing significant pneumoperitoneum. He had a Gastrografin upper GI series followed by additional water-soluble contrast and CT scan which revealed edematous appearing of the stomach with some narrowing of the proximal duodenum possibly due to edema with no extravasation of contrast. CT scan revealed significant pneumoperitoneum with no definite leak. Patient remained on an n.p.o. status and TPN was initiated. He did have some ileostomy output. He remained distended with some ongoing vague abdominal pain. Over the next several days patient had some progressive weakness. He had ongoing abdominal pain and distention. As it had been [address] scan follow-up CT scan was performed with Gastrografin contrast via the NG tube. This revealed findings of massive ascites and pneumoperitoneum as well as diffuse anasarca remain present, and are not improved when compared to the prior examination on 06/18/2023. Given the patient's slight clinical deterioration characterized by some increasing abdominal pain requiring narcotic pain medication and progressive weakness with these findings on CT scan showing persistent massive ascites and massive pneumoperitoneum plan was made for reexploration. Operative findings:: Patient had approximately 4 L of benign nonenteric appearing ascites in the abdomen. The
[2023-06-24 20:00] LABS: POC Glucose,Bedside 89 (70-110)
--- NOTE | 2023-06-24 20:00 | PC.NURSE ---
pt arrived to floor from pacu at this time
--- NOTE | 2023-06-24 20:14 | SUR.PHASEI ---
1954: Detailed reported given to DIANNE Hutchinson on Med-Surg floor. Vital signs stable at this time. Dressing clean, dry, and intact. Finger stick 89 at this time.
--- NOTE | 2023-06-24 22:03 | PC.NURSE ---
Addendum entered by Evangelina Nguyễn RN 06/25/23 01:05: Bereket from pharmacy also stated to start next bag of TPN and day shift pharmacy can adjust timing today. Original Note: spoke with [facility] and bereket with [facility]. it is ok to restart TPN bag from day shift and it is ok to hang fat emulsions with the tpn. TPN and fat emulsions started.
[2023-06-25] VITALS (15 sets, daily range): BP systolic 89–115; BP diastolic 52–72; PULSE 88–105; RESP 13–18; TEMP 36.5–37.2; O2SAT 96–100; BMI 20.7
[2023-06-25 05:48] LABS: POC Glucose,Bedside 129 (70-110)
[2023-06-25 05:59] LABS: Chloride 107 mmol/L (98-107); Potassium 4.9 mmoL/L (3.5-5.1); Sodium 133 mmol/L (136-145)
[2023-06-25 06:01] LABS: Ammonia 39 umol/L (9-30)
[2023-06-25 06:02] LABS: Alanine Aminotransferase 61 U/L (12-78); Albumin Level 2.2 g/dl (3.5-5.0); Albumin/Globulin Ratio 0.8 (1.1-1.8); Alkaline Phosphatase 77 U/L (38-126); Anion Gap 10.9 mEq/L (5-15); Aspartate Amino Transferase 81 U/L (17-59); Bilirubin,Total 0.6 mg/dl (0.2-1.3); Blood Urea Nitrogen 18 mg/dl (9-20); Calcium 7.9 mg/dl (8.4-10.2); Carbon Dioxide 20 mmol/L (22.0-30.0); Creatinine Clearance Estimated 66 mL/min (50-200); Estimated Glomerular Filt Rate 167 ml/min (>60); GFR (African American) 202 ML/MIN (>60); Globulin 2.6 g/dL (1.3-3.2); Glucose 145 mg/dl (74-100); Magnesium 1.9 mg/dl (1.6-2.3); Phosphorous 2.5 mg/dl (2.5-4.5); Total Protein,Serum 4.8 g/dl (6.3-8.2)
--- NOTE | 2023-06-25 06:07 | PC.NURSE ---
NO ACUTE CHANGES THIS SHIFT. PT HAS DONE WELL THIS SHIFT POST OP. HAS C/O PAIN X2 AND HAS BEEN MEDICATED PER JAN. NO OTHER COMPLAINTS THIS SHIFT. NG TUBE HAS HAD VERY LITTLE DRAINAGE THIS SHIFT. GERMAN DRAINS HAVE HAD 750ML OUT TOTAL. CROOKS ID DRAINING ADEQUATE AMOUNTS OF URINE.
[2023-06-25 06:11] LABS: Basophils % 0.2 % (0.1-2.0); Eosinophils # 0.1 K/mm3 (0.0-0.4); Eosinophils % 0.7 % (0.1-12.0); Hematocrit 38.5 % (42.0-52.0); Hemoglobin 12.9 g/dL (14.1-18.0); Lymphocytes # 0.5 K/mm3 (0.7-4.5); Lymphocytes % 4.6 % (10-50); Mean Corpuscular HGB Conc 33.5 g/dL (31.8-35.4); Mean Corpuscular Hemoglobin 31.5 pg (27.0-31.2); Mean Platelet Volume 11.3 fl (7.4-10.4); Monocytes # 0.4 K/mm3 (0.1-1.0); Monocytes % 3.6 % (1.7-9.3); Neutrophils # 9.4 K/mm3 (1.8-7.8); Neutrophils % 90.8 % (37.0-80.0); Platelet Count 166 K/mm3 (142-424); Red Cell Distribution Width 15.2 % (11.5-17.5); White Blood Count 10.4 K/mm3 (4.8-10.8)
[2023-06-25 06:23] LABS: MANUAL DIFFERENTIAL MANUAL DIFFERENTIAL (MANUAL DIFF)
[2023-06-25 06:43] LABS: Microscopic,Cath URINE MICROSCOPIC (MICROSCOPIC)
[2023-06-25 07:01] LABS: Appearance,Urine/Cath CLEAR (Clear); Bilirubin,Cath Negative (Negative); Blood, Urine/Cath 2+ (Negative); Color,Urine/Cath YELLOW (Yellow); Glucose,Urine/Cath (UA) Negative (Negative); Ketones,Urine/Cath Negative (Negative); Leukocyte Esterase,Cath Negative (Negative); Nitrate,Cath Negative (Negative); Protein,Urine/Cath Negative (Negative); Urobilinogen,Cath 0.2 EU/dl (0.2)
[2023-06-25 07:24] LABS: Bacteria,Urine/Cath TRACE /lpf; Mucus,Urine/Cath 1+ /lpf; WBC,Urine/Cath Occasional #/hpf (0-3)
[2023-06-25 07:59] LABS: Lymphocytes % 4 % (10-50); Monocytes % 7 % (2-9); Neutrophils % 84 % (42-76); Total Cells Counted 100
[2023-06-25 08:04] LABS: Anisocytosis 1+; Platelet Estimate Slight Decrease; RBC Morphology Normal
--- NOTE | 2023-06-25 10:42 | P.PN_ITS ---
Subjective Narrative: Patient complains of some soreness. No other complaints. Exam Data for Last 24 hours Vital signs and Labs for Last 24 Hours: Temp Pulse Resp BP Pulse Ox O2 Del Method O2 Flow Rate 99 F 99 H 16 97/67 L 97 Room Air 3 06/25/23 08:00 06/25/23 06:00 06/25/23 06:00 06/25/23 06:00 06/25/23 06:00 06/25/23 09:00 06/24/23 19:55 Laboratory Results - last 24 hr 06/24/23 11:29: POC Glucose 117 H 06/24/23 14:38: Urine Color Yellow, Urine Appearance Clear, Urine pH 7.0, Ur Specific [place] 1.010, Urine Protein Negative, Urine Glucose (UA) Negative, Urine Ketones Negative, Urine Blood 2+, Urine Nitrate Negative, Urine Bilirubin Negative, Urine Urobilinogen 0.2, Ur Leukocyte Esterase Negative, Urine RBC 10- 20, Urine WBC Occasional, Ur Squamous Epith Cells 3-5, Urine Bacteria Trace 06/24/23 19:53: POC Glucose 89 06/25/23 05:34: POC Glucose 129 H 06/25/23 05:38: WBC 10.4 D, RBC 4.10 L, Hgb 12.9 L, Hct 38.5 L, MCV 94.0, MCH 31.5 H, MCHC 33.5, RDW 15.2, Plt Count 166, MPV 11.3 H, Neut % (Auto) 90.8 H, Lymph % (Auto) 4.6 L, [place] % (Auto) 3.6, Eos % (Auto) 0.7, Baso % (Auto) 0.2, Neut # (Auto) 9.4 H, Lymph # (Auto) 0.5 L, [place] # (Auto) 0.4, Eos # (Auto) 0.1, Baso # (Auto) 0.0, Total Counted 100, Neutrophils % (Manual) 84 H, Band Neutrophils % 5.0, Lymphocytes % (Manual) 4 L, Monocytes % (Manual) 7, Platelet Estimate Slight decrease, RBC Morphology Normal, Anisocytosis 1+, Sodium 133 L, Potassium 4.9 D, Chloride 107, Carbon Dioxide 20 L, Anion Gap 10.9, BUN 18, Creatinine 0.50 L, Estimated Creat Clear 66, Estimated GFR 167, Est GFR ( Amer) 202, Glucose 145 H, Calcium 7.9 L, Phosphorus 2.5, Magnesium 1.9, Total Bilirubin 0.6, AST 81 H, ALT 61, Alkaline Phosphatase 77, Ammonia 39 H, Total Protein 4.8 L, Albumin 2.2 L, Globulin 2.6, Albumin/Globulin Ratio 0.8 L I & O for Last 24 hours: Intake & Output 06/22/23 06/23/23 06/24/23 06/25/23 11:59 11:59 11:59 11:59 Intake Total 2260 / 2260 2019 / 2019 2254 / 2254 3600 / 3600 Output Total 1400 / 1400 1175 / 1175 1650 / 1650 1500 / 1500 Balance 860 / 860 845 / 845 604 / 604 2100 / 2100 Weight 140 lb 8 oz 142 lb 12.8 oz 156 lb 1.6 oz 140 lb 3.2 oz *Routine Abdominal Exam Abdominal: Present soft Comments: Ostomy viable. Minimal output. GERMAN drains with appreciable serous output Progress Note: A&P Assessment and plan (1) Transverse colon volvulus: Status: Acute Assessment and plan: Continue n.p.o. and TPN for now. (2) Cecal volvulus: Status: Acute (3) History of seizure: Status: Acute (4) Hypokalemia: Status: Acute
--- NOTE | 2023-06-25 12:05 | EXP.ANES.II ---
[facility] Anesthesia Record Part II Anesthesia Record Part II Discharge Time: 19:55 Destination: Surgical Day Care (OP Surgery) PACU nurse assessment reviewed?: Yes Patient Condition:: Good Anesthesia Complications:: None Swallowing reflex intact?: Yes Airway Patency: Patent Cyanosis?: No Blood Pressure: 89/52 SaO2: 97 Respiratory Rate: 13 Pulse Rate: 90 Temperature: 97.7 F Mental Status: Alert & Oriented Pain level:: 0 Nausea and/or vomitting:: None Intake, IV Amount: 0 Hydration: Adequate
[2023-06-25 12:53] LABS: POC Glucose,Bedside 117 (70-110)
--- NOTE | 2023-06-25 18:01 | PC.NURSE ---
Pt is alert and oriented x4. Dressing to midline abdomen in place. 2 GERMAN drains to left abdomen. 2180 mls of seropsang-cisse drainage emptied this shift. Drainage was initially serosang but changed to cisse by the end of the shift. 250 mls of dark brown drainage noted from ng. Pt was treated x2 this shift for abd pain. Relief reported on reassessment. No other complaints or questions at this time. Bed is locked and in the lowest position, call light is within reach.
--- NOTE | 2023-06-25 20:19 | EXP.ACUTE.PN ---
Subjective *Date: 06/25/23 *Time: 20:19 Interval history: Patient remains hemodynamically stable and afebrile overnight. Weak on exam this morning. Tolerating TPN. Having ascites/serous drainage in GERMAN's. NG still in place. Stable on room air. Medical Exam Vital signs and Labs for Last 24 Hours: Vital Signs Temp Pulse Pulse Resp BP Pulse Ox O2 Del Method 06/25/23 18:52 Room Air 06/25/23 16:00 90 06/25/23 18:00 96 H 16 105/68 L 100 Room Air 06/25/23 17:00 Room Air 06/25/23 16:00 98.3 F 06/25/23 15:00 Room Air 06/25/23 14:00 88 17 99/68 L 99 Room Air 06/25/23 13:00 Room Air 06/25/23 11:00 Room Air 06/25/23 12:00 100 H 16 101/68 L 98 Room Air 06/25/23 10:00 94 H 18 107/66 L 99 06/25/23 08:00 97 H 16 107/69 L 96 Room Air 06/25/23 12:00 98.6 F 06/25/23 12:00 100 H 06/25/23 08:00 90 06/25/23 09:00 Room Air 06/25/23 08:00 99 F 06/25/23 07:00 Room Air 06/25/23 04:00 Room Air 06/25/23 06:00 99 H 16 97/67 L 97 Room Air 06/25/23 04:00 90 06/25/23 04:46 Room Air 06/25/23 04:00 98.7 F 06/25/23 04:00 95 H 16 101/68 L 98 Room Air 06/25/23 00:00 100 H 06/25/23 02:56 Room Air 06/25/23 02:45 100 H 16 104/66 L 96 Room Air 06/25/23 01:45 105 H 18 115/70 98 Room Air 06/25/23 01:00 Room Air 06/25/23 00:45 98 H 16 104/72 L 99 Room Air 06/24/23 23:45 99 H 16 96/68 L 97 Room Air 06/24/23 22:45 89 16 102/69 L 100 Room Air 06/24/23 22:15 95 H 16 99/65 L 100 Room Air 06/24/23 21:45 96 H 16 99/67 L 100 Room Air 06/24/23 21:15 89 16 97/65 L 98 Room Air 06/24/23 20:30 88 16 88/64 L 98 Room Air 06/24/23 20:45 88 16 94/61 L 97 Room Air 06/24/23 23:00 Room Air 06/24/23 21:00 Room Air 06/25/23 00:00 98.4 F 06/24/23 20:31 Room Air 06/25/23 12:06 13 Intake and Output 06/25/23 06/25/23 06/25/23 07:59 15:59 23:59 Intake Total 1795 / 1795 Output Total 1500 / 4630 2930 / 4630 200 / 4630 Balance -1500 / -2835 -1135 / -2835 -200 / -2835 Intake: Intake, Total IV Amount 1794 / 1795 Aa 4.25%/Calcium/Lytes/Dex 10% 1794 / 1794 1,000 ml @ 95 mls/hr IV . [id number] Rx#:[id number] Output: Output, Urine Amount 750 / 1100 350 / 1100 Output, Urine Amount (Catheter) 350 / 350 Coto 350 / 350 Output, Gastric Drainage Amount 250 / 250 Right Nare 250 / 250 Output, Drainage Amount 750 / 2930 1980 / 2930 200 / 2930 Right Upper Abdomen 750 / 2930 1979 / 2930 200 / 2930 Other: Number of Voids 0 Number of Unmeasured Voids 0 0 Number of Bowel Movements 0 Weight 63.594 kg Patient Weight 06/25/23 23:59 Weight 63.594 kg Laboratory Results - last 24 hr 06/24/23 14:38: Urine Color Yellow, Urine Appearance Clear, Urine pH 7.0, Ur Specific [place] 1.010, Urine Protein Negative, Urine Glucose (UA) Negative, Urine Ketones Negative, Urine Blood 2+, Urine Nitrate Negative, Urine Bilirubin Negative, Urine Urobilinogen 0.2, Ur Leukocyte Esterase Negative, Urine RBC 10-20, Urine WBC Occasional, Ur Squamous Epith Cells 3-5, Urine Bacteria Trace 06/25/23 05:34: POC Glucose 129 H 06/25/23 05:38: WBC 10.4 D, RBC 4.10 L, Hgb 12.9 L, Hct 38.5 L, MCV 94.0, MCH 31.5 H, MCHC 33.5, RDW 15.2, Plt Count 166, MPV 11.3 H, Neut % (Auto) 90.8 H, Lymph % (Auto) 4.6 L, [place] % (Auto) 3.6, Eos % (Auto) 0.7, Baso % (Auto) 0.2, Neut # (Auto) 9.4 H, Lymph # (Auto) 0.5 L, [place] # (Auto) 0.4, Eos # (Auto) 0.1, Baso # (Auto) 0.0, Total Counted 100, Neutrophils % (Manual) 84 H, Band Neutrophils % 5.0, Lymphocytes % (Manual) 4 L, Monocytes % (Manual) 7, Platelet Estimate Slight decrease, RBC Morphology Normal, Anisocytosis 1+, Sodium 133 L, Potassium 4.9 D, Chloride 107, Carbon Dioxide 20 L, Anion Gap 10.9, BUN 18, Creatinine 0.50 L, Donna
[2023-06-25 21:29] LABS: POC Glucose,Bedside 154 (70-110)
[2023-06-25 21:39] LABS: POC Glucose,Bedside 111 (70-110)
[2023-06-26] VITALS (17 sets, daily range): BP systolic 83–132; BP diastolic 48–84; PULSE 74–98; RESP 14–19; TEMP 36.4–37; O2SAT 97–100; BMI 19.9
[2023-06-26 06:09] LABS: Basophils % 0.4 % (0.1-2.0); Eosinophils # 0.1 K/mm3 (0.0-0.4); Eosinophils % 0.9 % (0.1-12.0); Hematocrit 35.5 % (42.0-52.0); Hemoglobin 11.6 g/dL (14.1-18.0); Lymphocytes # 0.7 K/mm3 (0.7-4.5); Lymphocytes % 11.5 % (10-50); Mean Corpuscular HGB Conc 32.6 g/dL (31.8-35.4); Mean Corpuscular Hemoglobin 30.8 pg (27.0-31.2); Mean Corpuscular Volume 94.5 fl (80-94); Mean Platelet Volume 10.9 fl (7.4-10.4); Monocytes # 0.4 K/mm3 (0.1-1.0); Monocytes % 7.6 % (1.7-9.3); Neutrophils # 4.7 K/mm3 (1.8-7.8); Neutrophils % 79.6 % (37.0-80.0); Platelet Count 145 K/mm3 (142-424); Red Blood Count 3.76 M/mm3 (4.60-6.20); White Blood Count 5.9 K/mm3 (4.8-10.8)
[2023-06-26 06:16] LABS: Chloride 104 mmol/L (98-107)
[2023-06-26 06:17] LABS: Potassium 4.3 mmoL/L (3.5-5.1); Sodium 130 mmol/L (136-145)
[2023-06-26 06:19] LABS: Alanine Aminotransferase 43 U/L (12-78); Albumin/Globulin Ratio 0.9 (1.1-1.8); Alkaline Phosphatase 81 U/L (38-126); Anion Gap 8.3 mEq/L (5-15); Aspartate Amino Transferase 55 U/L (17-59); Bilirubin,Total 0.6 mg/dl (0.2-1.3); Blood Urea Nitrogen 19 mg/dl (9-20); Carbon Dioxide 22 mmol/L (22.0-30.0); Creatinine Clearance Estimated 64 mL/min (50-200); Estimated Glomerular Filt Rate 167 ml/min (>60); GFR (African American) 202 ML/MIN (>60); Globulin 2.3 g/dL (1.3-3.2); Total Protein,Serum 4.3 g/dl (6.3-8.2)
[2023-06-26 06:20] LABS: Calcium 7.7 mg/dl (8.4-10.2); Glucose 128 mg/dl (74-100); Phosphorous 2.4 mg/dl (2.5-4.5)
[2023-06-26 06:22] LABS: Ammonia 56 umol/L (9-30)
[2023-06-26 06:42] LABS: Cholesterol 72 mg/dl (140-200); Triglycerides 33 mg/dl (30-150)
--- NOTE | 2023-06-26 06:53 | PC.NURSE ---
Addendum entered by Barb Hastings, DIANNE 06/26/23 07:26: 310ml emptied from GERMAN drains this am Original Note: Pt has c/o upper abdominal pain x2 t/o shift. PRN pain medication administered. Pt states [place] works better for him than Morphine. Pt NG tube in place, draining dark blackish fluid. PERSONAL INJURY PARALEGAL Chai made aware. 1130ml drained from 2 GERMAN drains to right upper abdomen. Call light within reach
[2023-06-26 07:21] LABS: POC Glucose,Bedside 127 (70-110)
--- NOTE | 2023-06-26 08:36 | EXP.SURG.PN ---
Subjective Patient reports: no new complaints Exam Data for Last 24 hours Vital signs and Labs for Last 24 Hours: Temp Pulse Resp BP Pulse Ox O2 Del Method O2 Flow Rate 97.8 F 78 14 87/56 L 100 Room Air 3 06/26/23 07:29 06/26/23 06:00 06/26/23 06:00 06/26/23 06:00 06/26/23 06:00 06/26/23 06:50 06/24/23 19:55 Laboratory Results - last 24 hr 06/25/23 12:35: POC Glucose 117 H 06/25/23 16:52: POC Glucose 154 H 06/25/23 21:20: POC Glucose 111 H 06/26/23 05:41: WBC 5.9 D, RBC 3.76 L, Hgb 11.6 L, Hct 35.5 L, MCV 94.5 H, MCH 30.8, MCHC 32.6, RDW 15.0, Plt Count 145, MPV 10.9 H, Neut % (Auto) 79.6, Lymph % (Auto) 11.5, [place] % (Auto) 7.6, Eos % (Auto) 0.9, Baso % (Auto) 0.4, Neut # (Auto) 4.7, Lymph # (Auto) 0.7, [place] # (Auto) 0.4, Eos # (Auto) 0.1, Baso # (Auto) 0.0, Sodium 130 L, Potassium 4.3, Chloride 104, Carbon Dioxide 22, Anion Gap 8.3, BUN 19, Creatinine 0.50 L, Estimated Creat Clear 64, Estimated GFR 167, Est GFR ( Amer) 202, Glucose 128 H, Calcium 7.7 L, Phosphorus 2.4 L, Magnesium 2.0, Total Bilirubin 0.6, AST 55 D, ALT 43 D, Alkaline Phosphatase 81, Ammonia 56 H, Total Protein 4.3 L, Albumin 2.0 L, Globulin 2.3, Albumin/Globulin Ratio 0.9 L, Triglycerides 33, Cholesterol 72 L 06/26/23 06:59: POC Glucose 127 H I & O for Last 24 hours: Intake & Output 06/23/23 06/24/23 06/25/23 06/26/23 11:59 11:59 11:59 11:59 Intake Total 2019 2254 / 2254 3600 / 3600 3229 / 3229 Output Total 1175 / 1175 1650 / 1650 1500 / 1850 5470 / 5470 Balance 845 / 845 604 / 604 2100 / 1750 -2241 / -2241 Weight 142 lb 12.8 oz 156 lb 1.6 oz 140 lb 3.2 oz 134 lb 9 oz Constitutional Constitutional: no acute distress *Routine Respiratory Exam Respiratory: Absent respiratory distress *Routine Cardiovascular Exam Cardiovascular: Absent tachycardia *Routine Abdominal Exam Abdominal: Absent distended Comments: Ileostomy pink and viable. Progress Note: A&P Assessment and plan (1) Free intraperitoneal air: Status: Acute Assessment and plan: No definitive source noted on repeat exploratory laparotomy. 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
[2023-06-26 11:28] LABS: POC Glucose,Bedside 119 (70-110)
--- NOTE | 2023-06-26 13:42 | EXP.ACUTE.PN ---
Subjective *Date: 06/26/23 *Time: 17:17 Interval history: Patient remains hemodynamically stable and afebrile overnight. Weak on exam this morning. Tolerating TPN. Having ascites drainage in GERMAN's. NG still in place. Stable on room air. Medical Exam Vital signs and Labs for Last 24 Hours: Vital Signs Temp Pulse Pulse Resp BP Pulse Ox O2 Del Method 06/26/23 12:59 Room Air 06/26/23 11:41 75 18 83/55 L 100 Room Air 06/26/23 11:40 97.6 F 06/26/23 11:00 Room Air 06/26/23 08:00 98 H 18 132/84 97 Room Air 06/26/23 10:00 79 18 109/48 L 100 Room Air 06/26/23 09:00 Room Air 06/26/23 08:00 100 Room Air 06/26/23 08:00 81 06/26/23 07:29 97.8 F 06/26/23 04:00 79 15 95/63 L 100 Room Air 06/26/23 06:00 78 14 87/56 L 100 Room Air 06/26/23 06:50 Room Air 06/26/23 05:00 Room Air 06/26/23 04:00 80 06/26/23 04:00 98.4 F 06/26/23 03:00 Room Air 06/26/23 02:00 87 19 102/70 L 99 Room Air 06/26/23 01:00 Room Air 06/26/23 00:00 87 15 99/65 L 99 Room Air 06/26/23 00:00 90 06/26/23 00:00 98.6 F 06/25/23 20:00 100 Room Air 06/25/23 22:00 98 H 18 98/70 L 100 Room Air 06/25/23 20:00 92 H 18 96/63 L 100 Room Air 06/25/23 23:00 Room Air 06/25/23 21:00 Room Air 06/25/23 20:00 90 06/25/23 20:00 98.5 F 06/25/23 18:52 Room Air 06/25/23 16:00 90 06/25/23 18:00 96 H 16 105/68 L 100 Room Air 06/25/23 17:00 Room Air 06/25/23 16:00 98.3 F 06/25/23 15:00 Room Air 06/25/23 14:00 88 17 99/68 L 99 Room Air Intake and Output 06/25/23 06/26/23 06/26/23 23:59 07:59 15:59 Intake Total 1434 / 1710 276 / 1710 Output Total 1190 / 5620 1350 / 2630 1280 / 2630 Balance -1190 / -3825 84 / -920 -1004 / -920 Intake: Intake, Total IV Amount 1434 / 1710 276 / 1710 Zinc/Copper/Yariel/Chromic Chl 1434 / 1710 276 / 1710 1 ml Mvi, Adult No.1 with Vit K 10 ml In Aa 4.25%/Calcium/ Lytes/Dex 10% 1,000 ml @ 95 mls /hr IV .[id number] ONE Rx#: [id number] Output: Output, Urine Amount 200 / 230 30 / 230 Output, Urine Amount (Catheter) 150 / 850 700 / 850 [place] 150 / 150 Coto 700 / 700 Output, Gastric Drainage Amount 350 / 600 200 / 200 Right Nare 350 / 600 200 / 200 Output, Drainage Amount 840 / 3570 800 / 1350 550 / 1350 Right Upper Abdomen 840 / 3570 800 / 1350 550 / 1350 Other: Number of Unmeasured Voids 0 1 Weight 61.037 kg Patient Weight 06/26/23 23:59 Weight 61.037 kg Laboratory Results - last 24 hr 06/25/23 16:52: POC Glucose 154 H 06/25/23 21:20: POC Glucose 111 H 06/26/23 05:41: WBC 5.9 D, RBC 3.76 L, Hgb 11.6 L, Hct 35.5 L, MCV 94.5 H, MCH 30.8, MCHC 32.6, RDW 15.0, Plt Count 145, MPV 10.9 H, Neut % (Auto) 79.6, Lymph % (Auto) 11.5, [place] % (Auto) 7.6, Eos % (Auto) 0.9, Baso % (Auto) 0.4, Neut # (Auto) 4.7, Lymph # (Auto) 0.7, [place] # (Auto) 0.4, Eos # (Auto) 0.1, Baso # (Auto) 0.0, Sodium 130 L, Potassium 4.3, Chloride 104, Carbon Dioxide 22, Anion Gap 8.3, BUN 19, Creatinine 0.50 L, Estimated Creat Clear 64, Estimated GFR 167, Est GFR ( Amer) 202, Glucose 128 H, Calcium 7.7 L, Phosphorus 2.4 L, Magnesium 2.0, Total Bilirubin 0.6, AST 55 D, ALT 43 D, Alkaline Phosphatase 81, Ammonia 56 H, Total Protein 4.3 L, Albumin 2.0 L, Globulin 2.3, Albumin/Globulin Ratio 0.9 L, Triglycerides 33, Cholesterol 72 L 06/26/23 06:59: POC Glucose 127 H 06/26/23 11:20: POC Glucose 119 H I & O for Labs for Last 24 Hours: Intake & Output 06/23/23 06/24/23 06/25/23 06/26/23 23:59 23:59 23:59 23:59 Intake Total 1935 / 1935 4964 / 4964 1795 / 1795 1710 / 1710 Output Total 1500 / 1600 650 / 650 5620 / 5620 2630 / 2630 Balance 435 / 335 4314 / 4314 -3825 / -3825 -920 / -920 Weight 64.773 kg 70.806 kg 63.594 kg 61.037 kg Consti
--- NOTE | 2023-06-26 15:29 | DIET.NUTRFU ---
RD reviewed patient with IDT in rounds this AM. Patient continues to receive 100% nutrition via TPN. Labs inidcate low sodium at 131, NS bolus ordered today to correct. Ammonia was also increased possibly d/t cirrhosis with possible ascites. Lactulose given via mucus fistula. Will repeat labs ordered for tomorrow. Todays weight is slightly down at 61kg from 63kg yesterday. Urine output on 06/25 was 1450ml, NG output was 600ml and drainage amount was 3750ml. Will continue to monitor labs.
[2023-06-26 16:08] LABS: POC Glucose,Bedside 106 (70-110)
--- NOTE | 2023-06-26 17:22 | PC.NURSE ---
pt alert and oriented. ls clear t/o. abdomen flat, tender. bowel sounds active. pt has midline incision noted, dressing changed this shift. pt has mick drain x 2 to right upper abdomen with output to both. mick dressing changed this shift. pt has colostomy to right lower quadrant and mucous fistula to left lower abdomen. ostomy bags changed this shift. pt has picc line to right upper arm and dressing was changed this shift. pt did ambulate with assistance x 1 and sat up to the chair today. f/c was removed and awaiting void, Dr. Alba aware. call light w/i reach.
[2023-06-26 22:36] LABS: POC Glucose,Bedside 91 (70-110)
[2023-06-27] VITALS (14 sets, daily range): BP systolic 87–111; BP diastolic 43–75; PULSE 78–90; RESP 18–23; TEMP 36.4–37.1; O2SAT 98–100; BMI 19.3
[2023-06-27 06:01] LABS: Chloride 102 mmol/L (98-107); Potassium 4.3 mmoL/L (3.5-5.1); Sodium 130 mmol/L (136-145)
[2023-06-27 06:03] LABS: Ammonia 66 umol/L (9-30); Blood Urea Nitrogen 20 mg/dl (9-20); Creatinine Clearance Estimated 62 mL/min (50-200); Estimated Glomerular Filt Rate 167 ml/min (>60); GFR (African American) 202 ML/MIN (>60)
[2023-06-27 06:04] LABS: Anion Gap 10.3 mEq/L (5-15); Calcium 7.8 mg/dl (8.4-10.2); Carbon Dioxide 22 mmol/L (22.0-30.0); Glucose 121 mg/dl (74-100); Magnesium 2.1 mg/dl (1.6-2.3)
[2023-06-27 06:18] LABS: INR 1.06 (0.9-1.1); PTT Heparin (inpatient only) 25.8 Seconds (23.6-34.0); Prothrombin Time 11.4 seconds (10.1-12.5)
--- NOTE | 2023-06-27 07:08 | EXP.SURG.PN ---
Subjective Patient reports: no new complaints Narrative: He states that he is feels weak and sore . Exam Data for Last 24 hours Vital signs and Labs for Last 24 Hours: Temp Pulse Resp BP Pulse Ox O2 Del Method O2 Flow Rate 98.5 F 83 18 95/59 L 100 Room Air 3 06/27/23 04:00 06/27/23 06:00 06/26/23 17:53 06/27/23 06:00 06/27/23 06:00 06/27/23 07:00 06/24/23 19:55 Laboratory Results - last 24 hr 06/26/23 06:59: POC Glucose 127 H 06/26/23 11:20: POC Glucose 119 H 06/26/23 16:01: POC Glucose 106 06/26/23 21:42: POC Glucose 91 06/27/23 05:30: PT 11.4, INR 1.06, APTT 25.8, Sodium 130 L, Potassium 4.3, Chloride 102, Carbon Dioxide 22, Anion Gap 10.3, BUN 20, Creatinine 0.50 L, Estimated Creat Clear 62, Estimated GFR 167, Est GFR ( Amer) 202, Glucose 121 H, Calcium 7.8 L, Phosphorus 3.0, Magnesium 2.1, Ammonia 66 H I & O for Last 24 hours: Intake & Output 06/24/23 06/25/23 06/26/23 06/27/23 11:59 11:59 11:59 11:59 Intake Total 2254 / 2254 3600 / 3600 3505 / 3505 1802 / 1802 Output Total 1650 / 1650 1500 / 1850 6650 / 6650 3180 / 3180 Balance 604 / 604 2100 / 1750 -3145 / -3145 -1378 / -1378 Weight 156 lb 1.6 oz 140 lb 3.2 oz 134 lb 9 oz 130 lb 11.2 oz Constitutional Constitutional: no acute distress *Routine Respiratory Exam Respiratory: Absent respiratory distress *Routine Cardiovascular Exam Cardiovascular: Absent tachycardia *Routine Abdominal Exam Comments: Dressings intact. Ostomy pink and viable. Serous fluid within Jamie-Goyal drains. Progress Note: A&P Assessment and plan (1) Free intraperitoneal air: Status: Acute Assessment and plan: No definitive source noted on repeat exploratory laparotomy. 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
[2023-06-27 11:27] LABS: POC Glucose,Bedside 110 (70-110)
--- NOTE | 2023-06-27 12:05 | DIET.NUTRFU ---
RD rounded with IDT today and was reported NG tube clogged, nursing to unclog and start trophic feedings today to determine if can be toleranted. Suspension of possible leak based on the amount of fluid GERMAN drain is receiving. Output recorded yesterday was 1580ml from urine output, gastric output was 400ml and GERMAN drain was 1925. Wt is down at 59.28kg, he has been averaging around 62-63kg during stay. He continues to receive TPN meeting needs. Labs today Na still 130L, received NS yesterday. Ammonia worse today at 66, lactulose edema ordered to bring ammonia levels down. Provider reports patient probably had cirrhosis with ascites prior to sx. Patient is reported to feel more down or depressed today, expected based on health events. Trophic feeds will start after NG unclogged. Osmolite 1.2 at 10ml/hr x12 hours, then increase to 20ml/hr x12 hour to provide 432kcal in 24hours, if tolerated with keep TF at 20ml/hr for a total of 24 hours. Then on 06/29 post morning rounds if tolerating can increase to 30ml/hour. Monitor for distended abdomen, increased nausea and large increase in output. Goal rate to provide 100% needs through NG would be 60ml/hr x24 providing 1728kcal and 119gm protein. Once TF is tolerated will need to taper the TPN to avoid refeeding and volume overload. Will monitor labs and I/O and TF tolerance.
--- NOTE | 2023-06-27 12:17 | PC.NURSE ---
mucus fistula burped at this time.
--- NOTE | 2023-06-27 12:33 | PC.NURSE ---
spoke with Neva Agate Setter who stated to start Osmolite 1.2 at 10 ml's hr for 12 hours. Tube feeds started at this time.
--- NOTE | 2023-06-27 13:38 | EXP.ACUTE.PN ---
Subjective *Date: 06/27/23 *Time: 13:38 Interval history: Patient remains hemodynamically stable and afebrile overnight. Weak on exam this morning. Appears more depressed. Tolerating TPN. Having ascites drainage in GERMAN's. NG still in place. Stable on room air. Clear output from ileostomy. Medical Exam Vital signs and Labs for Last 24 Hours: Vital Signs Temp Pulse Pulse Resp BP Pulse Ox O2 Del Method 06/27/23 12:00 80 06/27/23 12:51 Room Air 06/27/23 08:00 83 06/27/23 12:00 97.6 F 80 18 87/43 L 100 Room Air 06/27/23 11:00 Room Air 06/27/23 10:02 78 18 89/59 L 100 Room Air 06/27/23 09:00 Room Air 06/27/23 08:26 97.5 F L 86 18 90/62 L 99 Room Air 06/27/23 08:00 99 Room Air 06/27/23 04:00 80 06/27/23 05:00 Room Air 06/27/23 04:00 Room Air 06/27/23 00:00 80 06/27/23 00:00 98.8 F 06/27/23 07:00 Room Air 06/27/23 06:00 83 95/59 L 100 Room Air 06/27/23 04:00 98.5 F 06/27/23 03:00 Room Air 06/27/23 00:00 84 105/69 L 98 Room Air 06/26/23 22:00 85 108/68 L 100 Room Air 06/26/23 20:00 97.8 F 90 94/65 L 100 Room Air 06/27/23 01:00 Room Air 06/26/23 23:00 Room Air 06/26/23 21:00 Room Air 06/26/23 20:00 Room Air 06/26/23 18:58 Room Air 06/26/23 17:53 88 18 100/63 L 100 Room Air 06/26/23 16:00 80 06/26/23 16:42 100 Room Air 06/26/23 16:40 Room Air 06/26/23 15:47 98.5 F 06/26/23 15:00 Room Air 06/26/23 13:59 74 18 104/68 L 100 Room Air Intake and Output 06/26/23 06/27/23 06/27/23 23:59 07:59 15:59 Intake Total 483 / 2615 897 / 1422 525 / 1422 Output Total 1025 / 4440 1805 / 2630 825 / 2630 Balance -542 / -1825 -908 / -1208 -300 / -1208 Intake: Intake, Other Amount 897 / 897 Intake, Total IV Amount 483 / 2615 525 / 525 Aa 4.25%/Calcium/Lytes/Dex 10% 525 / 525 1,000 ml @ 95 mls/hr IV . [id number] ONE Rx#:[id number] Fat Emulsions 250 ml @ 60 mls/ 155 / 155 hr IV 1400 FADI Rx#:[id number] Zinc/Copper/Yariel/Chromic Chl 328 / 2460 1 ml Mvi, Adult No.1 with Vit K 10 ml In Aa 4.25%/Calcium/ Lytes/Dex 10% 1,000 ml @ 95 mls /hr IV .[id number] ONE Rx#: [id number] Output: Output, Urine Amount 500 / 730 350 / 750 400 / 750 Output, Gastric Drainage Amount 200 / 705 775 / 1200 425 / 1200 Right Mid Upper Abdomen 275 / 700 425 / 700 Right Nare 200 / 600 500 / 500 Output, Drainage Amount 325 / 2155 680 / 680 Ostomy 120 / 120 Right Upper Abdomen 325 / 2085 560 / 560 mucous fistula 0 / 0 Other: Weight 59.285 kg Patient Weight 06/27/23 23:59 Weight 59.285 kg Laboratory Results - last 24 hr 06/26/23 16:01: POC Glucose 106 06/26/23 21:42: POC Glucose 91 06/27/23 05:30: PT 11.4, INR 1.06, APTT 25.8, Sodium 130 L, Potassium 4.3, Chloride 102, Carbon Dioxide 22, Anion Gap 10.3, BUN 20, Creatinine 0.50 L, Estimated Creat Clear 62, Estimated GFR 167, Est GFR ( Amer) 202, Glucose 121 H, Calcium 7.8 L, Phosphorus 3.0, Magnesium 2.1, Ammonia 66 H 06/27/23 11:20: POC Glucose 110 I & O for Labs for Last 24 Hours: Intake & Output 06/24/23 06/25/23 06/26/23 06/27/23 23:59 23:59 23:59 23:59 Intake Total 4964 / 4964 1795 / 1795 2615 / 2615 1422 / 1422 Output Total 650 / 650 5620 / 5620 3905 / 4440 2630 / 2630 Balance 4314 / 4314 -3825 / -3825 -1290 / -1825 -1208 / -1208 Weight 70.806 kg 63.594 kg 61.037 kg 59.285 kg Constitutional: Present no acute distress, thin and chronically ill appearing Head: Present atraumatic and normocephalic ENT: Present normal exam Comment:: Pterygium bilaterally, NG in place. Neck: Present normal inspection Respiratory: Present normal respiratory effort; Absent rhonchi, wheezes or crackles Cardiac: Present Reg Rate and Rhythm GI: Present soft, tenderness
[2023-06-27 16:41] LABS: POC Glucose,Bedside 106 (70-110)
--- NOTE | 2023-06-27 16:42 | PC.NURSE ---
pt alert and oriented this shift. pt's morale has been down t/o shift. pt hsa slept most of the day. pt has refused to get out of the bed to get to the chair or to ambulate which is a change from yesterday. pt's lung sounds remain clear. pt abdomen flat, nondistended, bowel sounds active. pt has reported pain to his abdomen which he was medicated per JAN. GERMAN drains continue to have large amount of output. pts mucus fistula has been filling with air. pt was started on Osmolite 1.2 at 10 ml's an hour for 12 hours hten to advance to 20 mls if tolerated. call light w/i reach.
--- NOTE | 2023-06-27 20:32 | PC.NURSE ---
mucous fistula noted to have stool, compared to last time i cared for this pt. Spoke with Dr Smith to ensure this was OK. states this is OK, and normal to have stool in mucous fistula.
[2023-06-27 21:25] LABS: POC Glucose,Bedside 105 (70-110)
[2023-06-28] VITALS (11 sets, daily range): BP systolic 86–143; BP diastolic 45–75; PULSE 73–90; RESP 12–21; TEMP 36.7–37.8; O2SAT 96–100; BMI 19.3
--- NOTE | 2023-06-28 00:18 | PC.NURSE ---
Gastric residual 30 ml. Tube feeds increased to 20ml / hr at this time.
--- NOTE | 2023-06-28 03:53 | PC.NURSE ---
0344 BP 69/50. Levophed titrated to 2.5 mcg/min
--- NOTE | 2023-06-28 05:18 | PC.NURSE ---
Addendum entered by Jessie Germain RN 06/28/23 05:31: Pt medicated for temp 100.0. 10 ml drained from colostomy this shift. tpn infusing @95 ml/hr. Pt remains on RA, tolerating well. Original Note: pt has not c/o pain or nausea this shift. GERMAN drains emptied multiple times this shift. Tube feedings increased to 20ml/hr this shift. Residuals have been 30-55. 465ml drained from GERMAN #1 and 545 ml drained from GERMAN#2 so far this shift.
[2023-06-28 05:36] LABS: POC Glucose,Bedside 110 (70-110)
[2023-06-28 06:19] LABS: Basophils % 0.4 % (0.1-2.0); Eosinophils % 0.7 % (0.1-12.0); Hematocrit 35.5 % (42.0-52.0); Hemoglobin 11.8 g/dL (14.1-18.0); Lymphocytes # 0.7 K/mm3 (0.7-4.5); Lymphocytes % 10.9 % (10-50); Mean Corpuscular HGB Conc 33.3 g/dL (31.8-35.4); Mean Corpuscular Hemoglobin 30.8 pg (27.0-31.2); Mean Corpuscular Volume 92.7 fl (80-94); Mean Platelet Volume 10.5 fl (7.4-10.4); Monocytes # 0.5 K/mm3 (0.1-1.0); Monocytes % 8.6 % (1.7-9.3); Neutrophils # 4.8 K/mm3 (1.8-7.8); Neutrophils % 79.5 % (37.0-80.0); Platelet Count 134 K/mm3 (142-424); Red Blood Count 3.83 M/mm3 (4.60-6.20); Red Cell Distribution Width 15.1 % (11.5-17.5)
[2023-06-28 06:24] LABS: Chloride 101 mmol/L (98-107)
[2023-06-28 06:25] LABS: Potassium 4.3 mmoL/L (3.5-5.1); Sodium 128 mmol/L (136-145)
[2023-06-28 06:27] LABS: Blood Urea Nitrogen 17 mg/dl (9-20); Creatinine Clearance Estimated 62 mL/min (50-200); Estimated Glomerular Filt Rate 135 ml/min (>60); GFR (African American) 164 ML/MIN (>60)
[2023-06-28 06:28] LABS: Anion Gap 10.3 mEq/L (5-15); Calcium 7.8 mg/dl (8.4-10.2); Carbon Dioxide 21 mmol/L (22.0-30.0); Glucose 128 mg/dl (74-100); Phosphorous 2.8 mg/dl (2.5-4.5)
--- NOTE | 2023-06-28 06:56 | PC.NURSE ---
BPs 80's/50's . MRI ASSISTANT Agata notified. States she will order ns bolus at this time.
--- NOTE | 2023-06-28 08:51 | P.PN_ITS ---
Subjective Patient reports: no new complaints Narrative: Patient seems to be tolerating trophic tube feeds. No obvious change in quality of Jamie-Goyal drain output noted per nursing. Exam Data for Last 24 hours Vital signs and Labs for Last 24 Hours: Temp Pulse Resp BP Pulse Ox O2 Del Method O2 Flow Rate 98.5 F 82 12 86/61 L 97 Room Air 3 06/28/23 08:00 06/28/23 06:00 06/28/23 06:00 06/28/23 06:00 06/28/23 06:00 06/28/23 07:00 06/24/23 19:55 Laboratory Results - last 24 hr 06/27/23 11:20: POC Glucose 110 06/27/23 16:31: POC Glucose 106 06/27/23 21:18: POC Glucose 105 06/28/23 05:24: POC Glucose 110 06/28/23 05:43: WBC 6.0, RBC 3.83 L, Hgb 11.8 L, Hct 35.5 L, MCV 92.7, MCH 30.8, MCHC 33.3, RDW 15.1, Plt Count 134 L, MPV 10.5 H, Neut % (Auto) 79.5, Lymph % (Auto) 10.9, [place] % (Auto) 8.6, Eos % (Auto) 0.7, Baso % (Auto) 0.4, Neut # (Auto) 4.8, Lymph # (Auto) 0.7, [place] # (Auto) 0.5, Eos # (Auto) 0.0, Baso # (Auto) 0.0, Sodium 128 L, Potassium 4.3, Chloride 101, Carbon Dioxide 21 L, Anion Gap 10.3, BUN 17, Creatinine 0.60 L, Estimated Creat Clear 62, Estimated GFR 135, Est GFR ( Amer) 164, Glucose 128 H, Calcium 7.8 L, Phosphorus 2.8, Magnesium 2.0 I & O for Last 24 hours: Intake & Output 06/25/23 06/26/23 06/27/23 06/28/23 11:59 11:59 11:59 11:59 Intake Total 3600 / 3600 3505 / 3505 1802 / 1802 3484 / 3484 Output Total 1500 / 1850 6650 / 6650 3405 / 3405 3020 / 3020 Balance 2100 / 1750 -3145 / -3145 -1603 / -1603 464 / 464 Weight 140 lb 3.2 oz 134 lb 9 oz 130 lb 11.2 oz 130 lb 6.4 oz Constitutional Constitutional: no acute distress *Routine Respiratory Exam Respiratory: Absent respiratory distress *Routine Cardiovascular Exam Cardiovascular: Absent tachycardia *Routine Abdominal Exam Comments: Midline incision without obvious sign of infection. Ostomy mucous fistula remained viable. Jamie-Goyal drainage remains unchanged (serous/ascites). Progress Note: A&P Assessment and plan (1) Free intraperitoneal air: Status: Acute Assessment and plan: No definitive source noted on repeat exploratory laparotomy. 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
--- NOTE | 2023-06-28 10:24 | CT_ITS ---
FINAL REPORT TECHNIQUE: Pre-and postcontrast images of the abdomen were performed by computed tomography. Extensive 3-D reconstruction images were performed. A CTA was performed. This study was performed with techniques to keep radiation doses as low as reasonably achievable (ALARA). Individualized dose reduction techniques using automated exposure control or adjustment of mA and/or kV according to the patient''s size were employed. CLINICAL HISTORY: eval for portal vein thrombosis COMPARISON: CT abdomen and pelvis 06/24/2023 FINDINGS: ABDOMEN: There is scarring at the right lung base. Surgical drains are noted in the right and left upper quadrants. NG tube is present in the stomach. There is edema throughout the mesentery. CTA: The abdominal aorta is proper caliber. The celiac and SMA are patent. The CODY is patent. The hepatic arteries are patent. No portal venous phase imaging was obtained. Portal vein patency cannot be assessed. What appears to be a small amount of extraluminal contrast is seen in the hemiabdomen on images 33 through 40 of series 3. IMPRESSION: Postoperative changes with surgical drains. Massive mesenteric edema. Questionable extraluminal contrast in the right hemiabdomen. No portal venous phase imaging obtained. Patency of the portal vein cannot be assessed. Reviewed, Interpreted and Dictated by Viet Pop MD Transcribed by Geovanna Aguliera Authenticated and [facility]
--- NOTE | 2023-06-28 10:55 | PC.NURSE ---
courtesy tech note: pt sleeping during round. call light within reach.
[2023-06-28 11:39] LABS: POC Glucose,Bedside 115 (70-110)
--- NOTE | 2023-06-28 12:49 | EXP.ACUTE.PN ---
Subjective *Date: 06/28/23 *Time: 19:24 Interval history: Patient remains hemodynamically stable and afebrile overnight. Weak on exam this morning. Still appearing depressed. Tolerating TPN as well as initiation of trophic tube feeds. Having ascites drainage in GERMAN's. NG still in place. Stable on room air. Clear output from ileostomy. Medical Exam Vital signs and Labs for Last 24 Hours: Vital Signs Temp Pulse Pulse Resp BP Pulse Ox O2 Del Method 06/28/23 12:00 98.1 F 80 17 95/67 L 100 Room Air 06/28/23 08:00 75 06/28/23 11:17 98.0 F 73 17 143/45 H 96 Room Air 06/28/23 08:00 98.5 F 06/28/23 07:00 Room Air 06/28/23 06:00 82 12 86/61 L 97 Room Air 06/28/23 05:00 Room Air 06/28/23 04:00 80 06/28/23 04:00 100.0 F H 88 13 95/65 L 99 Room Air 06/28/23 04:00 Room Air 06/28/23 03:00 Room Air 06/28/23 02:00 85 21 90/53 L 100 Room Air 06/28/23 01:00 Room Air 06/28/23 00:00 80 06/28/23 00:00 99.3 F 89 20 104/75 L 100 Room Air 06/27/23 22:00 85 23 110/75 100 Room Air 06/27/23 23:00 Room Air 06/27/23 20:00 98.3 F 80 20 104/68 L 100 Room Air 06/27/23 20:00 90 06/27/23 20:00 Room Air 06/27/23 21:00 Room Air 06/27/23 18:38 Room Air 06/27/23 18:03 82 18 111/69 100 Room Air 06/27/23 16:49 Room Air 06/27/23 16:00 90 06/27/23 15:43 98 Room Air 06/27/23 16:09 98.0 F 80 18 94/56 L 100 Room Air 06/27/23 14:43 Room Air 06/27/23 13:50 80 18 91/63 L 100 Room Air 06/27/23 12:51 Room Air Intake and Output 06/27/23 06/28/23 06/28/23 23:59 07:59 15:59 Intake Total 1944 / 3366 1015 / 1015 Output Total 1300 / 4055 995 / 1515 520 / 1515 Balance 644 / -689 20 / -500 -520 / -500 Intake: Intake, Oral Amount 0 / 0 Intake, Tube Feeding Amount 63 / 63 126 / 126 Intake, Total IV Amount 1881 / 2406 889 / 889 Aa 4.25%/Calcium/Lytes/Dex 10% 889 / 889 1,000 ml @ 95 mls/hr IV . [id number] ONE Rx#:[id number] Aa 4.25%/Calcium/Lytes/Dex 10% 636 / 1161 1,000 ml @ 95 mls/hr IV . [id number] ONE Rx#:[id number] Fat Emulsions 250 ml @ 60 mls/ 245 / 245 hr IV 1400 FADI Rx#:[id number] Lactated Ringers 1000ML 500 ml 1000 / 1000 @ 250 mls/hr IV .Q2H ONE Rx#: [id number] Output: Output, Urine Amount 400 / 1150 525 / 825 300 / 825 Output, Gastric Drainage Amount 275 / 1600 Right Mid Upper Abdomen 275 / 1100 Output, Drainage Amount 625 / 1305 470 / 690 220 / 690 Ostomy 10 / 10 Right Upper Abdomen 625 / 1185 460 / 680 220 / 680 Other: Number of Unmeasured Voids 0 Number of Bowel Movements 1 Weight 59.148 kg 61.745 kg Patient Weight 06/28/23 23:59 Weight 61.745 kg Laboratory Results - last 24 hr 06/27/23 16:31: POC Glucose 106 06/27/23 21:18: POC Glucose 105 06/28/23 05:24: POC Glucose 110 06/28/23 05:43: WBC 6.0, RBC 3.83 L, Hgb 11.8 L, Hct 35.5 L, MCV 92.7, MCH 30.8, MCHC 33.3, RDW 15.1, Plt Count 134 L, MPV 10.5 H, Neut % (Auto) 79.5, Lymph % (Auto) 10.9, [place] % (Auto) 8.6, Eos % (Auto) 0.7, Baso % (Auto) 0.4, Neut # (Auto) 4.8, Lymph # (Auto) 0.7, [place] # (Auto) 0.5, Eos # (Auto) 0.0, Baso # (Auto) 0.0, Sodium 128 L, Potassium 4.3, Chloride 101, Carbon Dioxide 21 L, Anion Gap 10.3, BUN 17, Creatinine 0.60 L, Estimated Creat Clear 62, Estimated GFR 135, Est GFR ( Amer) 164, Glucose 128 H, Calcium 7.8 L, Phosphorus 2.8, Magnesium 2.0 06/28/23 11:32: POC Glucose 115 H I & O for Labs for Last 24 Hours: Intake & Output 06/25/23 06/26/23 06/27/23 06/28/23 23:59 23:59 23:59 23:59 Intake Total 1795 / 1795 2615 / 2615 3366 / 3366 1015 / 1015 Output Total 5620 / 5620 3905 / 4440 4055 / 4055 1515 / 1515 Balance -3825 / -3825 -1290 / -1825 -689 / -689 -500 / -500 Weight 63.594 kg 61.037 kg 59.285 kg 61.745 kg Constitutional: Present no
[2023-06-28 16:36] LABS: POC Glucose,Bedside 116 (70-110)
--- NOTE | 2023-06-28 18:11 | PC.NURSE ---
Pt has slept at intervals. No complaints stated. GERMAN drains continue to drain with large amount of yellow liquid noted in both #1 and #2. See output. Ostomy and mucous fistula with appliances intact. Pt has used urinal. Given Bed bath by staff. Has been up to the chair today. VSS. Call light within reach.
[2023-06-28 21:38] LABS: POC Glucose,Bedside 133 (70-110)
[2023-06-29] VITALS (8 sets, daily range): BP systolic 83–111; BP diastolic 42–60; PULSE 79–87; RESP 18–21; TEMP 36.7–38.1; O2SAT 97–100; BMI 21.3
--- NOTE | 2023-06-29 06:59 | XR_ITS ---
PROCEDURE INFORMATION: Exam: XR Chest Exam date and time: 06/29/2023 8:13 AM Age: 63 years old Clinical indication: Fever TECHNIQUE: Imaging protocol: Radiologic exam of the chest. Views: 1 view. COMPARISON: CR XR CHEST PORTABLE PICC PLAC 06/19/2023 2:52 PM FINDINGS: Tubes, catheters and devices: Surgical drain in the right upper quadrant. Feeding tube and central venous catheter again demonstrated. Lungs: Hypoinflation, without significant airspace disease. Pleural spaces: Nonvisualization of the right costophrenic angle. Heart/Mediastinum: Normal configuration of the heart. Bones/joints: Surgical hardware in the incompletely visualized proximal right humerus. Osteopenia. IMPRESSION: 1. Hypoinflation, without significant airspace disease. 2. Nonspecific radiolucency overlying the inferior right hemithorax.
[2023-06-29 07:09] LABS: Basophils % 0.3 % (0.1-2.0); Eosinophils # 0.1 K/mm3 (0.0-0.4); Eosinophils % 0.8 % (0.1-12.0); Hematocrit 36.8 % (42.0-52.0); Hemoglobin 12.1 g/dL (14.1-18.0); Lymphocytes # 0.6 K/mm3 (0.7-4.5); Lymphocytes % 9.3 % (10-50); Mean Corpuscular HGB Conc 32.9 g/dL (31.8-35.4); Mean Corpuscular Volume 94.3 fl (80-94); Mean Platelet Volume 10.8 fl (7.4-10.4); Monocytes # 0.4 K/mm3 (0.1-1.0); Neutrophils # 5.1 K/mm3 (1.8-7.8); Neutrophils % 82.6 % (37.0-80.0); Platelet Count 144 K/mm3 (142-424); Red Cell Distribution Width 15.1 % (11.5-17.5); White Blood Count 6.2 K/mm3 (4.8-10.8)
[2023-06-29 07:15] LABS: Chloride 100 mmol/L (98-107); Potassium 4.4 mmoL/L (3.5-5.1); Sodium 127 mmol/L (136-145)
--- NOTE | 2023-06-29 07:16 | PC.NURSE ---
264ML FOR BLADDER SCAN
[2023-06-29 07:18] LABS: Alanine Aminotransferase 109 U/L (12-78); Albumin Level 2.2 g/dl (3.5-5.0); Albumin/Globulin Ratio 0.8 (1.1-1.8); Alkaline Phosphatase 199 U/L (38-126); Ammonia 52 umol/L (9-30); Anion Gap 10.4 mEq/L (5-15); Aspartate Amino Transferase 222 U/L (17-59); Bilirubin,Total 1.1 mg/dl (0.2-1.3); Blood Urea Nitrogen 22 mg/dl (9-20); Calcium 8.1 mg/dl (8.4-10.2); Carbon Dioxide 21 mmol/L (22.0-30.0); Creatinine Clearance Estimated 59 mL/min (50-200); Estimated Glomerular Filt Rate 135 ml/min (>60); GFR (African American) 164 ML/MIN (>60); Globulin 2.9 g/dL (1.3-3.2); Glucose 119 mg/dl (74-100); Total Protein,Serum 5.1 g/dl (6.3-8.2)
[2023-06-29 07:20] LABS: Magnesium 2.2 mg/dl (1.6-2.3); Phosphorous 2.9 mg/dl (2.5-4.5)
--- NOTE | 2023-06-29 12:05 | EXP.SURG.PN ---
Subjective Narrative: The patient remains weak and is somewhat slow to answer questions Exam Data for Last 24 hours Vital signs and Labs for Last 24 Hours: Temp Pulse Resp BP Pulse Ox O2 Del Method O2 Flow Rate 99.0 F 79 21 83/56 L 99 Room Air 3 06/29/23 11:48 06/29/23 11:48 06/29/23 11:48 06/29/23 11:48 06/29/23 11:48 06/29/23 11:48 06/24/23 19:55 Laboratory Results - last 24 hr 06/28/23 16:24: POC Glucose 116 H 06/28/23 21:32: POC Glucose 133 H 06/29/23 06:39: WBC 6.2, RBC 3.90 L, Hgb 12.1 L, Hct 36.8 L, MCV 94.3 H, MCH 31.0, MCHC 32.9, RDW 15.1, Plt Count 144, MPV 10.8 H, Neut % (Auto) 82.6 H, Lymph % (Auto) 9.3 L, [place] % (Auto) 7.0, Eos % (Auto) 0.8, Baso % (Auto) 0.3, Neut # (Auto) 5.1, Lymph # (Auto) 0.6 L, [place] # (Auto) 0.4, Eos # (Auto) 0.1, Baso # (Auto) 0.0, Sodium 127 L, Potassium 4.4, Chloride 100, Carbon Dioxide 21 L, Anion Gap 10.4, BUN 22 H D, Creatinine 0.60 L, Estimated Creat Clear 59, Estimated GFR 135, Est GFR ( Amer) 164, Glucose 119 H, Lactate 1.0, Calcium 8.1 L, Phosphorus 2.9, Magnesium 2.2, Total Bilirubin 1.1, AST 222 H, ALT 109 H, Alkaline Phosphatase 199 H, Ammonia 52 H, Total Protein 5.1 L, Albumin 2.2 L, Globulin 2.9, Albumin/Globulin Ratio 0.8 L I & O for Last 24 hours: Intake & Output 06/27/23 06/28/23 06/29/23 06/30/23 11:59 11:59 11:59 11:59 Intake Total 1802 / 1802 3484 / 3484 1458 / 1458 Output Total 3405 / 3405 3540 / 3540 3460 / 3460 Balance -1603 / -1603 -56 / -56 -2001 / -2001 Weight 130 lb 11.2 oz 136 lb 2 oz 125 lb Constitutional Constitutional: chronically ill appearing *Routine Respiratory Exam Respiratory: Absent respiratory distress *Routine Cardiovascular Exam Cardiovascular: Absent tachycardia *Routine Abdominal Exam Comments: Midline incision healing without sign of infection. Ostomy remains pink and viable. GERMAN drainage remains serous in quality Progress Note: A&P Assessment and plan (1) Free intraperitoneal air: Status: Acute Assessment and plan: No obvious sign of injury noted on repeat exploration Discussed the possibility of adding blue dye to tube feeds with the primary service. As the patient may require transfer...further evaluation may be deferred to tertiary facility. Repeat exploration at this facility is not a viable option given the patient's comorbid conditions. (2) Intra-abdominal fluid: Status: Acute Assessment and plan: Possible ascites secondary to cirrhosis; however, ureteral injury does remain a possibility. Radiographic and laboratory evaluation to evaluate for possible ureteral injury discussed with primary service. As the patient may ultimately require transfer...further evaluation may be deferred to a tertiary facility. 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
[2023-06-29 12:26] LABS: POC Glucose,Bedside 128 (70-110)
--- NOTE | 2023-06-29 13:40 | XR_ITS ---
PROCEDURE INFORMATION: Exam: XR Urography With Contrast Exam date and time: 06/29/2023 2:31 PM Age: 63 years old Clinical indication: Pain: Continued pain following bowel surgery and continue fluid, checking for ureter leak; Prior surgery; Surgery date: Post-operative (0-2 days); Surgery type: Bowel resection; Additional info: Urinary leak? TECHNIQUE: Imaging protocol: XR urography with intravenous contrast, with or without tomography. COMPARISON: CT ABDOMEN PELVIS W CON 06/24/2023 7:18 AM FINDINGS: Precontrast image: Skin josé luis to the left of midline. Surgical drains and feeding tube. Bowel dilatation, presumably in the basis of ileus, along with prominent stool. Degenerative change. Postcontrast images: Normal bilateral renal morphology. Mild asymmetry in caliber of the pelvicaliceal systems (right greater than left), without jarad hydronephrosis. Fractional opacification of the ureters. No gross evidence for extravasation from the opacified collecting systems. Note that intravenous pyelography is insensitive in the evaluation urinary extravasation, which is better evaluated with cystoscopy and retrograde pyelography. Nondistended bladder. IMPRESSION: 1. No gross evidence for extravasation from the opacified collecting systems. 2. Note that intravenous pyelography is insensitive in the evaluation of urinary extravasation, which is better evaluated with cystoscopy and retrograde pyelography.
--- NOTE | 2023-06-29 13:44 | EXP.ACUTE.PN ---
Subjective *Date: 06/29/23 *Time: 14:05 Interval history: Blood pressure soft but not frankly hypotensive. Did have fever overnight to 100.5. Blood cultures obtained, urine culture obtained. No shortness of breath or cough but chest x-ray obtained with no acute findings. Still appearing depressed. Tolerating TPN as well as advancement of tube feeds. Having ascites drainage in GERMAN's. NG still in place. Stable on room air. Clear output from ileostomy. Medical Exam Vital signs and Labs for Last 24 Hours: Vital Signs Temp Pulse Pulse Resp BP BP Pulse Ox 06/29/23 13:00 06/29/23 11:48 99.0 F 79 21 83/56 L 99 06/29/23 10:48 06/29/23 09:00 06/29/23 08:00 06/29/23 08:00 99.1 F 80 18 90/60 L 98 06/29/23 07:35 90/60 L 06/29/23 07:00 06/29/23 05:00 06/29/23 03:00 06/29/23 01:00 06/29/23 06:49 98.0 F 86/42 L 06/29/23 04:00 100.5 F H 87 18 89/57 L 98 06/28/23 20:00 90 06/28/23 23:00 06/28/23 21:00 06/29/23 00:00 98.0 F 80 19 98/58 L 99 06/28/23 20:00 06/28/23 20:00 98.1 F 89 19 101/67 L 99 06/28/23 18:28 06/28/23 16:00 80 06/28/23 17:00 06/28/23 15:56 98.6 F 86 17 104/66 L 99 06/28/23 15:00 O2 Del Method 06/29/23 13:00 Room Air 06/29/23 11:48 Room Air 06/29/23 10:48 Room Air 06/29/23 09:00 Room Air 06/29/23 08:00 Room Air 06/29/23 08:00 Room Air 06/29/23 07:35 06/29/23 07:00 Room Air 06/29/23 05:00 Room Air 06/29/23 03:00 Room Air 06/29/23 01:00 Room Air 06/29/23 06:49 06/29/23 04:00 Room Air 06/28/23 20:00 06/28/23 23:00 Room Air 06/28/23 21:00 Room Air 06/29/23 00:00 Room Air 06/28/23 20:00 Room Air 06/28/23 20:00 Room Air 06/28/23 18:28 Room Air 06/28/23 16:00 06/28/23 17:00 Room Air 06/28/23 15:56 Room Air 06/28/23 15:00 Room Air Intake and Output 06/28/23 06/29/23 06/29/23 23:59 07:59 15:59 Intake Total 377 / 2473 529 / 529 Output Total 710 / 4035 1300 / 1860 560 / 1860 Balance -333 / -1562 -1300 / -1331 -31 / -1331 Intake: Intake, Oral Amount 0 / 0 Intake, Total IV Amount 377 / 2347 529 / 529 Aa 4.25%/Calcium/Lytes/Dex 10% 230 / 429 1,000 ml @ 95 mls/hr IV . [id number] ONE Rx#:[id number] Fat Emulsions 250 ml @ 60 mls/ 147 / 1029 hr IV 1400 FADI Rx#:[id number] Zinc/Copper/Yariel/Chromic Chl 529 / 529 1 ml Mvi, Adult No.1 with Vit K 10 ml In Aa 4.25%/Calcium/ Lytes/Dex 10% 1,000 ml @ 95 mls /hr IV .[id number] ONE Rx#: [id number] Output: Output, Urine Amount 300 / 1525 0 / 0 Output, Drainage Amount 410 / 2510 1300 / 1860 560 / 1860 GERMAN # 2 100 / 580 400 / 610 210 / 610 GERMAN #1 160 / 890 700 / 1050 350 / 1050 Ostomy 150 / 360 200 / 200 Other: Number of Unmeasured Voids 0 Number of Bowel Movements 2 1 Weight 56.699 kg Patient Weight 06/29/23 23:59 Weight 56.699 kg Laboratory Results - last 24 hr 06/28/23 16:24: POC Glucose 116 H 06/28/23 21:32: POC Glucose 133 H 06/29/23 06:39: WBC 6.2, RBC 3.90 L, Hgb 12.1 L, Hct 36.8 L, MCV 94.3 H, MCH 31.0, MCHC 32.9, RDW 15.1, Plt Count 144, MPV 10.8 H, Neut % (Auto) 82.6 H, Lymph % (Auto) 9.3 L, [place] % (Auto) 7.0, Eos % (Auto) 0.8, Baso % (Auto) 0.3, Neut # (Auto) 5.1, Lymph # (Auto) 0.6 L, [place] # (Auto) 0.4, Eos # (Auto) 0.1, Baso # (Auto) 0.0, Sodium 127 L, Potassium 4.4, Chloride 100, Carbon Dioxide 21 L, Anion Gap 10.4, BUN 22 H D, Creatinine 0.60 L, Estimated Creat Clear 59, Estimated GFR 135, Est GFR ( Amer) 164, Glucose 119 H, Lactate 1.0, Calcium 8.1 L, Phosphorus 2.9, Magnesium 2.2, Total Bilirubin 1.1, AST 222 H, ALT 109 H, Alkaline Phosphatase 199 H, Ammonia 52 H, Total Protein 5.1 L, Albumin 2.2 L, Globulin 2.9, Albumin/Globulin Ratio 0.8 L 06/29/23 12:14: POC Glucose 128 H I & O for Labs for Last 24 Hours: Intake & Outp
--- NOTE | 2023-06-29 14:09 | PC.NURSE ---
Left message to obtain consent for LEIDA PHILIPPE.
--- NOTE | 2023-06-29 16:23 | PC.NURSE ---
IVP KUB obtained. Pt tolerated well. Specimen obtained from GERMAN Drain. Sent to lab. Tube feeds increased to 30 ml this shift. Residuals have been no higher than 10 ml this shift. TPN decreased to 50 ml via pharmacy and order. Purewick placed on pt. Turned Q 2 hr. Call light within reach.
[2023-06-29 16:41] LABS: POC Glucose,Bedside 116 (70-110)
[2023-06-29 17:08] LABS: Microscopic, Urine URINE MICROSCOPIC (MICROSCOPIC)
[2023-06-29 20:20] LABS: Appearance,Urine SL CLOUDY (Clear); Bilirubin,Urine Negative (Negative); Blood, Urine 3+ (Negative); Color,Urine YELLOW (Yellow); Glucose,Urine (UA) 1+ (Negative); Ketones,Urine Negative (Negative); Leukocyte Esterase,Urine Negative (Negative); Nitrate,Urine Negative (Negative); Protein,Urine 3+ (Negative); Urobilinogen,Urine 0.2 EU/dl (0.2)
[2023-06-29 20:49] LABS: RBC,Urine 50-100 #/hpf (0-3)
[2023-06-29 21:38] LABS: POC Glucose,Bedside 120 (70-110)
[2023-06-30] VITALS (41 sets, daily range): BP systolic 57–113; BP diastolic 31–70; PULSE 67–120; RESP 15–24; TEMP 35.9–38.8; O2SAT 97–100; BMI 21.2
--- NOTE | 2023-06-30 05:12 | PC.NURSE ---
Patient has been in pain and has been nausea most of the night. RN was unable to increase tube feeds. RN did decrease tube feed to 25ml/hr and patient tolerated it better. Urine in a dark mehnaz in color. GERMAN drains are a pale yellow. Ileostomy is draining a light cisse. Patient has been turned every 2hrs or when patient requests. No other issues have been noted. CATH LAB made aware of pain issues, and low BPs.
[2023-06-30 07:25] LABS: Ammonia < 9 umol/L (9-30)
[2023-06-30 07:27] LABS: Chloride 100 mmol/L (98-107); Potassium 5.1 mmoL/L (3.5-5.1); Sodium 126 mmol/L (136-145)
[2023-06-30 07:30] LABS: Alanine Aminotransferase 197 U/L (12-78); Albumin Level 2.3 g/dl (3.5-5.0); Albumin/Globulin Ratio 0.7 (1.1-1.8); Alkaline Phosphatase 287 U/L (38-126); Anion Gap 15.1 mEq/L (5-15); Aspartate Amino Transferase 538 U/L (17-59); Bilirubin,Total 0.8 mg/dl (0.2-1.3); Blood Urea Nitrogen 26 mg/dl (9-20); Calcium 8.2 mg/dl (8.4-10.2); Carbon Dioxide 16 mmol/L (22.0-30.0); Creatinine Clearance Estimated 59 mL/min (50-200); Estimated Glomerular Filt Rate 113 ml/min (>60); GFR (African American) 137 ML/MIN (>60); Globulin 3.1 g/dL (1.3-3.2); Glucose 126 mg/dl (74-100); Total Protein,Serum 5.4 g/dl (6.3-8.2)
[2023-06-30 07:34] LABS: Magnesium 2.3 mg/dl (1.6-2.3); Phosphorous 3.5 mg/dl (2.5-4.5)
--- NOTE | 2023-06-30 08:25 | EXP.SURG.PN ---
Subjective Narrative: The patient remains weak. He states that he is sore everywhere . Exam Data for Last 24 hours Vital signs and Labs for Last 24 Hours: Temp Pulse Resp BP Pulse Ox O2 Del Method O2 Flow Rate 101.9 F H 85 24 92/70 L 99 Room Air 3 06/30/23 08:00 06/30/23 08:00 06/30/23 08:00 06/30/23 08:00 06/30/23 08:00 06/30/23 08:00 06/24/23 19:55 Laboratory Results - last 24 hr 06/29/23 12:14: POC Glucose 128 H 06/29/23 16:15: Urine Color Yellow, Urine Appearance Sl cloudy, Urine pH 8.0, Ur Specific [place] 1.020, Urine Protein 3+, Urine Glucose (UA) 1+, Urine Ketones Negative, Urine Blood 3+, Urine Nitrate Negative, Urine Bilirubin Negative, Urine Urobilinogen 0.2, Ur Leukocyte Esterase Negative, Urine RBC 50-100, Urine WBC None, Ur Squamous Epith Cells None, Urine Bacteria None 06/29/23 16:22: POC Glucose 116 H 06/29/23 21:25: POC Glucose 120 H 06/30/23 07:04: Sodium 126 L, Potassium 5.1, Chloride 100, Carbon Dioxide 16 L, Anion Gap 15.1 H, BUN 26 H, Creatinine 0.70, Estimated Creat Clear 59, Estimated GFR 113, Est GFR ( Amer) 137, Glucose 126 H, Calcium 8.2 L, Phosphorus 3.5, Magnesium 2.3, Total Bilirubin 0.8, AST 538 H* D, ALT 197 H D, Alkaline Phosphatase 287 H, Ammonia < 9 L, Total Protein 5.4 L, Albumin 2.3 L, Globulin 3.1, Albumin/Globulin Ratio 0.7 L I & O for Last 24 hours: Intake & Output 06/27/23 06/28/23 06/29/23 06/30/23 11:59 11:59 11:59 11:59 Intake Total 1802 / 1802 3484 / 3484 1458 / 1458 1716 / 1716 Output Total 3405 / 3405 3540 / 3540 3460 / 3460 2320 / 2320 Balance -1603 / -1603 -56 / -56 -2001 / -2001 -604 / -604 Weight 130 lb 11.2 oz 136 lb 2 oz 125 lb 124 lb Constitutional Constitutional: chronically ill appearing *Routine Respiratory Exam Respiratory: Absent respiratory distress *Routine Cardiovascular Exam Cardiovascular: Absent tachycardia *Routine Abdominal Exam Comments: Midline incision healing without sign of infection. Ostomy remains pink and viable. GERMAN drainage remains serous in quality Progress Note: A&P Assessment and plan (1) Transverse colon volvulus: Status: Acute (2) Intra-abdominal fluid: Status: Acute Assessment and plan: Possible ascites secondary to cirrhosis; however, ureteral injury does remain a possibility. No definitive evidence of leak noted on limited KUB/IVP yesterday. Laboratory evaluation of serous fluid (creatinine, etc.) if he remains at this facility. As there are plans for transfer to tertiary center...further evaluation may be deferred to the accepting facility. (3) Protein calorie malnutrition: Status: Acute (4) Cecal volvulus: Status: Acute (5) History of seizure: Status: Acute (6) Hypokalemia: Status: Acute (7) Hyperammonemia: Status: Acute (8) Cirrhosis: Status: Acute (9) Hypoalbuminemia: Status: Acute (10) Free intraperitoneal air: Status: Acute Assessment and plan: No obvious sign of injury noted on repeat exploration As there are plans for transfer to a tertiary center...further evaluation deferred to accepting facility. Repeat exploration at this facility is not a viable option given the patient's comorbid conditions.
[2023-06-30 08:45] LABS: Basophils % 0.5 % (0.1-2.0); Eosinophils # 0.1 K/mm3 (0.0-0.4); Eosinophils % 0.7 % (0.1-12.0); Hematocrit 39.5 % (42.0-52.0); Hemoglobin 12.8 g/dL (14.1-18.0); Lymphocytes # 0.5 K/mm3 (0.7-4.5); Lymphocytes % 6.7 % (10-50); Mean Corpuscular HGB Conc 32.4 g/dL (31.8-35.4); Mean Corpuscular Hemoglobin 31.5 pg (27.0-31.2); Mean Corpuscular Volume 97.4 fl (80-94); Mean Platelet Volume 10.9 fl (7.4-10.4); Monocytes # 0.6 K/mm3 (0.1-1.0); Monocytes % 7.1 % (1.7-9.3); Neutrophils # 6.7 K/mm3 (1.8-7.8); Neutrophils % 85.1 % (37.0-80.0); Platelet Count 132 K/mm3 (142-424); Red Blood Count 4.05 M/mm3 (4.60-6.20); Red Cell Distribution Width 15.4 % (11.5-17.5); White Blood Count 7.9 K/mm3 (4.8-10.8)
[2023-06-30 08:46] LABS: MANUAL DIFFERENTIAL MANUAL DIFFERENTIAL (MANUAL DIFF)
[2023-06-30 09:11] LABS: Lactic Acid 2.1 mmol/L (0.7-2.1)
[2023-06-30 09:15] LABS: Lymphocytes % 10 % (10-50); Monocytes % 6 % (2-9); Neutrophils % 84 % (42-76); Platelet Estimate Slight Decrease; RBC Morphology Normal; Total Cells Counted 100
--- NOTE | 2023-06-30 11:38 | PC.NURSE ---
Tube feeds increased to 40 ml/hr. TPN titrated to 25 ml/hr.
--- NOTE | 2023-06-30 11:50 | PC.NURSE ---
Spoke with Lynn in pharmacy. TPN bag is good for 24 hrs.
[2023-06-30 11:53] LABS: POC Glucose,Bedside 149 (70-110)
--- NOTE | 2023-06-30 12:27 | EXP.ACUTE.PN ---
Subjective *Date: 06/30/23 *Time: 14:49 Interval history: Patient is having increased abdominal pain overnight with advancement of feeds. Developed fever to 101.5. No vomiting or nausea. Having appropriate output from ileostomy. Abdomen more tender in upper quadrants. Still having significant ascites output with 2 L a day draining with JPs. Stable on room air. Medical Exam Vital signs and Labs for Last 24 Hours: Vital Signs Temp Pulse Resp BP Pulse Ox O2 Del Method 06/30/23 11:24 96.7 F L 118 H 18 89/56 L 98 Room Air 06/30/23 08:00 101.9 F H 85 24 92/70 L 99 Room Air 06/30/23 06:48 Room Air 06/30/23 04:00 97.9 F 67 18 94/63 L 99 Room Air 06/30/23 01:00 Room Air 06/30/23 05:00 Room Air 06/30/23 03:00 Room Air 06/30/23 00:00 97.8 F 83 19 92/61 L 97 Room Air 06/29/23 23:00 Room Air 06/29/23 21:00 Room Air 06/29/23 20:00 Room Air 06/29/23 19:58 98.1 F 83 19 98/58 L 97 Room Air 06/29/23 18:31 Room Air 06/29/23 17:00 Room Air 06/29/23 15:00 Room Air 06/29/23 15:13 99.0 F 82 18 111/60 100 Room Air 06/29/23 13:00 Room Air Intake and Output 06/29/23 06/30/23 06/30/23 23:59 07:59 15:59 Intake Total 337 / 1716 850 / 1673 823 / 1673 Output Total 435 / 2345 1665 / 2295 630 / 2295 Balance -98 / -629 -815 / -622 193 / -622 Intake: Intake, Oral Amount 0 / 0 0 / 0 Intake, Total IV Amount 337 / 1716 850 / 1673 823 / 1673 Aa 4.25%/Calcium/Lytes/Dex 10% 823 / 823 1,000 ml @ 50 mls/hr IV .Q20H ONE Rx#:[id number] Fat Emulsions 250 ml @ 60 mls/ 69 / 319 250 / 250 hr IV 1400 FADI Rx#:[id number] Zinc/Copper/Yariel/Chromic Chl 268 / 1397 600 / 600 1 ml Mvi, Adult No.1 with Vit K 10 ml In Aa 4.25%/Calcium/ Lytes/Dex 10% 1,000 ml @ 95 mls /hr IV .[id number] ONE Rx#: [id number] Output: Output, Urine Amount 200 / 200 400 / 400 0 / 400 Output, Drainage Amount 235 / 2145 1265 / 1895 630 / 1895 GERMAN # 2 65 / 675 540 / 880 340 / 880 GERMAN #1 70 / 1120 600 / 790 190 / 790 Ostomy 100 / 350 125 / 225 100 / 225 mucous fistula 0 / 0 Other: Number of Unmeasured Voids 0 0 0 Number of Bowel Movements 1 Weight 56.245 kg Patient Weight 06/30/23 23:59 Weight 56.245 kg Laboratory Results - last 24 hr 06/29/23 16:15: Urine Color Yellow, Urine Appearance Sl cloudy, Urine pH 8.0, Ur Specific [place] 1.020, Urine Protein 3+, Urine Glucose (UA) 1+, Urine Ketones Negative, Urine Blood 3+, Urine Nitrate Negative, Urine Bilirubin Negative, Urine Urobilinogen 0.2, Ur Leukocyte Esterase Negative, Urine RBC 50-100, Urine WBC None, Ur Squamous Epith Cells None, Urine Bacteria None 06/29/23 16:22: POC Glucose 116 H 06/29/23 21:25: POC Glucose 120 H 06/30/23 07:04: WBC 7.9 D, RBC 4.05 L, Hgb 12.8 L, Hct 39.5 L, MCV 97.4 H, MCH 31.5 H, MCHC 32.4, RDW 15.4, Plt Count 132 L, MPV 10.9 H, Neut % (Auto) 85.1 H, Lymph % (Auto) 6.7 L, [place] % (Auto) 7.1, Eos % (Auto) 0.7, Baso % (Auto) 0.5, Neut # (Auto) 6.7, Lymph # (Auto) 0.5 L, [place] # (Auto) 0.6, Eos # (Auto) 0.1, Baso # (Auto) 0.0, Total Counted 100, Neutrophils % (Manual) 84 H, Lymphocytes % (Manual) 10, Monocytes % (Manual) 6, Platelet Estimate Slight decrease, RBC Morphology Normal, Sodium 126 L, Potassium 5.1, Chloride 100, Carbon Dioxide 16 L, Anion Gap 15.1 H, BUN 26 H, Creatinine 0.70, Estimated Creat Clear 59, Estimated GFR 113, Est GFR ( Amer) 137, Glucose 126 H, Calcium 8.2 L, Phosphorus 3.5, Magnesium 2.3, Total Bilirubin 0.8, AST 538 H* D, ALT 197 H D, Alkaline Phosphatase 287 H, Ammonia < 9 L, Total Protein 5.4 L, Albumin 2.3 L, Globulin 3.1, Albumin/Globulin Ratio 0.7 L 06/30/23 08:43: Lactate 2.1 06/30/23 11:40: POC Glucose 149 H I & O for Labs for Last 24 Hours: Intake & Output 06/27/23 06/28/23 06/29/23 06/30/23 23:59 23:59 23:59 23:59 Intake Total 3366 / 3366 2473 / 2473 866 / 1716 1673 / 1673
[2023-06-30 12:50] LABS: Reflex Lactic Add Lactic Reflex
[2023-06-30 13:29] LABS: Lactic Acid Follow Up (RFLX 1) 3.9 mmol/L (0.7-2.1)
[2023-06-30 14:36] LABS: Microscopic, Urine URINE MICROSCOPIC (MICROSCOPIC)
[2023-06-30 14:37] LABS: Appearance,Urine CLEAR (Clear); Blood, Urine Negative (Negative); Color,Urine DK YELLOW (Yellow); Glucose,Urine (UA) Negative (Negative); Ketones,Urine Negative (Negative); Leukocyte Esterase,Urine Negative (Negative); Nitrate,Urine Negative (Negative); Protein,Urine Negative (Negative); Urobilinogen,Urine 0.2 EU/dl (0.2)
[2023-06-30 15:00] LABS: Bilirubin,Urine 1+ (Negative)
[2023-06-30 15:06] LABS: Reflex Lactic (2 hrs) Add Lactic Reflex
--- NOTE | 2023-06-30 15:19 | HMH.ITSTN ---
US abdomen put in. I called and advised nurse Margot that does not meet call in requirement so it will be done in the morning
[2023-06-30 15:20] LABS: Bacteria,Urine Trace /lpf; Squamous Epithelial Cell,Urine Occasional #/hpf (0-5); WBC,Urine Occasional #/hpf (0-3); Yeast,Urine 4+ /lpf
[2023-06-30 17:17] LABS: POC Glucose,Bedside 125 (70-110)
--- NOTE | 2023-06-30 17:41 | PC.NURSE ---
Residual 20 ml. Tube feeds increased to 50 ml/hr. Goal is 60 ml. TPN titrated to 12.5 ml/hr.
[2023-06-30 17:51] LABS: POC Glucose,Bedside 155 (70-110)
--- NOTE | 2023-06-30 18:27 | DIET.NUTRFU ---
Pt started on trophic tube feeding on . Pt TF is up to 50mL/hr with a residual of 20mL/hr per RN note. Plan to d/c TPN today per MD progress note. Pt received 1,000mL of Sodium Chloride today. Will evaluate and increase free water flushes as needed tomorrow.
[2023-06-30 19:50] LABS: Gamma Glutamyl Transpeptidase 547 U/L (15-73)
[2023-06-30 19:53] LABS: Creatine Kinase < 20 U/L (55-170)
[2023-06-30 20:56] LABS: POC Glucose,Bedside 118 (70-110)
[2023-07-01] VITALS (22 sets, daily range): BP systolic 72–116; BP diastolic 36–71; PULSE 84–90; TEMP 36.5; O2SAT 97–100; BMI 23.1
--- NOTE | 2023-07-01 04:06 | PC.NURSE ---
Patient accepted to [facility], [address] Caba. [phone]. [facility] contacted for transport and awaiting their arrival. Primary RN has spoken to DIANNE Varela for report.
--- NOTE | 2023-07-01 04:12 | EXP.DC.SUM ---
General Admission date:: 06/12/23 Discharge date: 07/01/23 HPI HPI HPI: 63 year old male presented to the ED from [facility] for c/o abd pain, bloating, constipation for the last two weeks. PMHX of seizures and chronic hip pain. The ED workup revealed hypokalemia and a massively distended colon with swirl sign suggesting a sigmoid volvulus. The ED physician spoke with Dr. Smith for surgical consultation and the hospitalist team for admission and medical management of the patient. The patient was then taken to the Endoscopy suite to attempt decompression. 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 He is alert and oriented. NG tube is in place and connected to low wall suction. A surgical consult will be placed to assist with further medical management. Hospital Course Hospital Course Hospital Course: 06/12 The patient was transferred from the Emergency Department to the endoscopy suite for attempted decompression of suspected primary massive sigmoid volvulus with secondary proximal distention. Decompression was not able to be accomplished. A midline laparotomy incision was made. A tiny serosal laceration to the proximal/mid small bowel was noted during entry with scalpel. This was felt to be due to the degree with which the small bowel was compressed to the anterior abdominal wall secondary to underlying massive colonic distention. Although this did appear to be a small serosal only injury, imbrication with interrupted 3-0 Nurolon was completed. A massively dilated right colon and transverse colon were noted. The right colon/cecum was partially volvulized; however, further evaluation revealed that this was secondary to the primary causative transverse torsion. 06/13 TRANSVERSE COLON VOLVULUS W/ SECONDARY CECAL VOLVULUS -Having some output from ileostomy. NG transition to drain bag per surgery. Still n.p.o. at this time - White cell count normalized at 6.5. -Potassium improved today at 3.7. -Resume 20 mEq potassium supplement daily per home regimen. -Magnesium 2.0 this morning -Repeat CMP, magnesium, and CBC ordered for the morning. -Blood pressure has remained softer. Most recent BP 83/60. MAP still greater than 65. 08/13 Pre-op Diagnosis:: Acute abdomen, massive pneumoperitoneum. Post-op Diagnosis:: Same. Procedure performed:: Reopening of recent laparotomy with thorough abdominal exploration. 06/18 Stable POD6 s/p subtotal colectomy and POD2 s/p re-exploration for suspected massive free air and increasing distention/pain. No definitive evidence of obvious injury or other complication noted upon re-exploration. He continues to have output via ostomy. Moderate distention remains. 06/20 Postop days 8 and 4 status post exploratory laparotomy; however, the volume of free air seems to be discordant. He does have decreased epigastric distention this AM. In addition, no obvious leak noted per UGI series and no definitive leak noted per follow-up CT scan. The patient remains afebrile with stable normal vital signs. His white blood cell count is not elevated and he continues to deny significant pain. As previously stated, he may ultimately benefit from endoscopic evaluation and/or repeat exploration (may require transfer to a tertiary center). Currently, the plan remains to continue with nasogastric decompression and NPO status. As he may require NPO status for an extended period of time, TPN remains reasonable. 06/23 Continue n.p.o. with TPN for now due to ongoing persistence of pneumoperitoneum. 06/24 CT scan reveals persistent massive pneumoperitoneum with a large amount of fluid in the abdomen. Occult bowel perforation cannot be excluded. Given the persistent massive amount of air and
--- NOTE | 2023-07-01 04:13 | PC.NURSE ---
spoke with Linda Santo with medical office receptionist assistant guardianship to notify of transfer to [facility].
[2023-07-01 04:52] LABS: Hematocrit 34.7 % (42.0-52.0)
--- NOTE | 2023-07-01 04:55 | PC.NURSE ---
Recalled EMS to check their ETA. They had not left [facility] yet. Spoke to Meng at 0400 and just spoke to True during this call
--- NOTE | 2023-07-01 05:21 | PC.NURSE ---
PT LEFT FLOOR WITH EMS AT THIS TIME
--- NOTE | 2023-07-01 05:48 | PC.NURSE ---
06/30/23: TPN STOPPED @ 2100 TF INCREASED TO 60ML/HR @ 2200 LEVOPHED GTT STARTED @ 2310 @ 15MCG/MIN 07/01/23: LEVOPHED GTT INCREASED TO 20MCG/MIN @ 0000 LEVOPHED GTT INCREASED TO 30MCG/MIN @ 0030 REPORT CALLED TO DIANNE HONG @ [id number] AT [facility], ICU UNIT FOR PT TX HAL RN CALLED @ [id number] TO ALERT THAT PT HAS LEFT UNIT AND ON THE WAY TO
== END 2023-07-01 05:20 | disposition short-term general hospital (02) | DRG 330 ==
LOC: ER 22:17 → SDC 23:54 → 2ND 06-12 00:06
PROVIDERS: Internal Medicine; Nurse Practitioner Critical Care Medicine; Nurse Practitioner Family; Surgery; Admitting Provider Internal Medicine Adolescent Medicine; Emergency Provider Emergency Medicine; PCP Emergency Medicine; Visit Provider Internal Medicine Adolescent Medicine
PROC: 0DJD8ZZ Inspection of Lower Intestinal Tract, Via Natural or Artificial Opening Endoscopic (ICD-10-PCS; CPT 45378; principal; 2023-06-11 22:30)
PROC: 0DJD0ZZ Inspection of Lower Intestinal Tract, Open Approach (ICD-10-PCS; CPT 49000; principal; 2023-06-16 04:30)
DX: K56.2 Volvulus (principal); E44.1 Mild protein-calorie malnutrition; E87.20 Acidosis, unspecified; Z68.23 Body mass index [BMI] 23.0-23.9, adult; Z79.899 Other long term (current) drug therapy; K66.8 Other specified disorders of peritoneum; K75.9 Inflammatory liver disease, unspecified; E87.6 Hypokalemia; E88.09 Other disorders of plasma-protein metabolism, not elsewhere classified; K74.60 Unspecified cirrhosis of liver; G40.909 Epilepsy, unspecified, not intractable, without status epilepticus; E83.51 Hypocalcemia
CPT/HCPCS: 45330; 44160; 49002 ×2; 36410; 36415; 36569; 71045; 74018; 74021; 74175; 74176; 74177; 74240; 74400; 80048; 80053; 81001; 82140; 82465; 82550; 82962; 82977; 83605; 83735; 84100; 84478; 85007; 85014; 85018; 85025; 85610; 85730; 87040; 87070; 87086; 88307; 97110; 97530; 99291; C1751; J1335; J2405; J2543; J2710; J3475; P9047; Q9967